=== PATIENT | male | born 1970 | race Caucasian/White ===

== ENCOUNTER 2018-03-24 20:42 | Emergency (ER) | payer OTHER ==
[2018-03-24 20:52] VITALS: O2SAT 97
--- NOTE | 2018-03-24 21:02 | ERPHSYRPT ---
- History of Present Illness Time Seen by Provider: 03/24/18 20:57 Source: patient Exam Limitations: no limitations Patient Subjective Stated Complaint: skilled nursing clearance, etoh intox Triage Nursing Assessment: pt alert and oriented, answers questions approp. pt ambulatory with steady gait noted. respirations nonlabored with lungs cta. skin pink , warm and dry. abrasion noted to lt knee- no bleeding at this time. Physician History: The patient is a 47-year-old male brought in by [facility]'s deputy where he was pulled over all driving under the influence of alcohol. The alcohol breath test registered a 0.294. When the alcohol level is above 0.25, the patient must be seen in the ER for clearance. The patient is walking and talking without problems. He appears somewhat intoxicated. He is a long time known alcoholic. He told the officer he had been drinking many tall cans of [place]. He has no pain. Timing/Duration: today Severity: moderate Modifying Factors: Improves With: nothing Associated Symptoms: denies symptoms Allergies/Adverse Reactions: No Known Drug Allergies Allergy (Verified 03/24/18 20:53) Hx Tetanus, Diphtheria Vaccination/Date Given: Yes Hx Influenza Vaccination/Date Given: No Hx Pneumococcal Vaccination/Date Given: No Immunizations Up to Date: Yes - Review of Systems Constitutional: No Fever, No Chills Eyes: No Symptoms Ears, Nose, & Throat: No Symptoms Respiratory: No Cough, No Dyspnea Cardiac: No Chest Pain, No Edema, No Syncope Abdominal/Gastrointestinal: No Abdominal Pain, No Nausea, No Vomiting, No Diarrhea Genitourinary Symptoms: No Dysuria Musculoskeletal: No Back Pain, No Neck Pain Skin: No Rash Neurological: No Dizziness, No Focal Weakness, No Sensory Changes Psychological: Alcohol Abuse, No Suicidal Ideations Endocrine: No Symptoms Hematologic/Lymphatic: No Symptoms Immunological/Allergic: No Symptoms All Other Systems: Reviewed and Negative - Past Medical History Pertinent Past Medical History: Yes Cardiac History: Hypertension Musculoskeletal History: Arthritis GI Medical History: GERD - Past Surgical History Past Surgical History: No - Social History Smoking Status: Current every day smoker How long have you smoked: years Exposure to second hand smoke: No Drug Use: none Patient Lives Alone: No - Nursing Vital Signs Nursing Vital Signs: Initial Vital Signs Temperature 98.8 F 03/24/18 20:44 Pulse Rate 86 03/24/18 20:44 Respiratory Rate 18 03/24/18 20:44 Blood Pressure 165/117 03/24/18 20:44 O2 Sat by Pulse Oximetry 97 03/24/18 20:44 Pain Scale Pain Intensity 0 - Physical Exam General Appearance: no apparent distress, alert Eye Exam: PERRL/EOMI, eyes nml inspection Ears, Nose, Throat Exam: normal ENT inspection, TMs normal, pharynx normal, moist mucous membranes Neck Exam: normal inspection, non-tender, supple, full range of motion Respiratory Exam: normal breath sounds, lungs clear, No respiratory distress Cardiovascular Exam: regular rate/rhythm, normal heart sounds, normal peripheral pulses Gastrointestinal/Abdomen Exam: soft, normal bowel sounds, No tenderness, No mass Rectal Exam: not done Back Exam: normal inspection, normal range of motion, No CVA tenderness, No vertebral tenderness Extremity Exam: normal inspection, normal range of motion, pelvis stable Neurologic Exam: alert, oriented x 3, cooperative, normal mood/affect, nml cerebellar function, nml station & gait, sensation nml, intoxicated appearance ( mild), No motor deficits Skin Exam: normal color, warm, dry, No rash Lymphatic Exam: No adenopathy SpO2 Interpretation: normal SpO2: 97 Oxygen Delivery: Room Air - Departure Time of Disposition: 21:02 Departure Disposition: Long Term/Usp Clinical Impression: Alcohol intoxication Condition: Stable Critical Care Time: No Referrals: DOCTOR,NO FAMILY [Primary Care Provider] - Additional Instructions: You have alcohol intoxication. You have been cleared for escort by the [facility] kn[facility] helper to skilled nursing. Do not drink and drive.
[2018-03-24 21:21] VITALS: BP 161/109; PULSE 85
== END 2018-03-24 21:21 | disposition home or self-care (01) ==
LOC: ED 20:42
DX: F10.129 Alcohol abuse with intoxication, unspecified (principal)
CPT/HCPCS: 99283

== ENCOUNTER 2021-04-15 17:56 | Emergency (ER) | payer SELFPAY ==
[2021-04-15] MEDS ORDERED: XYLOCAINE 1%/Epi 1:100000 MDV 20 ML ONE (18:03)
--- NOTE | 2021-04-15 18:39 | ERPHSYRPT ---
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 pt has footdrop on right foot and he tripped. denies any LOC. noted 6 cm lac that is bleeding and swollen on arrival. pt states he is able to place tongue through laceration. Physician History: Angel is a 50-year-old male who after drinking suffered a fall and his new dentures caused a less serration to the lip and chin that was through and through. He had no loss of consciousness no other injury. Timing/Duration: today Quality: painful Severity: moderate Location: face Possible Causes: no cause identified Allergies/Adverse Reactions: No Known Drug Allergies Allergy (Verified 04/15/21 18:13) Home Medications: Clopidogrel Bisulfate [Plavix] 75 mg PO DAILY 04/15/21 [History] Meloxicam 7.5 mg PO DAILY 04/15/21 [History] Omeprazole Magnesium [Prilosec Otc] 20 mg PO DAILY 04/15/21 [History] Hx Tetanus, Diphtheria Vaccination/Date Given: Yes Hx Influenza Vaccination/Date Given: No Hx Pneumococcal Vaccination/Date Given: No Immunizations Up to Date: No Travel Risk - International Travel Have you traveled outside of the country in past 3 weeks: No - Coronavirus Screening Are you exhibiting any of the following symptoms?: No Close contact with a COVID-19 positive Pt in past 14-21 Days: No - Vaccine Status Have you recieved a Covid-19 vaccination: No - Review of Systems Constitutional: No Fever, No Chills Eyes: No Symptoms Ears, Nose, & Throat: No Symptoms Respiratory: No Cough, No Dyspnea Cardiac: No Chest Pain, No Edema, No Syncope Abdominal/Gastrointestinal: No Abdominal Pain, No Nausea, No Vomiting, No Diarrhea Genitourinary Symptoms: No Dysuria Musculoskeletal: No Back Pain, No Neck Pain Skin: No Rash Neurological: No Dizziness, No Focal Weakness, No Sensory Changes Psychological: No Symptoms Endocrine: No Symptoms All Other Systems: Reviewed and Negative - Past Medical History Pertinent Past Medical History: Yes Cardiac History: Hypertension Musculoskeletal History: Arthritis GI Medical History: GERD - Past Surgical History Past Surgical History: No - Social History Smoking Status: Current every day smoker How long have you smoked: years Exposure to second hand smoke: No Drug Use: none Patient Lives Alone: No - Nursing Vital Signs Nursing Vital Signs: Initial Vital Signs Pulse Rate 80 04/15/21 18:05 Respiratory Rate 19 04/15/21 18:05 Blood Pressure 203/144 04/15/21 18:05 O2 Sat by Pulse Oximetry 98 04/15/21 18:05 Pain Scale Pain Intensity 7 - Physical Exam General Appearance: no apparent distress, alert Eye Exam: PERRL/EOMI, eyes nml inspection Ears, Nose, Throat Exam: normal ENT inspection, pharynx normal, moist mucous membranes Neck Exam: normal inspection, non-tender, supple, full range of motion Respiratory Exam: normal breath sounds, lungs clear, No respiratory distress Cardiovascular Exam: regular rate/rhythm, normal heart sounds Gastrointestinal/Abdomen Exam: soft, mass, No tenderness Back Exam: normal inspection, normal range of motion, No CVA tenderness, No vertebral tenderness Extremity Exam: normal inspection, normal range of motion Neurologic Exam: alert, oriented x 3, cooperative, normal mood/affect, sensation nml, No motor deficits Skin Exam: normal color, warm, dry, laceration (There is a laceration to the lower lip and chin through and through to the oral mucosa that measure 6 cm it is closed in 2 layers on the skin externally there is 5-0 nylon sutures the oral mucosa is closed with nine 3-0 Vicryl sutures.) SpO2 Interpretation: normal SpO2: 98 O2 Delivery: Room Air Procedures - Laceration/Wound Repair Lower Lip Time of Procedure: 18:40 Wound Location: face Wound Length (cm): 6 Wound's Depth, Shape: linear (A linear 6 cm through and through laceration of the lower lip and chin) Wound Explored: clean Irrigated: Yes Hibiclens Prep: Yes Anesthesia: 1% lidocaine w/ Epi Volume Anesthetic (ccs): 8 Wound Debrided: minimal Suture Size/Type: 5-0, 3-0, nylon (Nylon was used to close the skin), vicryl (Vicryl was used to close the oral mucosa.) Number of Sutures: 15 Layer Closure?: Yes Deep Layer Suture Size/Type: 3:0, chromic Number Deep Layer Sutures: 9 Sterile Dressing Applied?: No Splint Applied?: No Sling Applied?: No - Course Nursing assessment & vital signs reviewed: Yes Ordered Tests: Medication Summary Discontinued Medications Generic Name Dose Route Start Last Admin Trade Name Rojelio PRN Reason Stop Dose Admin Lidocaine/Epinephrine Confirm 04/15/21 18:03 Xylocaine 1%/Epi [id number] Mdv 20 Ml Administered 04/15/21 18:04 Dose 5 ml .ROUTE .[employer] ONE - Progress Progress: improved - Departure Departure Disposition: Home Clinical Impression: Laceration of lip, complicated, Alcohol intoxication Condition: Stable Critical Care Time: No Referrals: DOCTOR,NO FAMILY [Primary Care Provider] - Instructions: Surgical Wound (DC), Laceration Repair With Stitches (DC) Additional Instructions: Watch for infection sutures removal in 7 days Prescriptions: Amoxicillin/Potassium Clav [Augmentin 875-125 Tablet] 875 mg PO BID 10 Days #20 tablet
[2021-04-15 18:45] VITALS: BP 200/125; PULSE 79; O2SAT 97
== END 2021-04-15 18:45 | disposition home or self-care (01) ==
LOC: ED 17:56
DX: S01.511A Laceration without foreign body of lip, initial encounter (principal); F10.129 Alcohol abuse with intoxication, unspecified; W01.0XXA Fall on same level from slipping, tripping and stumbling without subsequent striking against object, initial encounter; I10 Essential (primary) hypertension; Z79.899 Other long term (current) drug therapy
CPT/HCPCS: 99283

== ENCOUNTER 2022-10-02 00:18 | Observation (INO) | payer OTHER, BC ==
--- NOTE | 2022-10-02 00:30 | ERPHSYRPT ---
- History of Present Illness Time Seen by Provider: 10/02/22 00:30 Historian: patient Exam Limitations: no limitations Physician History: This is a 52-year-old white male patient who does consume alcohol but too much less extent than he used to and has a history of recurrent pancreatitis. He presents with 2-day history of upper bilateral abdominal pain and bilateral f lank pain. Patient states the last time he consumed any alcohol was 12 hours ago. He does have a past history of alcohol abuse. Patient has a history of gastroesophageal reflux disease and hypertension. He did vomit twice but it was after taking pain medicine on an empty stomach in the last 12 hours Quality: aching Abdominal Pain Onset Location: RUQ, LUQ, flank Pain Radiation: flank (Bilateral) Severity of Pain-Max: moderate Severity of Pain-Current: moderate Modifying Factors: Improves With: vomiting (Twice after taking tramadol on an empty stomach) Associated Symptoms: nausea, vomiting, No chest pain, No fever/chills, No shortness of breath Previous symptoms: same symptoms as today, no recent treatment Allergies/Adverse Reactions: No Known Drug Allergies Allergy (Verified 10/02/22 01:52) Home Medications: Clopidogrel Bisulfate [Plavix] 75 mg PO DAILY 04/15/21 [History] Omeprazole Magnesium [Prilosec Otc] 20 mg PO DAILY 04/15/21 [History] Amlodipine Besylate 5 mg PO DAILY 10/02/22 [History] Losartan Potassium 50 mg [Cozaar 50 MG] 50 mg PO DAILY 10/02/22 [History] Metoprolol Succinate 25 mg Xl* [Toprol-Xl 25MG Tablets] 25 mg PO DAILY 10/02/22 [History] Hx Tetanus, Diphtheria Vaccination/Date Given: Yes Hx Influenza Vaccination/Date Given: No Hx Pneumococcal Vaccination/Date Given: No Travel Risk - International Travel Have you traveled outside of the country in past 3 weeks: No - Coronavirus Screening Are you exhibiting any of the following symptoms?: No Close contact with a COVID-19 positive Pt in past 14-21 Days: No - Vaccine Status Have you recieved a Covid-19 vaccination: No - Review of Systems Constitutional: No Symptoms Eyes: No Symptoms Ears, Nose, & Throat: No Symptoms Respiratory: No Symptoms Cardiac: No Symptoms Abdominal/Gastrointestinal: Abdominal Pain, Vomiting Genitourinary Symptoms: No Symptoms Musculoskeletal: No Symptoms Skin: No Symptoms Neurological: No Symptoms Psychological: No Symptoms Endocrine: No Symptoms Hematologic/Lymphatic: No Symptoms Immunological/Allergic: No Symptoms All Other Systems: Reviewed and Negative - Past Medical History Pertinent Past Medical History: Yes Cardiac History: Hypertension Musculoskeletal History: Arthritis GI Medical History: GERD - Past Surgical History Past Surgical History: No - Social History Smoking Status: Current every day smoker How long have you smoked: years Exposure to second hand smoke: No Drug Use: none Patient Lives Alone: No - Nursing Vital Signs Nursing Vital Signs: Initial Vital Signs Temperature 97.8 F 10/02/22 01:44 Pulse Rate 73 10/02/22 01:44 Respiratory Rate 18 10/02/22 01:44 Blood Pressure 175/102 10/02/22 01:44 O2 Sat by Pulse Oximetry 99 10/02/22 01:44 Pain Scale Pain Intensity 4 - Physical Exam General Appearance: no apparent distress, alert, anxiety Eye Exam: PERRL/EOMI, eyes nml inspection Ears, Nose, Throat Exam: normal ENT inspection, moist mucous membranes Neck Exam: normal inspection, non-tender, supple, full range of motion Respiratory Exam: normal breath sounds, lungs clear, airway intact, No chest tenderness, No respiratory distress Cardiovascular Exam: regular rate/rhythm, normal heart sounds, normal peripheral pulses Gastrointestinal/Abdomen Exam: soft, normal bowel sounds, tenderness (Bilateral upper quadrant region), guarding (Mild with palpation in the bilateral upper quadrants of the abdomen) Rectal Exam: not done Back Exam: normal inspection, normal range of motion, No CVA tenderness, No vertebral tenderness Extremity Exam: normal inspection, normal range of motion, pelvis stable Neurologic Exam: alert, oriented x 3, cooperative, nurse assistant II-XII nml as tested, normal mood/affect, nml cerebellar function, nml station & gait, sensation nml Skin Exam: normal color, warm, dry Lymphatic Exam: No adenopathy SpO2 Interpretation: normal O2 Delivery: Room Air - Course Nursing assessment & vital signs reviewed: Yes Ordered Tests: Active Orders 24 hr Category Date Time Status IV Insertion STAT Care 10/02/22 01:43 Active ABDOMEN AND PELVIS W/0 CONTRAS [CT] Stat Exams 10/02/22 01:43 Taken AMYLASE Stat Lab 10/02/22 02:03 Completed CBC W DIFF Stat Lab 10/02/22 02:03 Completed CMP Stat Lab 10/02/22 02:03 Completed ETHYL ALCOHOL Stat Lab 10/02/22 02:03 Completed LIPASE Stat Lab 10/02/22 02:03 Completed Lactic Acid Stat Lab 10/02/22 02:20 Completed UA W/RFX CULTURE Stat Lab 10/02/22 01:47 Completed Medication Summary Discontinued Medications Generic Name Dose Route Start Last Admin Trade Name Figueroaq PRN Reason Stop Dose Admin Hydromorphone HCl 1 mg 10/02/22 01:43 10/02/22 02:07 Hydromorphone 1 Mg/1ml Inj 1 Mg/Ml Syringe IV 10/02/22 01:44 1 mg STAT ONE Administration Hydromorphone HCl Confirm 10/02/22 02:00 Hydromorphone 1 Mg/1ml Inj 1 Mg/Ml Syringe Administered 10/02/22 02:01 Dose 1 mg .ROUTE .STK-MED ONE Sodium Chloride 1,000 mls @ 999 mls/hr 10/02/22 01:43 10/02/22 02:07 Sodium Chloride 0.9% 1000 Ml IV 10/02/22 02:43 999 mls/hr .Q1H1M STA Administration Sodium Chloride Confirm 10/02/22 02:00 Sodium Chloride 0.9% 1000 Ml Administered 10/02/22 02:01 Dose 1,000 mls @ ud .ROUTE .STK-MED ONE Sodium Chloride 1,000 mls @ 999 mls/hr 10/02/22 02:59 10/02/22 03:07 Sodium Chloride 0.9% 1000 Ml IV 10/02/22 03:59 999 mls/hr .Q1H1M STA Administration Sodium Chloride Confirm 10/02/22 03:06 Sodium Chloride 0.9% 1000 Ml Administered 10/02/22 03:07 Dose 1,000 mls @ ud .ROUTE .STK-MED ONE Ondansetron HCl 4 mg 10/02/22 01:43 10/02/22 02:07 Ondansetron Hcl 4 Mg/2 Ml Vial IV 10/02/22 01:44 4 mg STAT ONE Administration Ondansetron HCl Confirm 10/02/22 02:00 Ondansetron Hcl 4 Mg/2 Ml Vial Administered 10/02/22 02:01 Dose 4 mg .ROUTE .STK-MED ONE Pantoprazole Sodium 40 mg 10/02/22 01:43 10/02/22 02:06 Pantoprazole 40 Mg Vial IV 10/02/22 01:44 40 mg STAT ONE Administration Pantoprazole Sodium Confirm 10/02/22 02:00 Pantoprazole 40 Mg Vial Administered 10/02/22 02:01 Dose 40 mg IV .[facility] ONE Lab/Rad Data: Laboratory Result Diagrams 10/02/22 02:03 10/02/22 02:03 Laboratory Results 10/02/22 10/02/22 10/02/22 Range/Units 03:10 02:20 02:03 WBC (4.0-10.5) x10^3/uL RBC (4.1-5.6) x10^6/uL Hgb (12.5-18.0) g/dL Hct (42-50) % MCV (78-100) fL MCH (26-32) pg MCHC (32-36) g/dL RDW (11.5-14.0) % Plt Count (150-450) x10^3/uL MPV (7.5-11.0) fL Gran % (36.0-66.0) % Immature Gran % (Auto) (0.00-0.4) % Nucleat RBC Rel Count (0.00-0.1) % Eos # (Auto) (0-0.5) x10^3/uL Immature Gran # (Auto) (0.00-0.03) x10^3u/L Absolute Lymphs (auto) (1.0-4.6) x10^3/uL Absolute Monos (auto) (0.0-1.3) x10^3/uL Absolute Nucleated RBC (0.00-0.01) x10^3u/L Lymphocytes % (24.0-44.0) % Monocytes % (0.0-12.0) % Eosinophils % (0.00-5.0) % Basophils % (0.0-0.4) % Absolute Granulocytes (1.4-6.9) x10^3/uL Basophils # (0-0.4) x10^3/uL Sodium (137-145) mmol/L Potassium (3.5-5.1) mmol/L Chloride (98-107) mmol/L Carbon Dioxide (22-30) mmol/L Anion Gap (5-15) MEQ/L BUN (9-20) mg/dL Creatinine (0.66-1.25) mg/dL Estimated GFR ML/MIN Glucose (74-106) mg/dL Lactic Acid 1.0 (0.4-2.0) Calcium (8.4-10.2) mg/dL Total Bilirubin (0.2-1.3) mg/dL AST (17-59) U/L ALT (0-50) U/L Alkaline Phosphatase (38-126) U/L Serum Total Protein (6.3-8.2) g/dL Albumin (3.5-5.0) g/dL Amylase (30-110) U/L Lipase (23-300) U/L Urinalys Dipstick Clnc Urine Color (YELLOW) Urine Appearance (CLEAR) Urine pH (5-6) Ur Specific [place] (1.005-1.025) POC Urine Protein Conf (Negative) Urine Ketones (NEGATIVE) Urine Nitrite (NEGATIVE) Urine Bilirubin (NEGATIVE) Urine Urobilinogen (0-1) mg/dL Urine Leukocytes (NEGATIVE) Urine WBC (Auto) (0-5) /HPF Urine RBC (Auto) (0-2) /HPF U Epithel Cells (Auto) (FEW) /HPF Urine Bacteria (Auto) (NEGATIVE) /HPF Urine RBC (0-5) Ayad/ul Ur Culture Indicated? Urine Glucose (NEGATIVE) mg/dL Ethyl Alcohol < 10 (0-10) mg/dL Influenza Type A Ag NEGATIVE (NEGATIVE) Influenza Type B Ag NEGATIVE (NEGATIVE) RSV (PCR) NEGATIVE (Negative) SARS-CoV-2 (PCR) NEGATIVE (NEGATIVE) 10/02/22 10/02/22 10/02/22 Range/Units 02:03 02:03 01:47 WBC 11.3 H (4.0-10.5) x10^3/uL RBC 5.32 (4.1-5.6) x10^6/uL Hgb 16.3 (12.5-18.0) g/dL Hct 48.0 (42-50) % MCV 90.2 (78-100) fL MCH 30.6 (26-32) pg MCHC 34.0 (32-36) g/dL RDW 12.4 (11.5-14.0) % Plt Count 223 (150-450) x10^3/uL MPV 9.4 (7.5-11.0) fL Gran % 76.5 H (36.0-66.0) % Immature Gran % (Auto) 0.3 (0.00-0.4) % Nucleat RBC Rel Count 0.0 (0.00-0.1) % Eos # (Auto) 0.16 (0-0.5) x10^3/uL Immature Gran # (Auto) 0.03 (0.00-0.03) x10^3u/L Absolute Lymphs (auto) 1.24 (1.0-4.6) x10^3/uL Absolute Monos (auto) 1.20 (0.0-1.3) x10^3/uL Absolute Nucleated RBC 0.00 (0.00-0.01) x10^3u/L Lymphocytes % 11.0 L (24.0-44.0) % Monocytes % 10.6 (0.0-12.0) % Eosinophils % 1.4 (0.00-5.0) % Basophils % 0.2 (0.0-0.4) % Absolute Granulocytes 8.63 H (1.4-6.9) x10^3/uL Basophils # 0.02 (0-0.4) x10^3/uL Sodium 127 L (137-145) mmol/L Potassium 4.3 (3.5-5.1) mmol/L Chloride 95 L (98-107) mmol/L Carbon Dioxide 25 (22-30) mmol/L Anion Gap 12.0 (5-15) MEQ/L BUN 7 L (9-20) mg/dL Creatinine 0.52 L (0.66-1.25) mg/dL Estimated GFR > 60.0 ML/MIN Glucose 117 H (74-106) mg/dL Lactic Acid (0.4-2.0) Calcium 9.1 (8.4-10.2) mg/dL Total Bilirubin 0.70 (0.2-1.3) mg/dL AST 35 (17-59) U/L ALT 31 (0-50) U/L Alkaline Phosphatase 79 (38-126) U/L Serum Total Protein 8.1 (6.3-8.2) g/dL Albumin 4.4 (3.5-5.0) g/dL Amylase 1645 H (30-110) U/L Lipase 38780 H (23-300) U/L Urinalys Dipstick Clnc MAIN LAB Urine Color YELLOW (YELLOW) Urine Appearance CLEAR (CLEAR) Urine pH 6.5 (5-6) Ur Specific [place] 1.015 (1.005-1.025) POC Urine Protein Conf NEGATIVE (Negative) Urine Ketones SMALL-15 A (NEGATIVE) Urine Nitrite NEGATIVE (NEGATIVE) Urine Bilirubin NEGATIVE (NEGATIVE) Urine Urobilinogen 0.2 (0-1) mg/dL Urine Leukocytes NEGATIVE (NEGATIVE) Urine WBC (Auto) 0-2 (0-5) /HPF Urine RBC (Auto) NONE (0-2) /HPF U Epithel Cells (Auto) RARE (FEW) /HPF Urine Bacteria (Auto) NONE SEEN (NEGATIVE) /HPF Urine RBC NEGATIVE (0-5) Ayad/ul Ur Culture Indicated? NO Urine Glucose NEGATIVE (NEGATIVE) mg/dL Ethyl Alcohol (0-10) mg/dL Influenza Type A Ag (NEGATIVE) Influenza Type B Ag (NEGATIVE) RSV (PCR) (Negative) SARS-CoV-2 (PCR) (NEGATIVE) - Progress Progress: improved, pain not gone completely Progress Note: 10/02/22 04:56 CAT scan of the abdomen pelvis shows. Pancreatic stranding with pancreatic swelling. There is no pancreatic abscess or fluid collection. Medical decision making: This patient has acute pancreatitis. I spoke with Dr. Rhoades who is covering for unassigned patients. He accepts the patient for placement in the hospital for observation. Patient clinically states that he is improving. [facility]. Counseled pt/family regarding: lab results, diagnosis, rad results - Departure Departure Disposition: Observation Clinical Impression: Acute pancreatitis Condition: Stable Critical Care Time: No Referrals: HOSPITAL,'S [Primary Care Provider] - Follow up/PCP as directed
[2022-10-02] MEDS ORDERED: Sodium Chloride 0.9% 1000 ML 1,000 ML IV STA ×2 (01:43→02:59)
[2022-10-02] MEDS ORDERED: Hydromorphone 1 mg/ml Injection IV ONE (01:43)
[2022-10-02] MEDS ORDERED: PROTONIX 40 MG IV IV ONE ×3 (01:43→05:34)
[2022-10-02] MEDS ORDERED: Zofran 4 MG/2 ML VIAL IV ONE (01:43)
[2022-10-02] MEDS ORDERED: Zofran 4 MG/2 ML VIAL ONE (02:00)
[2022-10-02] MEDS ORDERED: Sodium Chloride 0.9% 1000 ML 1,000 ML ONE ×2 (02:00→03:06)
[2022-10-02] MEDS ORDERED: Hydromorphone 1 mg/ml Injection ONE (02:00)
[2022-10-02 02:06] LABS: Appearance CLEAR (CLEAR); Bilirubin NEGATIVE (NEGATIVE); Epithelial Cells RARE /HPF (FEW); Glucose NEGATIVE (NEGATIVE); Ketones SMALL-15 (NEGATIVE); Nitrite NEGATIVE (NEGATIVE); Ph 6.5 (5-6); Protein,Urine Dip NEGATIVE (Negative); RBC NEGATIVE Ery/ul (0-5); Specific Gravity 1.015 (1.005-1.025); Urobilinogen 0.2 mg/dL (0-1); WBC 0-2 /HPF (0-5)
[2022-10-02 02:06] LABS: Absolute Neutrophil Ct (ANC) 8.63 x10^3/uL (1.4-6.9); Basophil (Absolute #) 0.02 x10^3/uL (0-0.4); Eosinophil % 1.4 % (0.00-5.0); Eosinophil (Absolute #) 0.16 x10^3/uL (0-0.5); Hemoglobin 16.3 g/dL (12.5-18.0); Lymphocyte (Absolute #) 1.24 x10^3/uL (1.0-4.6); Mean Cell Volume 90.2 fL (78-100); Mean Corpuscular Hemoglobin 30.6 pg (26-32); Mean Platelet Volume 9.4 fL (7.5-11.0); Monocytes % 10.6 % (0.0-12.0); Neutrophil % 76.5 % (36.0-66.0); Platelet Count 223 x10^3/uL (150-450); Red Blood Count 5.32 x10^6/uL (4.1-5.6); Red Cell Distribution Width 12.4 % (11.5-14.0); White Blood Count 11.3 x10^3/uL (4.0-10.5)
[2022-10-02 02:07] LABS: Bacteria NONE SEEN /HPF (NEGATIVE); Dipstick done @ ? MAIN LAB; Urine Cultured Indicated? NO
[2022-10-02 02:22] LABS: ALBUMIN 4.4 g/dL (3.5-5.0); ALKALINE PHOSPHATASE 79 U/L (38-126); BLOOD UREA NITROGEN 7 mg/dL (9-20); CHLORIDE 95 mmol/L (98-107); Calcium 9.1 mg/dL (8.4-10.2); Carbon Dioxide 25 mmol/L (22-30); Creatinine 1 0.52 mg/dL (0.66-1.25); EST GLOMERULAR FILTRATION RATE > 60.0 ML/MIN; Glucose 117 mg/dL (74-106); Potassium 4.3 mmol/L (3.5-5.1); SGOT/AST 35 U/L (17-59); SGPT/ALT 31 U/L (0-50); SODIUM 127 mmol/L (137-145); Total Protein 8.1 g/dL (6.3-8.2)
[2022-10-02 02:28] LABS: AMYLASE 1645 U/L (30-110)
[2022-10-02 02:44] LABS: LIPASE 15112 U/L (23-300)
[2022-10-02 03:48] LABS: INFLUENZA A NEGATIVE (NEGATIVE); INFLUENZA B NEGATIVE (NEGATIVE); RESPIRATORY SYNCTIAL VIRUS NEGATIVE (Negative); SARS-CoV-2 Xpert Express NEGATIVE (NEGATIVE)
[2022-10-02] MEDS ORDERED: TYLENOL 325 MG PO PRN (05:34)
[2022-10-02] MEDS ORDERED: Zofran 4 MG/2 ML VIAL IV PRN (05:34)
[2022-10-02] MEDS ORDERED: Ativan 2 MG/1 ML VIAL IV PRN (05:34)
[2022-10-02] MEDS: Hydromorphone 1 mg/ml Injection IV PRN ×5 (05:45→23:20)
[2022-10-02] MEDS: Sodium Chloride 0.9% 1000 ML 1,000 ML IV SCH ×3 (05:45→21:19)
--- NOTE | 2022-10-02 09:05 | XRAY ---
Indication: Abdomen/pelvic pain and diarrhea. History of pancreatitis. Multiple contiguous axial images obtained through the abdomen and pelvis without contrast. Comparison: None Lung bases clear. Heart not enlarged. Noncontrasted stomach and bowel loops appear nonobstructed with normal appendix and minimal sigmoid diverticulosis. Pancreas mildly edematous with mild peripancreatic stranding favoring acute pancreatitis. No free fluid/air. Mild diffuse fatty liver. Remaining liver, gallbladder, spleen, adrenal glands, kidneys, ureters, and bladder are unremarkable for noncontrast exam. Mild scattered aortoiliac calcifications without AAA. Osseous structures intact with minimal degenerative changes throughout the spine. Impression: 1. CT findings favoring acute pancreatitis. No free fluid/air. 2. Colonic diverticulosis, fatty liver, arteriosclerotic disease, chronic bony findings. Comment: Preliminary interpretation by [facility]. No critical discrepancy.
[2022-10-02] MEDS: NORVASC 5 MG PO SCH (09:10)
[2022-10-02] MEDS: FOLATE 1 MG PO SCH (09:10)
[2022-10-02] MEDS: PLAVIX Tablet PO SCH (09:10)
[2022-10-02] MEDS: VITAMIN B-1 100 MG PO SCH (09:10)
[2022-10-02] MEDS: Toprol-Xl 25MG Tablets PO SCH (09:10)
[2022-10-02] MEDS: Protonix 40MG Tablet PO SCH (09:11)
[2022-10-02] MEDS: THERAGRAN MULTIVITAMIN PO SCH (09:11)
[2022-10-02] MEDS: Cozaar 50 MG PO SCH (09:11)
[2022-10-02] MEDS ORDERED: NON-FORMULARY ITEM (Omeprazole Magnesium [Prilosec Otc] 20 MG Tablet.Dr) PO SCH (10:00)
--- NOTE | 2022-10-02 13:02 | PCM.HP ---
History of Present Illness - Chief Complaint Chief Complaint: Pancreatitis History of Present Illness: Mr.LEWIS WALLACE is a 52 year old male.presents with 2-day history of upper bilateral abdominal pain and bilateral flank pain. Patient states the last time he consumed any alcohol was 12 hours ago. He does have a past history of alcohol abuse. Patient has a history of gastroesophageal reflux disease and hypertension. He did vomit twice but it was after taking pain medicine on an empty stomach in the last 12 hours Quality: aching Abdominal Pain Onset Location: RUQ, LUQ, flank Pain Radiation: flank (Bilateral) Severity of Pain-Max: moderate Severity of Pain-Current: moderate Modifying Factors: Improves With: vomiting (Twice after taking tramadol on an empty stomach) Associated Symptoms: nausea, vomiting, No chest pain, No fever/chills, No shortness of breath Previous symptoms: same symptoms as today, no recent treatment - Review of Systems Constitutional: No Fever, No Chills Eyes: No Symptoms Ears, Nose, & Throat: No Symptoms Respiratory: No Cough, No Short Of Breath Cardiac: No Chest Pain, No Edema, No Syncope Abdominal/Gastrointestinal: Abdominal Pain, Nausea, Vomiting, No Diarrhea Genitourinary Symptoms: No Dysuria Musculoskeletal: No Back Pain, No Neck Pain Skin: No Rash Neurological: No Dizziness, No Focal Weakness, No Sensory Changes Psychological: No Symptoms Endocrine: No Symptoms Hematologic/Lymphatic: No Symptoms Immunological/Allergic: No Symptoms Medications & Allergies Home Medications: Home Medication List Clopidogrel Bisulfate [Plavix] 75 mg PO DAILY 04/15/21 [History Confirmed 10/02/22] Omeprazole Magnesium [Prilosec Otc] 20 mg PO DAILY 04/15/21 [History Confirmed 10/02/22] Amlodipine Besylate 5 mg PO DAILY 10/02/22 [History Confirmed 10/02/22] Losartan Potassium 50 mg [Cozaar 50 MG] 50 mg PO DAILY 10/02/22 [History Confirmed 10/02/22] Metoprolol Succinate 25 mg Xl* [Toprol-Xl 25MG Tablets] 25 mg PO DAILY 10/02/22 [History Confirmed 10/02/22] Allergies/Adverse Reactions: Allergies Allergy/AdvReac Type Severity Reaction Status Date / Time No Known Drug Allergies Allergy Verified 10/02/22 05:39 - Past Medical History Past Medical History: Yes Neurological History: TIA ENT History: No Pertinent History Cardiac History: Coronary Artery Disease, High Cholesterol, Hypertension Respiratory History: Asthma, Pulmonary Embolism Endocrine Medical History: No Pertinent History Musculoskelatal History: Arthritis GI Medical History: GERD, Pancreatitis History: No Pertinent History Pyscho-Social History: No Pertinent History Male Reproductive Disorders: No Pertinent History Comment: PFO - Past Surgical History Past Surgical History: No Neuro Surgical History: No Pertinent History Cardiac History: No Pertinent History Respiratory Surgery: No Pertinent History GI Surgical History: No Pertinent History Genitourinary Surgical Hx: No Pertinent History Musculskeletal Surgical Hx: No Pertinent History Male Surgical History: Vasectomy - Social History Smoking Status: Current every day smoker How long have you smoked: 30 years Exposure to second hand smoke: No Alcohol: Daily Drug Use: none - Physical Exam Vital Signs: Vital Signs - 24 hr Temp Pulse Resp BP Pulse Ox 10/02/22 12:00 98.3 F 75 18 141/82 93 L 10/02/22 08:00 18 10/02/22 07:10 98.5 F 80 16 109/64 96 10/02/22 05:51 97.8 F 80 16 174/107 95 10/02/22 05:25 83 16 163/107 99 10/02/22 04:00 68 16 154/112 98 10/02/22 03:00 73 18 146/102 96 10/02/22 02:00 70 18 156/102 96 10/02/22 01:44 97.8 F 73 18 175/102 99 General Appearance: no apparent distress, alert Neurologic Exam: alert, oriented x 3, cooperative, normal mood/affect, nml cerebellar function, nml station & gait, sensation nml, No motor deficits Eye Exam: PERRL/EOMI, eyes nml inspection Ears, Nose, Throat Exam: normal ENT inspection, TMs normal, pharynx normal, moist mucous membranes Neck Exam: normal inspection, non-tender, supple, full range of motion Respiratory Exam: normal breath sounds, lungs clear, No respiratory distress Cardiovascular Exam: regular rate/rhythm, normal heart sounds, normal peripheral pulses Gastrointestinal/Abdomen Exam: soft, normal bowel sounds, No tenderness, No mass Back Exam: normal inspection, normal range of motion, No CVA tenderness, No vertebral tenderness Extremity Exam: normal inspection, normal range of motion, pelvis stable Skin Exam: normal color, warm, dry, No rash Lymphatic Exam: No adenopathy Results - Labs Lab/Micro Results: Lab Results-Last 24 Hours 10/02/22 10/02/22 10/02/22 Range/Units 01:47 02:03 02:03 WBC 11.3 H (4.0-10.5) x10^3/uL RBC 5.32 (4.1-5.6) x10^6/uL Hgb 16.3 (12.5-18.0) g/dL Hct 48.0 (42-50) % MCV 90.2 (78-100) fL MCH 30.6 (26-32) pg MCHC 34.0 (32-36) g/dL RDW 12.4 (11.5-14.0) % Plt Count 223 (150-450) x10^3/uL MPV 9.4 (7.5-11.0) fL Gran % 76.5 H (36.0-66.0) % Immature Gran % (Auto) 0.3 (0.00-0.4) % Nucleat RBC Rel Count 0.0 (0.00-0.1) % Eos # (Auto) 0.16 (0-0.5) x10^3/uL Immature Gran # (Auto) 0.03 (0.00-0.03) x10^3u/L Absolute Lymphs (auto) 1.24 (1.0-4.6) x10^3/uL Absolute Monos (auto) 1.20 (0.0-1.3) x10^3/uL Absolute Nucleated RBC 0.00 (0.00-0.01) x10^3u/L Lymphocytes % 11.0 L (24.0-44.0) % Monocytes % 10.6 (0.0-12.0) % Eosinophils % 1.4 (0.00-5.0) % Basophils % 0.2 (0.0-0.4) % Absolute Granulocytes 8.63 H (1.4-6.9) x10^3/uL Basophils # 0.02 (0-0.4) x10^3/uL Sodium 127 L (137-145) mmol/L Potassium 4.3 (3.5-5.1) mmol/L Chloride 95 L (98-107) mmol/L Carbon Dioxide 25 (22-30) mmol/L Anion Gap 12.0 (5-15) MEQ/L BUN 7 L (9-20) mg/dL Creatinine 0.52 L (0.66-1.25) mg/dL Estimated GFR > 60.0 ML/MIN Glucose 117 H (74-106) mg/dL Lactic Acid (0.4-2.0) Calcium 9.1 (8.4-10.2) mg/dL Total Bilirubin 0.70 (0.2-1.3) mg/dL AST 35 (17-59) U/L ALT 31 (0-50) U/L Alkaline Phosphatase 79 (38-126) U/L Serum Total Protein 8.1 (6.3-8.2) g/dL Albumin 4.4 (3.5-5.0) g/dL Amylase 1645 H (30-110) U/L Lipase 47937 H (23-300) U/L Urinalys Dipstick Clnc MAIN LAB Urine Color YELLOW (YELLOW) Urine Appearance CLEAR (CLEAR) Urine pH 6.5 (5-6) Ur Specific Osteen 1.015 (1.005-1.025) POC Urine Protein Conf NEGATIVE (Negative) Urine Ketones SMALL-15 A (NEGATIVE) Urine Nitrite NEGATIVE (NEGATIVE) Urine Bilirubin NEGATIVE (NEGATIVE) Urine Urobilinogen 0.2 (0-1) mg/dL Urine Leukocytes NEGATIVE (NEGATIVE) Urine WBC (Auto) 0-2 (0-5) /HPF Urine RBC (Auto) NONE (0-2) /HPF U Epithel Cells (Auto) RARE (FEW) /HPF Urine Bacteria (Auto) NONE SEEN (NEGATIVE) /HPF Urine RBC NEGATIVE (0-5) Ayad/ul Ur Culture Indicated? NO Urine Glucose NEGATIVE (NEGATIVE) mg/dL Ethyl Alcohol (0-10) mg/dL Influenza Type A Ag (NEGATIVE) Influenza Type B Ag (NEGATIVE) RSV (PCR) (Negative) SARS-CoV-2 (PCR) (NEGATIVE) 10/02/22 10/02/22 10/02/22 Range/Units 02:03 02:20 03:10 WBC (4.0-10.5) x10^3/uL RBC (4.1-5.6) x10^6/uL Hgb (12.5-18.0) g/dL Hct (42-50) % MCV (78-100) fL MCH (26-32) pg MCHC (32-36) g/dL RDW (11.5-14.0) % Plt Count (150-450) x10^3/uL MPV (7.5-11.0) fL Gran % (36.0-66.0) % Immature Gran % (Auto) (0.00-0.4) % Nucleat RBC Rel Count (0.00-0.1) % Eos # (Auto) (0-0.5) x10^3/uL Immature Gran # (Auto) (0.00-0.03) x10^3u/L Absolute Lymphs (auto) (1.0-4.6) x10^3/uL Absolute Monos (auto) (0.0-1.3) x10^3/uL Absolute Nucleated RBC (0.00-0.01) x10^3u/L Lymphocytes % (24.0-44.0) % Monocytes % (0.0-12.0) % Eosinophils % (0.00-5.0) % Basophils % (0.0-0.4) % Absolute Granulocytes (1.4-6.9) x10^3/uL Basophils # (0-0.4) x10^3/uL Sodium (137-145) mmol/L Potassium (3.5-5.1) mmol/L Chloride (98-107) mmol/L Carbon Dioxide (22-30) mmol/L Anion Gap (5-15) MEQ/L BUN (9-20) mg/dL Creatinine (0.66-1.25) mg/dL Estimated GFR ML/MIN Glucose (74-106) mg/dL Lactic Acid 1.0 (0.4-2.0) Calcium (8.4-10.2) mg/dL Total Bilirubin (0.2-1.3) mg/dL AST (17-59) U/L ALT (0-50) U/L Alkaline Phosphatase (38-126) U/L Serum Total Protein (6.3-8.2) g/dL Albumin (3.5-5.0) g/dL Amylase (30-110) U/L Lipase (23-300) U/L Urinalys Dipstick Clnc Urine Color (YELLOW) Urine Appearance (CLEAR) Urine pH (5-6) Ur Specific Osteen (1.005-1.025) POC Urine Protein Conf (Negative) Urine Ketones (NEGATIVE) Urine Nitrite (NEGATIVE) Urine Bilirubin (NEGATIVE) Urine Urobilinogen (0-1) mg/dL Urine Leukocytes (NEGATIVE) Urine WBC (Auto) (0-5) /HPF Urine RBC (Auto) (0-2) /HPF U Epithel Cells (Auto) (FEW) /HPF Urine Bacteria (Auto) (NEGATIVE) /HPF Urine RBC (0-5) Ayad/ul Ur Culture Indicated? Urine Glucose (NEGATIVE) mg/dL Ethyl Alcohol < 10 (0-10) mg/dL Influenza Type A Ag NEGATIVE (NEGATIVE) Influenza Type B Ag NEGATIVE (NEGATIVE) RSV (PCR) NEGATIVE (Negative) SARS-CoV-2 (PCR) NEGATIVE (NEGATIVE) - Radiology Impressions Radiology Exams & Impressions: Radiology Procedures Category Date Time Status ABDOMEN AND PELVIS W/0 CONTRAS [CT] Stat Exams 10/02/22 01:43 Completed Ultrasound Gallbladder [GALLBLADDER] [US] Urgent Exams 10/02/[address]/ABDOMEN AND PELVIS W/0 CONTRAS Indication: Abdomen/pelvic pain and diarrhea. History of pancreatitis. Multiple contiguous axial images obtained through the abdomen and pelvis without contrast. Comparison: None Lung bases clear. Heart not enlarged. Noncontrasted stomach and bowel loops appear nonobstructed with normal appendix and minimal sigmoid diverticulosis. Pancreas mildly edematous with mild peripancreatic stranding favoring acute pancreatitis. No free fluid/air. Mild diffuse fatty liver. Remaining liver, gallbladder, spleen, adrenal glands, kidneys, ureters, and bladder are unremarkable for noncontrast exam. Mild scattered aortoiliac calcifications without AAA. Osseous structures intact with minimal degenerative changes throughout the spine. Impression: 1. CT findings favoring acute pancreatitis. No free fluid/air. 2. Colonic diverticulosis, fatty liver, arteriosclerotic disease, chronic bony findings. Assessment/Plan (1) Acute pancreatitis Current Visit: Yes Status: Acute Qualifiers: Pancreatitis type: alcohol induced Assessment & Plan: Chief Complaint Diagnosis Pancreatitis Allergies Allergy/AdvReac Type Severity Reaction Status Date / Time No Known Drug Allergies Allergy Verified 10/02/22 05:39 Vital Signs (Last 24 hours) Temp Pulse Resp BP Pulse Ox 10/02/22 12:00 98.3 F 75 18 141/82 93 L 10/02/22 08:00 18 10/02/22 07:10 98.5 F 80 16 109/64 96 10/02/22 05:51 97.8 F 80 16 174/107 95 10/02/22 05:25 83 16 163/107 99 10/02/22 04:00 68 16 154/112 98 10/02/22 03:00 73 18 146/102 96 10/02/22 02:00 70 18 156/102 96 10/02/22 01:44 97.8 F 73 18 175/102 99 Home Medications Medication Instructions Recorded Confirmed Last Taken Type Amlodipine Besylate 5 mg PO DAILY 10/02/22 10/02/22 10/01/22 10:00 History Losartan Potassium 50 mg 50 mg PO DAILY 10/02/22 10/02/22 10/01/22 10:00 History [Cozaar 50 MG] Metoprolol Succinate 25 mg Xl* 25 mg PO DAILY 10/02/22 10/02/22 10/01/22 10:00 History [Toprol-Xl 25MG Tablets] Current Medications Generic Name Dose Route Start Last Admin Trade Name Freq PRN Reason Stop Dose Admin Acetaminophen 650 mg 10/02/22 05:34 Acetaminophen 325 Mg Tablet PO 11/01/22 05:33 Q4H PRN PRN PAIN, FEVER, HEADACHE Amlodipine Besylate 5 mg 10/02/22 10:00 10/02/22 09:10 Amlodipine Besylate 5 Mg Tablet PO 11/01/22 09:59 5 mg DAILY KAYLEE Administration Clopidogrel Bisulfate 75 mg 10/02/22 10:00 10/02/22 09:10 Clopidogrel Bisulfate 75 Mg Tablet PO 11/01/22 09:59 75 mg DAILY KAYLEE Administration Folic Acid 1 mg 10/02/22 10:00 10/02/22 09:10 Folic Acid 1 Mg Tablet PO 11/01/22 09:59 1 mg DAILY KAYLEE Administration Hydromorphone HCl 1 mg 10/02/22 05:34 10/02/22 10:03 Hydromorphone 1 Mg/1ml Inj 1 Mg/Ml Syringe IV 10/07/22 05:33 1 mg Q4H PRN PRN Administration PAIN Sodium Chloride 1,000 mls @ 125 mls/hr 10/02/22 05:34 10/02/22 11:48 Sodium Chloride 0.9% 1000 Ml IV 11/01/22 05:33 125 mls/hr .Q8H KAYLEE Administration Lorazepam 1 mg 10/02/22 05:34 Lorazepam 2 Mg/1 Ml 2 Mg Vial IV 11/01/22 05:33 Q2H PRN PRN ANXIETY/AGITATION Losartan Potassium 50 mg 10/02/22 10:00 10/02/22 09:11 Losartan Potassium 50 Mg Tablet PO 11/01/22 09:59 50 mg DAILY KAYLEE Administration Metoprolol Succinate 25 mg 10/02/22 10:00 10/02/22 09:10 Metoprolol Succinate 25 Mg Xl Tab PO 11/01/22 09:59 25 mg DAILY KAYLEE Administration Multivitamins Therapeutic 1 tab 10/02/22 10:00 10/02/22 09:11 Multivitamins,Therapeutic 1 Tab Tab PO 11/01/22 09:59 1 tab QAM KAYLEE Administration Ondansetron HCl 4 mg 10/02/22 05:34 Ondansetron Hcl 4 Mg/2 Ml Vial IV 11/01/22 05:33 Q6H PRN PRN NAUSEA/VOMITING Pantoprazole Sodium 40 mg 10/02/22 10:00 10/02/22 09:11 Protonix (Pantoprazole) 40 Mg Tablet PO 11/01/22 09:59 40 mg DAILY KAYLEE Administration Thiamine HCl 100 mg 10/02/22 10:00 10/02/22 09:10 Thiamine Hcl 100 Mg Tablet PO 11/01/22 09:59 100 mg DAILY KAYLEE Administration Discontinued Medications Generic Name Dose Route Start Last Admin Trade Name Freq PRN Reason Stop Dose Admin Hydromorphone HCl 1 mg 10/02/22 01:43 10/02/22 02:07 Hydromorphone 1 Mg/1ml Inj 1 Mg/Ml Syringe IV 10/02/22 01:44 1 mg STAT ONE Administration Hydromorphone HCl Confirm 10/02/22 02:00 Hydromorphone 1 Mg/1ml Inj 1 Mg/Ml Syringe Administered 10/02/22 02:01 Dose 1 mg .ROUTE .STK-MED ONE Sodium Chloride 1,000 mls @ 999 mls/hr 10/02/22 01:43 10/02/22 02:07 Sodium Chloride 0.9% 1000 Ml IV 10/02/22 02:43 999 mls/hr .Q1H1M STA Administration Sodium Chloride Confirm 10/02/22 02:00 Sodium Chloride 0.9% 1000 Ml Administered 10/02/22 02:01 Dose 1,000 mls @ ud .ROUTE .STK-MED ONE Sodium Chloride 1,000 mls @ 999 mls/hr 10/02/22 02:59 10/02/22 03:07 Sodium Chloride 0.9% 1000 Ml IV 10/02/22 03:59 999 mls/hr .Q1H1M STA Administration Sodium Chloride Confirm 10/02/22 03:06 Sodium Chloride 0.9% 1000 Ml Administered 10/02/22 03:07 Dose 1,000 mls @ ud .ROUTE .STK-MED ONE Ondansetron HCl 4 mg 10/02/22 01:43 10/02/22 02:07 Ondansetron Hcl 4 Mg/2 Ml Vial IV 10/02/22 01:44 4 mg STAT ONE Administration Ondansetron HCl Confirm 10/02/22 02:00 Ondansetron Hcl 4 Mg/2 Ml Vial Administered 10/02/22 02:01 Dose 4 mg .ROUTE .STK-MED ONE Pantoprazole Sodium 40 mg 10/02/22 01:43 10/02/22 02:06 Pantoprazole 40 Mg Vial IV 10/02/22 01:44 40 mg STAT ONE Administration Pantoprazole Sodium Confirm 10/02/22 02:00 Pantoprazole 40 Mg Vial Administered 10/02/22 02:01 Dose 40 mg IV .STK-MED ONE Pantoprazole Sodium 40 mg 10/02/22 05:34 10/02/22 05:41 Pantoprazole 40 Mg Vial IV 10/02/22 05:35 Not Given STAT ONE Intake & Output (Last 24 hours) 09/30/22 10/01/22 10/02/22 10/03/22 11:59 11:59 11:59 11:59 Weight 89.5 kg Laboratory Results (Last 24 hours) 10/02/22 10/02/22 10/02/22 03:10 02:20 02:03 WBC RBC Hgb Hct MCV MCH MCHC RDW Plt Count MPV Gran % Immature Gran % (Auto) Nucleat RBC Rel Count Eos # (Auto) Immature Gran # (Auto) Absolute Lymphs (auto) Absolute Monos (auto) Absolute Nucleated RBC Lymphocytes % Monocytes % Eosinophils % Basophils % Absolute Granulocytes Basophils # Sodium Potassium Chloride Carbon Dioxide Anion Gap BUN Creatinine Estimated GFR Glucose Lactic Acid 1.0 Calcium Total Bilirubin AST ALT Alkaline Phosphatase Serum Total Protein Albumin Amylase Lipase Urinalys Dipstick Clnc Urine Color Urine Appearance Urine pH Ur Specific Osteen POC Urine Protein Conf Urine Ketones Urine Nitrite Urine Bilirubin Urine Urobilinogen Urine Leukocytes Urine WBC (Auto) Urine RBC (Auto) U Epithel Cells (Auto) Urine Bacteria (Auto) Urine RBC Ur Culture Indicated? Urine Glucose Ethyl Alcohol < 10 Influenza Type A Ag NEGATIVE Influenza Type B Ag NEGATIVE RSV (PCR) NEGATIVE SARS-CoV-2 (PCR) NEGATIVE 10/02/22 10/02/22 10/02/22 02:03 02:03 01:47 WBC 11.3 H RBC 5.32 Hgb 16.3 Hct 48.0 MCV 90.2 MCH 30.6 MCHC 34.0 RDW 12.4 Plt Count 223 MPV 9.4 Gran % 76.5 H Immature Gran % (Auto) 0.3 Nucleat RBC Rel Count 0.0 Eos # (Auto) 0.16 Immature Gran # (Auto) 0.03 Absolute Lymphs (auto) 1.24 Absolute Monos (auto) 1.20 Absolute Nucleated RBC 0.00 Lymphocytes % 11.0 L Monocytes % 10.6 Eosinophils % 1.4 Basophils % 0.2 Absolute Granulocytes 8.63 H Basophils # 0.02 Sodium 127 L Potassium 4.3 Chloride 95 L Carbon Dioxide 25 Anion Gap 12.0 BUN 7 L Creatinine 0.52 L Estimated GFR > 60.0 Glucose 117 H Lactic Acid Calcium 9.1 Total Bilirubin 0.70 AST 35 ALT 31 Alkaline Phosphatase 79 Serum Total Protein 8.1 Albumin 4.4 Amylase 1645 H Lipase 01156 H Urinalys Dipstick Clnc MAIN LAB Urine Color YELLOW Urine Appearance CLEAR Urine pH 6.5 Ur Specific Osteen 1.015 POC Urine Protein Conf NEGATIVE Urine Ketones SMALL-15 A Urine Nitrite NEGATIVE Urine Bilirubin NEGATIVE Urine Urobilinogen 0.2 Urine Leukocytes NEGATIVE Urine WBC (Auto) 0-2 Urine RBC (Auto) NONE U Epithel Cells (Auto) RARE Urine Bacteria (Auto) NONE SEEN Urine RBC NEGATIVE Ur Culture Indicated? NO Urine Glucose NEGATIVE Ethyl Alcohol Influenza Type A Ag Influenza Type B Ag RSV (PCR) SARS-CoV-2 (PCR) Orders (Last 24 hours) Category Date Time Status Bedrest with BRP/BSC TOLERATED Activity 10/02/22 05:34 Active Code Status Order ROUTINE Care 10/02/22 05:34 Active Elevate HOB TOLERATED Care 10/02/22 05:34 Active IV Insertion STAT Care 10/02/22 01:[address] in Observation ROUTINE Care 10/02/22 05:34 Active Weight,Daily 0600 Care 10/02/22 05:34 Active Zoology Teacher/Discharge Plan ROUTINE Cons 10/02/22 09:00 Active NPO except Meds Diet 10/02/22 05:34 Active ABDOMEN AND PELVIS W/0 CONTRAS [CT] Stat Exams 10/02/22 01:43 Completed Ultrasound Gallbladder [GALLBLADDER] [US] Urgent Exams 10/02/22 Ordered AMYLASE Stat Lab 10/02/22 02:03 Completed CBC W DIFF AM.LAB Lab 10/03/22 04:00 Ordered CBC W DIFF Stat Lab 10/02/22 02:03 Completed CMP AM.LAB Lab 10/03/22 04:00 Ordered CMP Stat Lab 10/02/22 02:03 Completed COVID/FLU/RSV Panel Stat Lab 10/02/22 03:10 Completed ETHYL ALCOHOL Stat Lab 10/02/22 02:03 Completed LIPASE Stat Lab 10/02/22 02:03 Completed Lactic Acid Stat Lab 10/02/22 02:20 Completed UA W/RFX CULTURE Stat Lab 10/02/22 01:47 Completed Acetaminophen 325 mg [Tylenol 325 mg] Med 10/02/22 05:34 Active 650 mg PO Q4H PRN PRN Amlodipine Besylate 5 mg [Norvasc 5 mg] Med 10/02/22 10:00 Active 5 mg PO DAILY Clopidogrel Bisulfate [PLAVIX Tablet] Med 10/02/22 10:00 Active 75 mg PO DAILY Folic Acid 1 mg [Folate 1 mg] Med 10/02/22 10:00 Active 1 mg PO DAILY Hydromorphone 1 mg/1Ml Inj [Hydromorphone 1 mg/ml Med 10/02/22 02:00 Discontinued Injection] 1 mg .ROUTE .STK-MED ONE Hydromorphone 1 mg/1Ml Inj [Hydromorphone 1 mg/ml Med 10/02/22 05:34 Active Injection] 1 mg IV Q4H PRN PRN Hydromorphone 1 mg/1Ml Inj [Hydromorphone 1 mg/ml Med 10/02/22 01:43 Discontinued Injection] 1 mg IV STAT ONE Lorazepam 2 mg/1 ml [Ativan 2 MG/1 ML VIAL] Med 10/02/22 05:34 Active 1 mg IV Q2H PRN PRN Losartan Potassium 50 mg [Cozaar 50 MG] Med 10/02/22 10:00 Active 50 mg PO DAILY Metoprolol Succinate 25 mg Xl* [Toprol-Xl 25MG Tablets* Med 10/02/22 10:00 Active ] 25 mg PO DAILY Multivitamins,Therapeutic Tab* [Theragran Multivitamin* Med 10/02/22 10:00 Active ] 1 tab PO QAM NaCl 0.9% 1000 ml [Sodium Chloride 0.9% 1000 ML] 1,000 Med 10/02/22 02:00 Discontinued ml .ROUTE UD NaCl 0.9% 1000 ml [Sodium Chloride 0.9% 1000 ML] 1,000 Med 10/02/22 03:06 Discontinued ml .ROUTE UD NaCl 0.9% 1000 ml [Sodium Chloride 0.9% 1000 ML] 1,000 Med 10/02/22 05:34 Active ml IV 125 mls/hr NaCl 0.9% 1000 ml [Sodium Chloride 0.9% 1000 ML] 1,000 Med 10/02/22 01:43 Discontinued ml IV 999 mls/hr NaCl 0.9% 1000 ml [Sodium Chloride 0.9% 1000 ML] 1,000 Med 10/02/22 02:59 Di scontinued ml IV 999 mls/hr Ondansetron HCl 4 mg/2 ml [Zofran 4 MG/2 ML VIAL] Med 10/02/22 02:00 Discontinued 4 mg .ROUTE .STK-MED ONE Ondansetron HCl 4 mg/2 ml [Zofran 4 MG/2 ML VIAL] Med 10/02/22 05:34 Active 4 mg IV Q6H PRN PRN Ondansetron HCl 4 mg/2 ml [Zofran 4 MG/2 ML VIAL] Med 10/02/22 01:43 Discontinued 4 mg IV STAT ONE PANTOPRAZOLE 40 mg Tablet [Protonix 40MG Tablet] Med 10/02/22 10:00 Active 40 mg PO DAILY Pantoprazole 40 mg [Protonix 40 mg IV] Med 10/02/22 02:00 Discontinued 40 mg IV .STK-MED ONE Pantoprazole 40 mg [Protonix 40 mg IV] Med 10/02/22 01:43 Discontinued 40 mg IV STAT ONE Pantoprazole 40 mg [Protonix 40 mg IV] Med 10/02/22 05:34 Discontinued 40 mg IV STAT ONE Thiamine HCl 100 mg [Vitamin B-1 100 mg] Med 10/02/22 10:00 Active 100 mg PO DAILY Smoking Cessation Education ONCE RT 10/02/22 06:01 Completed Transfer Order Routine Transfer 10/02/22 Completed Code(s): K85.90 - ACUTE PANCREATITIS WITHOUT NECROSIS OR INFECTION, UNSP
--- NOTE | 2022-10-02 15:07 | XRAY ---
Indication: Abdomen pain. Two-dimensional gallbladder sonogram performed. Comparison: None Pancreas obscured due to overlying bowel gas. Gallbladder normally distended with minimal sludge. No gallstones, wall thickening, or pericholecystic fluid. Common bile duct measures 3.6 mm. Diffuse fatty echogenic liver without focal solid/cystic mass or ascites. Right kidney measures 11.4 cm in length and sonographically unremarkable. Impression: Nonvisualization pancreas. Fatty liver. Minimal gallbladder sludge. Remaining gallbladder sonogram is negative.
[2022-10-03] MEDS: Hydromorphone 1 mg/ml Injection IV PRN ×2 (03:22→07:58)
[2022-10-03] MEDS: Sodium Chloride 0.9% 1000 ML 1,000 ML IV SCH (03:23)
[2022-10-03 05:44] LABS: Absolute Neutrophil Ct (ANC) 6.19 x10^3/uL (1.4-6.9); Basophil (Absolute #) 0.04 x10^3/uL (0-0.4); Eosinophil % 2.3 % (0.00-5.0); Eosinophil (Absolute #) 0.21 x10^3/uL (0-0.5); Hematocrit 43.8 % (42-50); Hemoglobin 14.1 g/dL (12.5-18.0); Lymphocytes % 18.8 % (24.0-44.0); Mean Corpuscular Hemoglobin 30.6 pg (26-32); Mean Corpuscular Hgb Concent. 32.2 g/dL (32-36); Monocyte (Absolute #) 0.85 x10^3/uL (0.0-1.3); Monocytes % 9.4 % (0.0-12.0); Neutrophil % 68.7 % (36.0-66.0); Platelet Count 210 x10^3/uL (150-450); Red Blood Count 4.61 x10^6/uL (4.1-5.6); Red Cell Distribution Width 13.1 % (11.5-14.0)
[2022-10-03 06:07] LABS: ALBUMIN 3.7 g/dL (3.5-5.0); ALKALINE PHOSPHATASE 58 U/L (38-126); AMYLASE 360 U/L (30-110); ANION GAP 6.7 MEQ/L (5-15); BLOOD UREA NITROGEN 4 mg/dL (9-20); CHLORIDE 98 mmol/L (98-107); Calcium 8.4 mg/dL (8.4-10.2); Carbon Dioxide 30 mmol/L (22-30); Creatinine 1 0.61 mg/dL (0.66-1.25); EST GLOMERULAR FILTRATION RATE > 60.0 ML/MIN; Glucose 157 mg/dL (74-106); Potassium 3.8 mmol/L (3.5-5.1); SGOT/AST 27 U/L (17-59); SGPT/ALT 21 U/L (0-50); SODIUM 132 mmol/L (137-145); Total Protein 6.9 g/dL (6.3-8.2)
[2022-10-03 06:16] LABS: LIPASE 2766 U/L (23-300)
[2022-10-03 07:26] VITALS: BP 176/102; PULSE 82; O2SAT 95
[2022-10-03] MEDS: Toprol-Xl 25MG Tablets PO SCH (07:58)
[2022-10-03] MEDS: VITAMIN B-1 100 MG PO SCH (07:58)
[2022-10-03] MEDS: PLAVIX Tablet PO SCH (07:58)
[2022-10-03] MEDS: FOLATE 1 MG PO SCH (07:58)
[2022-10-03] MEDS: Cozaar 50 MG PO SCH (07:58)
[2022-10-03] MEDS: THERAGRAN MULTIVITAMIN PO SCH (07:58)
[2022-10-03] MEDS: NORVASC 5 MG PO SCH (07:58)
[2022-10-03] MEDS: Protonix 40MG Tablet PO SCH (07:58)
--- NOTE | 2022-10-03 12:05 | PCM.DS ---
Discharge Summary Date of Admission: 10/02/22 05:29 Admitting Physician: BRISEIDA PIZANO Primary Care Provider: [facility] Allergies Allergies No Known Drug Allergies Allergy (Verified 10/02/22 05:39) Hospital Summary - Hospital Course Hospital Course: Chief Complaint Diagnosis Pancreatitis Allergies Allergy/AdvReac Type Severity Reaction Status Date / Time No Known Drug Allergies Allergy Verified 10/02/22 05:39 Vital Signs (Last 24 hours) Temp Pulse Resp BP Pulse Ox 10/03/22 08:00 19 10/03/22 07:25 98.1 F 82 16 176/102 95 10/03/22 04:00 98.9 F 72 16 170/92 92 L 10/03/22 00:00 15 10/02/22 23:40 98.7 F 74 15 164/89 94 L 10/02/22 20:00 15 10/02/22 19:16 98.9 F 76 16 141/88 94 L 10/02/22 16:00 99.5 F 75 16 130/70 94 L Home Medications Medication Instructions Recorded Confirmed Last Taken Type Amlodipine Besylate 5 mg PO DAILY 10/02/22 10/02/22 10/01/22 10:00 History Losartan Potassium 50 mg 50 mg PO DAILY 10/02/22 10/02/22 10/01/22 10:00 H istory [Cozaar 50 MG] Metoprolol Succinate 25 mg Xl* 25 mg PO DAILY 10/02/22 10/02/22 10/01/22 10:00 History [Toprol-Xl 25MG Tablets] Acetaminophen 325 mg [Tylenol 650 mg PO Q4H PRN PRN tablet 10/03/22 Unknown Rx 325 mg] Current Medications Discontinued Medications Generic Name Dose Route Start Last Admin Trade Name Freq PRN Reason Stop Dose Admin Acetaminophen 650 mg 10/02/22 05:34 Acetaminophen 325 Mg Tablet PO 11/01/22 05:33 Q4H PRN PRN PAIN, FEVER, HEADACHE Amlodipine Besylate 5 mg 10/02/22 10:00 10/03/22 07:58 Amlodipine Besylate 5 Mg Tablet PO 11/01/22 09:59 5 mg DAILY KAYLEE Administration Clopidogrel Bisulfate 75 mg 10/02/22 10:00 10/03/22 07:58 Clopidogrel Bisulfate 75 Mg Tablet PO 11/01/22 09:59 75 mg DAILY KAYLEE Administration Folic Acid 1 mg 10/02/22 10:00 10/03/22 07:58 Folic Acid 1 Mg Tablet PO 11/01/22 09:59 1 mg DAILY KAYLEE Administration Hydromorphone HCl 1 mg 10/02/22 01:43 10/02/22 02:07 Hydromorphone 1 Mg/1ml Inj 1 Mg/Ml Syringe IV 10/02/22 01:44 1 mg STAT ONE Administration Hydromorphone HCl Confirm 10/02/22 02:00 Hydromorphone 1 Mg/1ml Inj 1 Mg/Ml Syringe Administered 10/02/22 02:01 Dose 1 mg .ROUTE .STK-MED ONE Hydromorphone HCl 1 mg 10/02/22 05:34 10/03/22 07:58 Hydromorphone 1 Mg/1ml Inj 1 Mg/Ml Syringe IV 10/07/22 05:33 1 mg Q4H PRN PRN Administration PAIN Sodium Chloride 1,000 mls @ 999 mls/hr 10/02/22 01:43 10/02/22 02:07 Sodium Chloride 0.9% 1000 Ml IV 10/02/22 02:43 999 mls/hr .Q1H1M STA Administration Sodium Chloride Confirm 10/02/22 02:00 Sodium Chloride 0.9% 1000 Ml Administered 10/02/22 02:01 Dose 1,000 mls @ ud .ROUTE .STK-MED ONE Sodium Chloride 1,000 mls @ 999 mls/hr 10/02/22 02:59 10/02/22 03:07 Sodium Chloride 0.9% 1000 Ml IV 10/02/22 03:59 999 mls/hr .Q1H1M STA Administration Sodium Chloride Confirm 10/02/22 03:06 Sodium Chloride 0.9% 1000 Ml Administered 10/02/22 03:07 Dose 1,000 mls @ ud .ROUTE .STK-MED ONE Sodium Chloride 1,000 mls @ 125 mls/hr 10/02/22 05:34 10/03/22 03:23 Sodium Chloride 0.9% 1000 Ml IV 11/01/22 05:33 125 mls/hr .Q8H KAYLEE Administration Lorazepam 1 mg 10/02/22 05:34 Lorazepam 2 Mg/1 Ml 2 Mg Vial IV 11/01/22 05:33 Q2H PRN PRN ANXIETY/AGITATION Losartan Potassium 50 mg 10/02/22 10:00 10/03/22 07:58 Losartan Potassium 50 Mg Tablet PO 11/01/22 09:59 50 mg DAILY KAYLEE Administration Metoprolol Succinate 25 mg 10/02/22 10:00 10/03/22 07:58 Metoprolol Succinate 25 Mg Xl Tab PO 11/01/22 09:59 25 mg DAILY KAYLEE Administration Multivitamins Therapeutic 1 tab 10/02/22 10:00 10/03/22 07:58 Multivitamins,Therapeutic 1 Tab Tab PO 11/01/22 09:59 1 tab QAM KAYLEE Administration Ondansetron HCl 4 mg 10/02/22 01:43 10/02/22 02:07 Ondansetron Hcl 4 Mg/2 Ml Vial IV 10/02/22 01:44 4 mg STAT ONE Administration Ondansetron HCl Confirm 10/02/22 02:00 Ondansetron Hcl 4 Mg/2 Ml Vial Administered 10/02/22 02:01 Dose 4 mg .ROUTE .STK-MED ONE Ondansetron HCl 4 mg 10/02/22 05:34 Ondansetron Hcl 4 Mg/2 Ml Vial IV 11/01/22 05:33 Q6H PRN PRN NAUSEA/VOMITING Pantoprazole Sodium 40 mg 10/02/22 01:43 10/02/22 02:06 Pantoprazole 40 Mg Vial IV 10/02/22 01:44 40 mg STAT ONE Administration Pantoprazole Sodium Confirm 10/02/22 02:00 Pantoprazole 40 Mg Vial Administered 10/02/22 02:01 Dose 40 mg IV .STK-MED ONE Pantoprazole Sodium 40 mg 10/02/22 05:34 10/02/22 05:41 Pantoprazole 40 Mg Vial IV 10/02/22 05:35 Not Given STAT ONE Pantoprazole Sodium 40 mg 10/02/22 10:00 10/03/22 07:58 Protonix (Pantoprazole) 40 Mg Tablet PO 11/01/22 09:59 40 mg DAILY KAYLEE Administration Thiamine HCl 100 mg 10/02/22 10:00 10/03/22 07:58 Thiamine Hcl 100 Mg Tablet PO 11/01/22 09:59 100 mg DAILY KAYLEE Administration Intake & Output (Last 24 hours) 10/01/22 10/02/22 10/03/22 10/04/22 11:59 11:59 11:59 11:59 Intake Total 1840 Balance 1840 Weight 89.5 kg 89.3 kg Laboratory Results (Last 24 hours) 10/03/22 10/03/22 05:00 04:00 WBC 9.0 RBC 4.61 Hgb 14.1 Hct 43.8 MCV 95.0 MCH 30.6 MCHC 32.2 RDW 13.1 Plt Count 210 MPV 10.0 Gran % 68.7 H Immature Gran % (Auto) 0.4 Nucleat RBC Rel Count 0.0 Eos # (Auto) 0.21 Immature Gran # (Auto) 0.04 H Absolute Lymphs (auto) 1.70 Absolute Monos (auto) 0.85 Absolute Nucleated RBC 0.00 Lymphocytes % 18.8 L Monocytes % 9.4 Eosinophils % 2.3 Basophils % 0.4 Absolute Granulocytes 6.19 Basophils # 0.04 Sodium 132 L Potassium 3.8 Chloride 98 Carbon Dioxide 30 Anion Gap 6.7 BUN 4 L Creatinine 0.61 L Estimated GFR > 60.0 Glucose 157 H Calcium 8.4 Total Bilirubin 0.50 AST 27 ALT 21 Alkaline Phosphatase 58 Serum Total Protein 6.9 Albumin 3.7 Amylase 360 H Lipase 2766 H Orders (Last 24 hours) Category Date Time Status Miscellaneous Nursing Order ROUTINE Care 10/02/22 16:35 Completed Low Fat Diet 10/03/22 Breakfast Completed Discharge Routine Discharge 10/03/22 Ordered AMYLASE Routine Lab 10/03/22 05:00 Completed CBC W DIFF AM.LAB Lab 10/03/22 04:00 Completed CMP AM.LAB Lab 10/03/22 05:00 Completed LIPASE Routine Lab 10/03/22 05:00 Completed Patient Care Notes (Last 24 hours) 10/03/22 09:42 Case Management Note by Tash Chandler S/W PATIENT PRIOR TO DC- HE CONTINUED TO DENY ANY NEW NEEDS AT TIME OF DC. HE PLANS TO RETURN HOME TO HIS PLF AT TIME OF DC Initialized on 10/03/22 09:42 - END OF NOTE 10/03/22 08:58 Nursing Note by Aydee Sutton REPORTED AM LABS TO DR. PIZANO. REC. THE FOLLOWING ORDER: DISCHARGE HOME TODAY AND CONTINUE ALL HOME MEDICATIONS. Initialized on 10/03/22 08:58 - END OF NOTE - Vitals & Intake/Output Vital Signs: Vital Signs Temperature 98.1 F 10/03/22 07:25 Pulse Rate 82 10/03/22 07:25 Respiratory Rate 19 10/03/22 08:00 Blood Pressure 176/102 10/03/22 07:25 O2 Sat by Pulse Oximetry 95 10/03/22 07:25 Intake & Output: Intake & Output 10/01/22 10/02/22 10/03/22 10/04/22 11:59 11:59 11:59 11:59 Intake Total 1840 Balance 1840 Weight 89.5 kg 89.3 kg - Lab Result Diagrams: 10/03/22 04:00 10/03/22 05:00 Lab Results-Last 24 Hrs: Lab Results-Last 24 Hours 10/03/22 10/03/22 Range/Units 04:00 05:00 WBC 9.0 (4.0-10.5) x10^3/uL RBC 4.61 (4.1-5.6) x10^6/uL Hgb 14.1 (12.5-18.0) g/dL Hct 43.8 (42-50) % MCV 95.0 (78-100) fL MCH 30.6 (26-32) pg MCHC 32.2 (32-36) g/dL RDW 13.1 (11.5-14.0) % Plt Count 210 (150-450) x10^3/uL MPV 10.0 (7.5-11.0) fL Gran % 68.7 H (36.0-66.0) % Immature Gran % (Auto) 0.4 (0.00-0.4) % Nucleat RBC Rel Count 0.0 (0.00-0.1) % Eos # (Auto) 0.21 (0-0.5) x10^3/uL Immature Gran # (Auto) 0.04 H (0.00-0.03) x10^3u/L Absolute Lymphs (auto) 1.70 (1.0-4.6) x10^3/uL Absolute Monos (auto) 0.85 (0.0-1.3) x10^3/uL Absolute Nucleated RBC 0.00 (0.00-0.01) x10^3u/L Lymphocytes % 18.8 L (24.0-44.0) % Monocytes % 9.4 (0.0-12.0) % Eosinophils % 2.3 (0.00-5.0) % Basophils % 0.4 (0.0-0.4) % Absolute Granulocytes 6.19 (1.4-6.9) x10^3/uL Basophils # 0.04 (0-0.4) x10^3/uL Sodium 132 L (137-145) mmol/L Potassium 3.8 (3.5-5.1) mmol/L Chloride 98 (98-107) mmol/L Carbon Dioxide 30 (22-30) mmol/L Anion Gap 6.7 (5-15) MEQ/L BUN 4 L (9-20) mg/dL Creatinine 0.61 L (0.66-1.25) mg/dL Estimated GFR > 60.0 ML/MIN Glucose 157 H (74-106) mg/dL Calcium 8.4 (8.4-10.2) mg/dL Total Bilirubin 0.50 (0.2-1.3) mg/dL AST 27 (17-59) U/L ALT 21 (0-50) U/L Alkaline Phosphatase 58 (38-126) U/L Serum Total Protein 6.9 (6.3-8.2) g/dL Albumin 3.7 (3.5-5.0) g/dL Amylase 360 H (30-110) U/L Lipase 2766 H (23-300) U/L - Radiology Exams Ordered Rad Exams-Entire Visit: Radiology Procedures Category Date Time Status ABDOMEN AND PELVIS W/0 CONTRAS [CT] Stat Exams 10/02/22 01:43 Completed Ultrasound Gallbladder [GALLBLADDER] [US] Urgent Exams 10/02/22 Completed - Procedures and Test Procedures and Tests throughout Hospitalization: Therapy Orders & Screens 10/02/22 06:01 Smoking Cessation Education ONCE Comment: Diagnosis: Pancreatitis Smoking Status: Current every day smoker How long have you smoked: 30 years Have you smoked in the past 12 months: Yes Approximately how many cigarettes per day: 1 PPD Do you dip or chew tobacco: No Discharge Exam General Appearance: no apparent distress, alert Neurologic Exam: alert, oriented x 3, cooperative, normal mood/affect, nml cerebellar function, sensation nml, No motor deficits Eye Exam: PERRL, EOMI, eyes nml inspection Ears, Nose, Throat Exam: normal ENT inspection, pharynx normal, moist mucous me mbranes Neck Exam: normal inspection, non-tender, supple, full range of motion Respiratory Exam: normal breath sounds, lungs clear, No respiratory distress Cardiovascular Exam: regular rate/rhythm, normal heart sounds Gastrointestinal/Abdomen Exam: soft, No tenderness, No mass Male Genitalia Exam: deferred Rectal Exam: deferred Back Exam: normal inspection, normal range of motion, No CVA tenderness, No vertebral tenderness Extremity Exam: normal inspection, normal range of motion Skin Exam: normal color, warm, dry Final Diagnosis/Problem List - Final Discharge Diagnosis/Problem (1) Acute pancreatitis Status: Resolved Priority: High Code(s): K85.90 - ACUTE PANCREATITIS WITHOUT NECROSIS OR INFECTION, UNSP - Discharge Discharge Date: 10/03/22 Disposition: Home, Self-Care Condition: Stable Prescriptions: New Acetaminophen 325 mg [Tylenol 325 mg] 650 mg PO Q4H PRN PRN tablet PRN Reason: Pain, Fever, Headache Continue Omeprazole Magnesium [Prilosec Otc] 20 mg PO DAILY Clopidogrel Bisulfate [Plavix] 75 mg PO DAILY Amlodipine Besylate 5 mg PO DAILY Metoprolol Succinate 25 mg Xl* [Toprol-Xl 25MG Tablets] 25 mg PO DAILY Losartan Potassium 50 mg [Cozaar 50 MG] 50 mg PO DAILY Instructions: Pancreatitis (DC) Additional Instructions: Resume all home meds as prescribed. Advance diet as tolerated. [facility] Follow up with: [facility] [Primary Care Provider] - Forms: Discharge Instructions, Patient Portal Information
== END 2022-10-03 09:12 | disposition home or self-care (01) ==
LOC: ED 00:18 → MED SURG 05:29
PROVIDERS: ADMIT General Practice; ATTEND General Practice
DX: K85.90 Acute pancreatitis without necrosis or infection, unspecified (principal); I10 Essential (primary) hypertension; K21.9 Gastro-esophageal reflux disease without esophagitis; I25.10 Atherosclerotic heart disease of native coronary artery without angina pectoris; Z79.899 Other long term (current) drug therapy; Z72.0 Tobacco use; Z20.828 Contact with and (suspected) exposure to other viral communicable diseases
CPT/HCPCS: 0241U; 36000; 36415; 74176; 76705; 80053; 81015; 82150; 83605; 83690; 85025; 93268; 96374; 96375; 99285; G0378; G0480; 80307; J1170; J2405; A9270-GY

== ENCOUNTER 2023-02-18 12:46 | Emergency (ER) | payer OTHER, BC ==
[2023-02-18 12:59] VITALS: BP 170/104; O2SAT 96
--- NOTE | 2023-02-18 13:19 | ERPHSYRPT ---
- History of Present Illness Time Seen by Provider: 02/18/23 13:19 Historian: patient, family Exam Limitations: no limitations Patient Subjective Stated Complaint: here for abd pain started this morning, worse to right side with some nausea, Triage Nursing Assessment: pt alert, walked in, resp easy, skin w/d/p. abd soft Physician History: Hx occasional pancreatitis. Having a flare-up since last night. Says no cause k nown. Alcohol use is minor, no gallstone hx, does not think TG are high. Pain is moderate, nausea is mininal. Timing/Duration: yesterday Activities at Onset: none Quality: cramping Abdominal Pain Onset Location: epigastric Pain Radiation: no radiation Severity of Pain-Max: moderate Severity of Pain-Current: mild Modifying Factors: Improves With: nothing Associated Symptoms: nausea, No chest pain, No shortness of breath Previous symptoms: same symptoms as today, no recent treatment Allergies/Adverse Reactions: No Known Drug Allergies Allergy (Verified 02/18/23 12:49) Home Medications: Clopidogrel Bisulfate [Plavix] 75 mg PO DAILY 04/15/21 [History] Omeprazole Magnesium [Prilosec Otc] 20 mg PO DAILY 04/15/21 [History] Amlodipine Besylate 5 mg PO DAILY 10/02/22 [History] Losartan Potassium 50 mg [Cozaar 50 MG] 50 mg PO DAILY 10/02/22 [History] Metoprolol Succinate 25 mg Xl* [Toprol-Xl 25MG Tablets] 25 mg PO DAILY 10/02/22 [History] Hx Tetanus, Diphtheria Vaccination/Date Given: No Hx Influenza Vaccination/Date Given: No Hx Pneumococcal Vaccination/Date Given: No Immunizations Up to Date: Yes Travel Risk - International Travel Have you traveled outside of the country in past 3 weeks: No - Coronavirus Screening Are you exhibiting any of the following symptoms?: No Close contact with a COVID-19 positive Pt in past 14-21 Days: No - Vaccine Status Have you recieved a Covid-19 vaccination: No - Review of Systems Constitutional: No Symptoms Eyes: No Symptoms Ears, Nose, & Throat: No Symptoms, Throat Swelling Cardiac: No Symptoms Abdominal/Gastrointestinal: No Symptoms Genitourinary Symptoms: No Symptoms Musculoskeletal: No Symptoms Skin: No Symptoms Neurological: No Symptoms Psychological: No Symptoms Endocrine: No Symptoms Hematologic/Lymphatic: No Symptoms Immunological/Allergic: No Symptoms All Other Systems: Reviewed and Negative - Past Medical History Pertinent Past Medical History: Yes Neurological History: TIA ENT History: No Pertinent History Cardiac History: Coronary Artery Disease, High Cholesterol, Hypertension Respiratory History: Asthma, Pulmonary Embolism Endocrine Medical History: No Pertinent History Musculoskeletal History: Arthritis GI Medical History: GERD, Pancreatitis History: No Pertinent History Psycho-Social History: No Pertinent History Male Reproductive Disorders: No Pertinent History Other Medical History: PFO - Past Surgical History Past Surgical History: No Neuro Surgical History: No Pertinent History Cardiac: No Pertinent History Respiratory: No Pertinent History Gastrointestinal: No Pertinent History Genitourinary: No Pertinent History Musculoskeletal: No Pertinent History Male Surgical History: Vasectomy - Social History Smoking Status: Current every day smoker How long have you smoked: 30 years Exposure to second hand smoke: Yes Drug Use: none Patient Lives Alone: Yes Significant Family History: no pertinent family hx - Nursing Vital Signs Nursing Vital Signs: Initial Vital Signs Pulse Rate 80 02/18/23 12:59 Respiratory Rate 18 02/18/23 12:59 Blood Pressure 170/104 02/18/23 12:59 O2 Sat by Pulse Oximetry 96 02/18/23 12:59 Pain Scale Pain Intensity 5 - Physical Exam General Appearance: no apparent distress Eye Exam: PERRL/EOMI Ears, Nose, Throat Exam: normal ENT inspection Neck Exam: normal inspection Respiratory Exam: normal breath sounds, lungs clear Cardiovascular Exam: regular rate/rhythm, normal heart sounds Gastrointestinal/Abdomen Exam: soft, normal bowel sounds, tenderness (epigastrium, mild), No distention, No mass, No guarding Rectal Exam: deferred Back Exam: normal inspection Extremity Exam: normal inspection, normal range of motion Neurologic Exam: alert, oriented x 3, cooperative Skin Exam: normal color SpO2 Interpretation: normal SpO2: 96 O2 Delivery: Room Air - Course Nursing assessment & vital signs reviewed: Yes - CT Exams Abdomen/Pelvis CT Interpretation: Tele-radiologist Report, Other (pancreatitis, no abscess or necrosis) Ordered Tests: Active Orders 24 hr Category Date Time Status ABDOMEN AND PELVIS W/0 CONTRAS [CT] Stat Exams 02/18/23 13:30 Completed AMYLASE Stat Lab 02/18/23 13:50 Completed CBC W DIFF Stat Lab 02/18/23 13:50 Completed CMP Stat Lab 02/18/23 13:50 Completed LIPASE Stat Lab 02/18/23 13:50 Completed UA W/RFX UR CULTURE Stat Lab 02/18/23 13:34 Completed Lab/Rad Data: Laboratory Result Diagrams 02/18/23 13:50 02/18/23 13:50 Laboratory Results 02/18/23 02/18/23 02/18/23 Range/Units 13:50 13:50 13:34 WBC 12.2 H (4.0-10.5) x10^3/uL RBC 5.28 (4.1-5.6) x10^6/uL Hgb 15.4 (12.5-18.0) g/dL Hct 46.5 (42-50) % MCV 88.1 (78-100) fL MCH 29.2 (26-32) pg MCHC 33.1 (32-36) g/dL RDW 13.3 (11.5-14.0) % Plt Count 282 (150-450) x10^3/uL MPV 9.8 (7.5-11.0) fL Gran % 77.3 H (36.0-66.0) % Immature Gran % (Auto) 0.5 H (0.00-0.4) % Nucleat RBC Rel Count 0.0 (0.00-0.1) % Eos # (Auto) 0.23 (0-0.5) x10^3/uL Immature Gran # (Auto) 0.06 H (0.00-0.03) x10^3u/L Absolute Lymphs (auto) 1.43 (1.0-4.6) x10^3/uL Absolute Monos (auto) 0.97 (0.0-1.3) x10^3/uL Absolute Nucleated RBC 0.00 (0.00-0.01) x10^3u/L Lymphocytes % 11.8 L (24.0-44.0) % Monocytes % 8.0 (0.0-12.0) % Eosinophils % 1.9 (0.00-5.0) % Basophils % 0.5 (0.0-0.4) % Absolute Granulocytes 9.40 H (1.4-6.9) x10^3/uL Basophils # 0.06 (0-0.4) x10^3/uL Sodium 134 L (137-145) mmol/L Potassium 4.6 (3.5-5.1) mmol/L Chloride 96 L (98-107) mmol/L Carbon Dioxide 28 (22-30) mmol/L Anion Gap 14.1 (5-15) MEQ/L BUN 6 L (9-20) mg/dL Creatinine 0.51 L (0.66-1.25) mg/dL Estimated GFR > 60.0 ML/MIN Glucose 103 (74-106) mg/dL Calcium 9.2 (8.4-10.2) mg/dL Total Bilirubin 0.60 (0.2-1.3) mg/dL AST 50 (17-59) U/L ALT 35 (0-50) U/L Alkaline Phosphatase 89 (38-126) U/L Serum Total Protein 7.9 (6.3-8.2) g/dL Albumin 4.3 (3.5-5.0) g/dL Amylase 911 H (30-110) U/L Lipase 46960 H (23-300) U/L Urine Color Yellow (Yellow) Urine Appearance Clear (Clear) Urine pH 7.5 (4.6-8.0) Ur Specific [place] 1.015 (1.005-1.030) Urine Protein Negative (Negative) Urine Glucose (UA) Negative (Negative) mg/dL Urine Ketones Trace A (Negative) Urine Blood Negative (Negative) Urine Nitrite Negative (Negative) Urine Bilirubin Negative (Negative) Urine Urobilinogen 0.2 (0.2) mg/dL Ur Leukocyte Esterase Negative (Negative) U Hyaline Cast (Auto) NONE SEEN (0-2) /LPF Urine Microscopic RBC 0-2 (0-5) /HPF Urine Microscopic WBC 0-2 (0-5) /HPF Ur Epithelial Cells None Seen (None Seen) /HPF Urine Bacteria None Seen (None Seen) /HPF Urine Culture Reflexed NO (NO) - Progress Progress: improved Progress Note: 02/18/23 16:07 Does NOT want admitted, just Rx for some pain and nausea med, advised clear liquids only, see PCP tomorrow. Counseled pt/family regarding: lab results, diagnosis, need for follow-up, rad results Medical Desision Making - Independent Historian Additional History obtained from: Spouse - Diagnostic Testing Diagnostic test were ordered, analyzed, and reviewed by me: Yes Radiological Interpretation: Teleradiologist Report - Risk of complications Low Risk: Low risk of morbidity from additional dx testing or treatment The pt has a mod risk of morbidity or mortality based on: Need for prescription drug management - Departure Departure Disposition: Home Clinical Impression: Pancreatitis, chronic Qualifiers: Pancreatitis type: idiopathic Qualified Code(s): K86.1 - Other chronic pancreatitis Clinical Impression: (Ruled Out): Pancreatitis due to biliary obstruction Condition: Stable Critical Care Time: No Referrals: [facility] [Primary Care Provider] - Follow up/PCP as directed Instructions: Chronic Pancreatitis (DC) Additional Instructions: Clear liquids only until better. Recheck with PCP tomorrow. Prescriptions: Hydrocodone/Acetaminophen [Hydrocodone-Acetamin 7.5-325] 1 each PO Q6H PRN PRN 3 Days #12 tablet MDD 4 PRN Reason: Pain Promethazine HCl 25 mg [Phenergan 25 mg] 25 mg PO Q6H PRN PRN #20 tablet PRN Reason: Nausea/Vomiting
[2023-02-18 13:51] VITALS: PULSE 90
[2023-02-18 13:51] LABS: BASOPHIL % 0.5 % (0.0-0.4); Basophil (Absolute #) 0.06 x10^3/uL (0-0.4); Eosinophil % 1.9 % (0.00-5.0); Eosinophil (Absolute #) 0.23 x10^3/uL (0-0.5); Hematocrit 46.5 % (42-50); Hemoglobin 15.4 g/dL (12.5-18.0); IMMATURE GRAN # 0.06 x10^3u/L (0.00-0.03); IMMATURE GRAN % 0.5 % (0.00-0.4); Lymphocyte (Absolute #) 1.43 x10^3/uL (1.0-4.6); Lymphocytes % 11.8 % (24.0-44.0); Mean Cell Volume 88.1 fL (78-100); Mean Corpuscular Hemoglobin 29.2 pg (26-32); Mean Corpuscular Hgb Concent. 33.1 g/dL (32-36); Mean Platelet Volume 9.8 fL (7.5-11.0); Monocyte (Absolute #) 0.97 x10^3/uL (0.0-1.3); Neutrophil % 77.3 % (36.0-66.0); Platelet Count 282 x10^3/uL (150-450); Red Blood Count 5.28 x10^6/uL (4.1-5.6); Red Cell Distribution Width 13.3 % (11.5-14.0); White Blood Count 12.2 x10^3/uL (4.0-10.5)
[2023-02-18 14:06] LABS: Appearance Clear (Clear); Bacteria None Seen /HPF (None Seen); Bilirubin Negative (Negative); Blood Negative (Negative); Epithelial Cells None Seen /HPF (None Seen); Glucose, Urine Negative (Negative); Hyaline Casts NONE SEEN /LPF (0-2); Ketones Trace (Negative); Leukocyte Esterase Negative (Negative); Nitrite Negative (Negative); Ph 7.5 (4.6-8.0); Protein,Urine Dip Negative (Negative); RBC 0-2 /HPF (0-5); Specific Gravity 1.015 (1.005-1.030); Urobilinogen 0.2 mg/dL (0.2); WBC 0-2 /HPF (0-5)
[2023-02-18 14:07] LABS: ALBUMIN 4.3 g/dL (3.5-5.0); ALKALINE PHOSPHATASE 89 U/L (38-126); AMYLASE 911 U/L (30-110); ANION GAP 14.1 MEQ/L (5-15); BLOOD UREA NITROGEN 6 mg/dL (9-20); CHLORIDE 96 mmol/L (98-107); Calcium 9.2 mg/dL (8.4-10.2); Carbon Dioxide 28 mmol/L (22-30); Creatinine 1 0.51 mg/dL (0.66-1.25); EST GLOMERULAR FILTRATION RATE > 60.0 ML/MIN; Glucose 103 mg/dL (74-106); Potassium 4.6 mmol/L (3.5-5.1); SGOT/AST 50 U/L (17-59); SGPT/ALT 35 U/L (0-50); SODIUM 134 mmol/L (137-145); Total Protein 7.9 g/dL (6.3-8.2)
[2023-02-18 14:10] LABS: ADD URINE CULTURE? NO (NO)
[2023-02-18 14:24] LABS: LIPASE 11966 U/L (23-300)
--- NOTE | 2023-02-18 15:39 | XRAY ---
CLINICAL HISTORY:Pain, nausea, GERD and history of pancreatitis. COMPARISON:None; TECHNIQUES:Multiplanar, non-contrast CT abdomen and pelvis performed. CTDI 7.89, DLP 407.69 mGy. FINDINGS: Bilateral perinephric fat stranding noted. The urinary bladder is not optimally distended however the wall is mildly thickened. Would recommend a workup to exclude UTI. Both kidneys are otherwise normal in size and shape. No stone, cyst or hydronephrosis seen in both kidneys. Both ureters are normal in calibre with no stones seen. No stone was seen in the urinary bladder. Incidentally seen are few areas of mural calcification in aorta, renal and viscera vessels, however within the limitations of the unenhanced study, these do not appear significant. The appendix is separately visualized appears unremarkable. Few colonic diverticuli noted, no diverticulitis. In region of head of pancreas ill defined soft tissue density and fat stranding is noted. This is a non-contrast study and further evaluation not possible, amylase, lipase correlation and if indicated post-contrast study advised. No pancreatic ductal dilatation noted. Fatty infiltration of liver. Otherwise, within the limitations of unenhanced study gall bladder, both adrenal glands, spleen and bowel loops are unremarkable. No enlarged lymph nodes, abdominal wall hernias, intra-abdominal collections or pneumoperitoneum seen. Degenerative changes seen in spine. Lower chest. lung bases clear, no pleural effusion, no pericardial effusion. IMPRESSION: Based on renal changes and indeterminate urinary bladder changes - work up advised to exclude UTI. Fatty liver disease. Colonic uncomplicated diverticulosis. On an unenhanced study, ill-defined soft tissue density noted in region of head of the pancreas and fat appears negar/stranding. Further evaluation not possible, amylase, lipase correlation, and if indicated post-contrast study advised. Electronically Signed by: Keshia Conklin MD. ( 02/18/2023 14:19:03 SNOUT PULLER)
== END 2023-02-18 16:35 | disposition home or self-care (01) ==
LOC: ED 12:46
DX: K86.1 Other chronic pancreatitis (principal); E78.5 Hyperlipidemia, unspecified; I10 Essential (primary) hypertension; Z79.02 Long term (current) use of antithrombotics/antiplatelets; Z79.891 Long term (current) use of opiate analgesic; Z79.899 Other long term (current) drug therapy; Z28.310 Unvaccinated for COVID-19; Z72.0 Tobacco use
CPT/HCPCS: 36000; 36415; 74176; 80053; 81001; 82150; 83690; 85025; 99283

== ENCOUNTER 2023-05-24 08:56 | Inpatient (IN) | payer OTHER, BC ==
[2023-05-24] MEDS ORDERED: Zofran 4 MG/2 ML VIAL IV ONE (09:12)
[2023-05-24] MEDS ORDERED: Hydromorphone 1 mg/ml Injection IV ONE ×2 (09:12→10:50)
[2023-05-24] MEDS ORDERED: Sodium Chloride 0.9% 1000 ML 1,000 ML IV STA ×2 (09:12→10:16)
[2023-05-24] MEDS ORDERED: PROTONIX 40 MG IV IV ONE ×2 (09:12→09:21)
[2023-05-24] MEDS ORDERED: Hydromorphone 1 mg/ml Injection ONE ×2 (09:21→11:12)
[2023-05-24] MEDS ORDERED: Zofran 4 MG/2 ML VIAL ONE (09:21)
[2023-05-24] MEDS ORDERED: Sodium Chloride 0.9% 1000 ML 1,000 ML ONE ×2 (09:22→10:24)
--- NOTE | 2023-05-24 09:28 | ERPHSYRPT ---
- History of Present Illness Time Seen by Provider: 05/24/23 09:05 Historian: patient Exam Limitations: no limitations (2) Patient Subjective Stated Complaint: Pt states "I have pancreatitis but this is different. I have horrible pain all accross my belly." Triage Nursing Assessment: Pt presented alert and oriented X3, skin pwd. Pt ambulates with an upright steady gait, able to speak in clear full sentences. Pt resting comfortably on the bed. Physician History: This is a 53-year-old white male patient who is a former daily alcohol consumer and has a history of recurrent pancreatitis. Patient continues to smoke c igarettes daily. He presents with initially, 2 days ago, having back pain which signals to him he probably has pancreatitis flareup. However, in the last couple days he has had a different pain pattern with significant bandlike anterior abdominal pain. He typically has nausea with pancreatitis. However this time, in the last 2 days' he has had episodes of vomiting. This is unusual for him. Patient denies chest pain. He denies shortness of breath. He has a history of gastroesophageal reflux disease, hypertension, pulmonary embolism on Plavix, coronary disease, hyperlipidemia and asthma. Timing/Duration: day(s) (2), worse Quality: aching, stabbing Abdominal Pain Onset Location: RUQ, LUQ, periumbilical Pain Radiation: back Severity of Pain-Max: moderate Severity of Pain-Current: moderate Modifying Factors: Improves With: vomiting Associated Symptoms: back, loss of appetite, nausea, vomiting, No chest pain, No shortness of breath Previous symptoms: same symptoms as today, no recent treatment Allergies/Adverse Reactions: No Known Drug Allergies Allergy (Verified 02/18/23 12:49) Home Medications: Clopidogrel Bisulfate [Plavix] 75 mg PO DAILY 04/15/21 [History] Omeprazole Magnesium [Prilosec Otc] 20 mg PO DAILY 04/15/21 [History] Amlodipine Besylate 5 mg PO DAILY 10/02/22 [History] Losartan Potassium 50 mg [Cozaar 50 MG] 50 mg PO DAILY 10/02/22 [History] Metoprolol Succinate 25 mg Xl* [Toprol-Xl 25MG Tablets] 25 mg PO DAILY 10/02/22 [History] Hx Tetanus, Diphtheria Vaccination/Date Given: No Hx Influenza Vaccination/Date Given: No Hx Pneumococcal Vaccination/Date Given: No Immunizations Up to Date: No Travel Risk - International Travel Have you traveled outside of the country in past 3 weeks: No - Coronavirus Screening Are you exhibiting any of the following symptoms?: No Close contact with a COVID-19 positive Pt in past 14-21 Days: No - Vaccine Status Have you recieved a Covid-19 vaccination: No - Review of Systems Constitutional: No Symptoms Eyes: No Symptoms Ears, Nose, & Throat: No Symptoms Respiratory: No Symptoms Cardiac: No Symptoms Abdominal/Gastrointestinal: Abdominal Pain, Nausea, Vomiting, Appetite Changes, No Diarrhea, No Constipation Genitourinary Symptoms: No Symptoms Musculoskeletal: No Symptoms Skin: No Symptoms Neurological: No Symptoms Psychological: No Symptoms Endocrine: No Symptoms Hematologic/Lymphatic: No Symptoms Immunological/Allergic: No Symptoms All Other Systems: Reviewed and Negative - Past Medical History Pertinent Past Medical History: Yes Neurological History: TIA ENT History: No Pertinent History Cardiac History: Coronary Artery Disease, High Cholesterol, Hypertension Respiratory History: Asthma, Pulmonary Embolism Endocrine Medical History: No Pertinent History Musculoskeletal History: Arthritis GI Medical History: GERD, Pancreatitis History: No Pertinent History Psycho-Social History: No Pertinent History Male Reproductive Disorders: No Pertinent History Other Medical History: PFO - Past Surgical History Past Surgical History: Yes Neuro Surgical History: No Pertinent History Cardiac: No Pertinent History Respiratory: No Pertinent History Gastrointestinal: No Pertinent History Genitourinary: No Pertinent History Musculoskeletal: No Pertinent History Male Surgical History: Vasectomy - Social History Smoking Status: Current every day smoker How long have you smoked: 30 years Exposure to second hand smoke: Yes Drug Use: none Patient Lives Alone: Yes Significant Family History: no pertinent family hx - Nursing Vital Signs Nursing Vital Signs: Initial Vital Signs Temperature 96.6 F 05/24/23 08:59 Pulse Rate 79 05/24/23 08:59 Respiratory Rate 20 05/24/23 08:59 Blood Pressure 168/110 05/24/23 08:59 O2 Sat by Pulse Oximetry 96 05/24/23 08:59 Pain Scale Pain Intensity 4 - Physical Exam General Appearance: no apparent distress, alert, anxiety Eye Exam: PERRL/EOMI, eyes nml inspection Ears, Nose, Throat Exam: normal ENT inspection, moist mucous membranes Neck Exam: normal inspection, non-tender, supple, full range of motion Respiratory Exam: normal breath sounds, lungs clear, airway intact, No chest tenderness, No respiratory distress Cardiovascular Exam: regular rate/rhythm, normal heart sounds, normal peripheral pulses Gastrointestinal/Abdomen Exam: soft, normal bowel sounds, tenderness (Anterior abdomen mid), guarding, No rebound Rectal Exam: not done Back Exam: normal inspection, normal range of motion, No CVA tenderness, No vertebral tenderness Extremity Exam: normal inspection, normal range of motion, pelvis stable Neurologic Exam: alert, oriented x 3, cooperative, 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 II-XII nml as tested, normal mood/affect, nml cerebellar function, nml station & gait, sensation nml Skin Exam: normal color, warm, dry Lymphatic Exam: No adenopathy SpO2 Interpretation: normal SpO2: 96 O2 Delivery: Room Air - Course Nursing assessment & vital signs reviewed: Yes Ordered Tests: Active Orders 24 hr Category Date Time Status IV Insertion STAT Care 05/24/23 09:12 Active ABDOMEN AND PELVIS W/0 CONTRAS [CT] Stat Exams 05/24/23 09:12 Completed AMYLASE Stat Lab 05/24/23 09:50 Completed CBC W DIFF Stat Lab 05/24/23 09:50 Completed CMP Stat Lab 05/24/23 09:50 Completed LIPASE Stat Lab 05/24/23 09:50 Completed Lactic Acid Stat Lab 05/24/23 09:54 Completed UA W/RFX UR CULTURE Stat Lab 05/24/23 09:50 Completed Transfer Order Routine Transfer 05/24/23 Ordered Medication Summary Generic Name Dose Route Start Last Admin Trade Name Freq PRN Reason Stop Dose Admin Sodium Chloride 1,000 mls @ 999 mls/hr 05/24/23 10:16 05/24/23 10:26 Sodium Chloride 0.9% 1000 Ml IV 05/24/23 11:16 999 mls/hr .Q1H1M STA Administration Discontinued Medications Generic Name Dose Route Start Last Admin Trade Name Freq PRN Reason Stop Dose Admin Hydromorphone HCl 1 mg 05/24/23 09:12 05/24/23 09:25 Hydromorphone 1 Mg/1ml Inj IV 05/24/23 09:13 1 mg STAT ONE Administration Hydromorphone HCl Confirm 05/24/23 09:21 Hydromorphone 1 Mg/1ml Inj Administered 05/24/23 09:22 Dose 1 mg .ROUTE .STK-MED ONE Hydromorphone HCl 1 mg 05/24/23 10:50 Hydromorphone 1 Mg/1ml Inj IV 05/24/23 10:51 STAT ONE Sodium Chloride 1,000 mls @ 999 mls/hr 05/24/23 09:12 05/24/23 10:38 Sodium Chloride 0.9% 1000 Ml IV 05/24/23 10:12 Infused .Q1H1M STA Infusion Sodium Chloride Confirm 05/24/23 09:22 Sodium Chloride 0.9% 1000 Ml Administered 05/24/23 09:23 Dose 1,000 mls @ ud .ROUTE .STK-MED ONE Sodium Chloride Confirm 05/24/23 10:24 Sodium Chloride 0.9% 1000 Ml Administered 05/24/23 10:25 Dose 1,000 mls @ ud .ROUTE .STK-MED ONE Ondansetron HCl 4 mg 05/24/23 09:12 05/24/23 09:27 Ondansetron Hcl 4 Mg/2 Ml Vial IV 05/24/23 09:13 4 mg STAT ONE Administration Ondansetron HCl Confirm 05/24/23 09:21 Ondansetron Hcl 4 Mg/2 Ml Vial Administered 05/24/23 09:22 Dose 4 mg .ROUTE .STK-MED ONE Pantoprazole Sodium 40 mg 05/24/23 09:12 05/24/23 09:27 Pantoprazole 40 Mg Vial IV 05/24/23 09:13 40 mg STAT ONE Administration Pantoprazole Sodium Confirm 05/24/23 09:21 Pantoprazole 40 Mg Vial Administered 05/24/23 09:22 Dose 40 mg IV .STK-MED ONE Lab/Rad Data: Laboratory Result Diagrams 05/24/23 09:50 05/24/23 09:50 Laboratory Results 05/24/23 05/24/23 05/24/23 Range/Units 09:54 09:50 09:50 WBC 12.0 H (4.0-10.5) x10^3/uL RBC 5.38 (4.1-5.6) x10^6/uL Hgb 15.4 (12.5-18.0) g/dL Hct 47.3 (42-50) % MCV 87.9 (78-100) fL MCH 28.6 (26-32) pg MCHC 32.6 (32-36) g/dL RDW 13.8 (11.5-14.0) % Plt Count 272 (150-450) x10^3/uL MPV 9.4 (7.5-11.0) fL Gran % 79.2 H (36.0-66.0) % Immature Gran % (Auto) 0.3 (0.00-0.4) % Nucleat RBC Rel Count 0.0 (0.00-0.1) % Eos # (Auto) 0.19 (0-0.5) x10^3/uL Immature Gran # (Auto) 0.04 H (0.00-0.03) x10^3u/L Absolute Lymphs (auto) 1.32 (1.0-4.6) x10^3/uL Absolute Monos (auto) 0.92 (0.0-1.3) x10^3/uL Absolute Nucleated RBC 0.00 (0.00-0.01) x10^3u/L Lymphocytes % 11.0 L (24.0-44.0) % Monocytes % 7.6 (0.0-12.0) % Eosinophils % 1.6 (0.00-5.0) % Basophils % 0.3 (0.0-0.4) % Absolute Granulocytes 9.53 H (1.4-6.9) x10^3/uL Basophils # 0.04 (0-0.4) x10^3/uL Sodium 130 L (137-145) mmol/L Potassium 3.8 (3.5-5.1) mmol/L Chloride 93 L (98-107) mmol/L Carbon Dioxide 27 (22-30) mmol/L Anion Gap 13.9 (5-15) MEQ/L BUN 6 L (9-20) mg/dL Creatinine 0.57 L (0.66-1.25) mg/dL Estimated GFR > 60.0 ML/MIN Glucose 125 H (74-106) mg/dL Lactic Acid 1.4 (0.4-2.0) Calcium 9.1 (8.4-10.2) mg/dL Total Bilirubin 0.70 (0.2-1.3) mg/dL AST 29 (17-59) U/L ALT 24 (0-50) U/L Alkaline Phosphatase 79 (38-126) U/L Serum Total Protein 7.8 (6.3-8.2) g/dL Albumin 4.4 (3.5-5.0) g/dL Amylase 1634 H (30-110) U/L Lipase > 2000 H (23-300) U/L Urine Color (Yellow) Urine Appearance (Clear) Urine pH (4.6-8.0) Ur Specific [place] (1.005-1.030) Urine Protein (Negative) Urine Glucose (UA) (Negative) mg/dL Urine Ketones (Negative) Urine Blood (Negative) Urine Nitrite (Negative) Urine Bilirubin (Negative) Urine Urobilinogen (0.2) mg/dL Ur Leukocyte Esterase (Negative) U Hyaline Cast (Auto) (0-2) /LPF Urine Microscopic RBC (0-5) /HPF Urine Microscopic WBC (0-5) /HPF Ur Epithelial Cells (None Seen) /HPF Urine Bacteria (None Seen) /HPF Urine Culture Reflexed (NO) 05/24/23 Range/Units 09:50 WBC (4.0-10.5) x10^3/uL RBC (4.1-5.6) x10^6/uL Hgb (12.5-18.0) g/dL Hct (42-50) % MCV (78-100) fL MCH (26-32) pg MCHC (32-36) g/dL RDW (11.5-14.0) % Plt Count (150-450) x10^3/uL MPV (7.5-11.0) fL Gran % (36.0-66.0) % Immature Gran % (Auto) (0.00-0.4) % Nucleat RBC Rel Count (0.00-0.1) % Eos # (Auto) (0-0.5) x10^3/uL Immature Gran # (Auto) (0.00-0.03) x10^3u/L Absolute Lymphs (auto) (1.0-4.6) x10^3/uL Absolute Monos (auto) (0.0-1.3) x10^3/uL Absolute Nucleated RBC (0.00-0.01) x10^3u/L Lymphocytes % (24.0-44.0) % Monocytes % (0.0-12.0) % Eosinophils % (0.00-5.0) % Basophils % (0.0-0.4) % Absolute Granulocytes (1.4-6.9) x10^3/uL Basophils # (0-0.4) x10^3/uL Sodium (137-145) mmol/L Potassium (3.5-5.1) mmol/L Chloride (98-107) mmol/L Carbon Dioxide (22-30) mmol/L Anion Gap (5-15) MEQ/L BUN (9-20) mg/dL Creatinine (0.66-1.25) mg/dL Estimated GFR ML/MIN Glucose (74-106) mg/dL Lactic Acid (0.4-2.0) Calcium (8.4-10.2) mg/dL Total Bilirubin (0.2-1.3) mg/dL AST (17-59) U/L ALT (0-50) U/L Alkaline Phosphatase (38-126) U/L Serum Total Protein (6.3-8.2) g/dL Albumin (3.5-5.0) g/dL Amylase (30-110) U/L Lipase (23-300) U/L Urine Color Yellow (Yellow) Urine Appearance Clear (Clear) Urine pH 7.0 (4.6-8.0) Ur Specific [place] 1.015 (1.005-1.030) Urine Protein 30 (Negative) Urine Glucose (UA) Negative (Negative) mg/dL Urine Ketones 15 A (Negative) Urine Blood Negative (Negative) Urine Nitrite Negative (Negative) Urine Bilirubin Negative (Negative) Urine Urobilinogen 1.0 A (0.2) mg/dL Ur Leukocyte Esterase Negative (Negative) U Hyaline Cast (Auto) 3-5 A (0-2) /LPF Urine Microscopic RBC 0-2 (0-5) /HPF Urine Microscopic WBC 0-2 (0-5) /HPF Ur Epithelial Cells None Seen (None Seen) /HPF Urine Bacteria None Seen (None Seen) /HPF Urine Culture Reflexed NO (NO) - Progress Progress: improved, pain not gone completely, re-examined Progress Note: 05/24/23 10:55 CAT scan of the abdomen pelvis without contrast shows diffusely swollen pancreas with peripancreatic and retroperitoneal fat stranding. In addition there is mild peripancreatic edema/fluid. There is no evidence of abscess, phlegmon or air bubbles in this region. There appears to be small bowel reactive changes from the pancreatitis that is present. The CAT scan of the pelvis without contrast was interpreted by the radiologist and I reviewed the impression. This patient's medical issue is 1 of high complexity. The level complexity and the work-up performed is based on review of the patient's past medical history, review of the patient's medication list, review of the patient's drug allergy list, history of present illness and physical findings on examination. This patient's work-up includes placement of an intravenous line, infusion of normal saline solution, intravenous Zofran, intravenous Dilaudid, CBC, CMP, urinalysis and amylase and lipase levels. I reviewed the report of the CAT scan of the abdomen pelvis as well as the results of the laboratory studies obtained. The patient has acute pancreatitis. I spoke with Dr. Garcia, the telehospitalist on- call at this time. I reviewed the patient history, physical findings on examination and the results of the work-up performed. He also had the laboratory results in front of him. Patient will be admitted in the hospital and we will provide him with aggressive IV hydration, repeat labs in the morning, antiemetics and narcotic pain control. I discussed the work-up results, radiographic findings and plan for admission with the patient and he agrees to be admitted into the hospital. Counseled pt/family regarding: lab results, diagnosis, rad results Medical Desision Making - Discussion of managment Care discussed with:: hospitalist Reviewed:: Test results, Need for additional workup Agreed on:: Treatment plan, decision to admit Will see patient: in hospital - Diagnostic Testing Diagnostic test were ordered, analyzed, and reviewed by me: Yes Radiological Interpretation: Reviewed by me, Teleradiologist Report - Risk of complications The pt has a high risk of morbidity or mortality based on: Decision regarding hospitilization or escalation of hosp level of care - Departure Departure Disposition: In-patient Admission Clinical Impression: Acute pancreatitis, Vomiting Condition: Stable Critical Care Time: No Referrals: HOSPITAL,'S [Primary Care Provider] - Follow up/PCP as directed
[2023-05-24 09:56] LABS: Absolute Neutrophil Ct (ANC) 9.53 x10^3/uL (1.4-6.9); BASOPHIL % 0.3 % (0.0-0.4); Basophil (Absolute #) 0.04 x10^3/uL (0-0.4); Eosinophil % 1.6 % (0.00-5.0); Eosinophil (Absolute #) 0.19 x10^3/uL (0-0.5); Hematocrit 47.3 % (42-50); Hemoglobin 15.4 g/dL (12.5-18.0); IMMATURE GRAN # 0.04 x10^3u/L (0.00-0.03); IMMATURE GRAN % 0.3 % (0.00-0.4); Lymphocyte (Absolute #) 1.32 x10^3/uL (1.0-4.6); Mean Cell Volume 87.9 fL (78-100); Mean Corpuscular Hemoglobin 28.6 pg (26-32); Mean Corpuscular Hgb Concent. 32.6 g/dL (32-36); Mean Platelet Volume 9.4 fL (7.5-11.0); Monocyte (Absolute #) 0.92 x10^3/uL (0.0-1.3); Monocytes % 7.6 % (0.0-12.0); Neutrophil % 79.2 % (36.0-66.0); Platelet Count 272 x10^3/uL (150-450); Red Blood Count 5.38 x10^6/uL (4.1-5.6); Red Cell Distribution Width 13.8 % (11.5-14.0)
[2023-05-24 10:02] LABS: Appearance Clear (Clear); Bacteria None Seen /HPF (None Seen); Bilirubin Negative (Negative); Blood Negative (Negative); Epithelial Cells None Seen /HPF (None Seen); Glucose, Urine Negative (Negative); Ketones 15 (Negative); Leukocyte Esterase Negative (Negative); Nitrite Negative (Negative); Protein,Urine Dip 30 (Negative); RBC 0-2 /HPF (0-5); Specific Gravity 1.015 (1.005-1.030); WBC 0-2 /HPF (0-5)
[2023-05-24 10:04] LABS: ADD URINE CULTURE? NO (NO)
[2023-05-24 10:12] LABS: ALBUMIN 4.4 g/dL (3.5-5.0); ALKALINE PHOSPHATASE 79 U/L (38-126); ANION GAP 13.9 MEQ/L (5-15); BLOOD UREA NITROGEN 6 mg/dL (9-20); CHLORIDE 93 mmol/L (98-107); Calcium 9.1 mg/dL (8.4-10.2); Carbon Dioxide 27 mmol/L (22-30); Creatinine 1 0.57 mg/dL (0.66-1.25); EST GLOMERULAR FILTRATION RATE > 60.0 ML/MIN; Glucose 125 mg/dL (74-106); Potassium 3.8 mmol/L (3.5-5.1); SGOT/AST 29 U/L (17-59); SGPT/ALT 24 U/L (0-50); SODIUM 130 mmol/L (137-145); Total Protein 7.8 g/dL (6.3-8.2)
[2023-05-24 10:21] LABS: AMYLASE 1634 U/L (30-110)
[2023-05-24 10:40] LABS: LIPASE > 2000 U/L (23-300)
--- NOTE | 2023-05-24 10:46 | XRAY ---
CLINICAL HISTORY:ABD and back pain COMPARISON:None TECHNIQUE:CT scan of the abdomen and pelvis was performed without IV contrast. FINDINGS: Pancreas appears diffusely swollen with peripancreatic and retroperitoneal fat stranding. Mild peripancreatic edema / fluid seen. Adjacent bowel loops appear mildly edematous likely reactionary. Few prominent peripancreatic lymph nodes are seen. These findings are likely due to acute pancreatitis. As this is non contrast study, so CT severity index can not be provided. Liver is normal size and shape and with regular margins. No focal or diffuse parenchymal abnormality. No hepatic mass is identified. The portal vein, intrahepatic biliary radicals and the bile ducts are normal. Gall bladder appear normal with wall thickness. No radio opaque calculus or pericholecystic fluid identified. Common bile appears normal. Spleen normal in size, no mass seen. Both adrenal glands are unremarkable. Mild bilateral perinephric fat stranding seen. Both kidneys are normal in size, shape and orientation. No calculi, cyst mass or hydronephrosis seen on either side. Both ureters and urinary bladder appear normal. Mild degenerative changes seen in the visualized spine. Few phleboliths seen in the pelvis. Visualized lung bases appeaar unremarkable. No evidence of pleural effusion seen. Vascular calcification seen. IMPRESSION: Pancreas appears diffusely swollen with peripancreatic and retroperitoneal fat stranding. Mild peripancreatic edema / fluid seen. Adjacent bowel loops appear mildly edematous likely reactionary. Few prominent peripancreatic lymph nodes are seen. These findings are likely suggestive of acute interstitial pancreatitis. Would recommend clinical correlation and lab reports including amylase and lipase. [facility] ED department was called at [phone] at 09:40 PM PIPE SETTER, date 05/24/2023 and informed about the findings to Dr. Hanna Electronically Signed by: Keshia Conklin MD. (05/24/2023 09:44:33 PIPE SETTER)
[2023-05-24] MEDS ORDERED: Zofran 4 MG/2 ML VIAL IV PRN (11:36)
[2023-05-24] MEDS ORDERED: Hydromorphone 1 mg/ml Injection IV PRN (11:36)
[2023-05-24] MEDS ORDERED: TYLENOL 325 MG PO PRN ×2 (11:36→13:44)
[2023-05-24] MEDS: Sodium Chloride 0.9% 1000 ML 1,000 ML IV SCH ×2 (11:52→18:10)
[2023-05-24] MEDS ORDERED: Toprol-Xl 25MG Tablets PO SCH (14:00)
--- NOTE | 2023-05-24 14:17 | PCM.HP ---
<FRANCISCA ANNA - Last Filed: 05/24/23 14:40> History of Present Illness - Chief Complaint Chief Complaint: Acute pancreatitis Date: 05/24/23 History of Present Illness: Mr.LEWIS WALLACE is a 53 year old male white male patient who is a former daily alcohol consumer and has a history of recurrent pancreatitis. Patient continues to smoke cigarettes 1ppd. He started having back pain which signaled to him he probably had a pancreatitis flareup. However, in the last couple days he has had a different pain pattern with significant bandlike anterior abdominal pain. He typically has nausea and vomiting with pancreatitis and has home PRN nausea meds that have been helpful with his sxs. He explained he drank 3 beers Sunday and was working out in the sun. He does not like to drink water and may have become a bit dehydrated due to the heat and then nausea and vomiting. Patient denies chest pain. He denies shortness of breath. He has a history of gastroesophageal reflux disease, hypertension, TIA's on Plavix, coronary disease, hyperlipidemia and asthma. - Review of Systems Constitutional: No Fever, No Chills Eyes: No Symptoms Ears, Nose, & Throat: No Symptoms Respiratory: No Cough, No Short Of Breath Cardiac: No Chest Pain, No Edema, No Syncope Abdominal/Gastrointestinal: Abdominal Pain, Nausea, Vomiting, Other (LUQ, RUQ pain ), No Diarrhea Genitourinary Symptoms: No Dysuria Musculoskeletal: No Back Pain, No Neck Pain Skin: Dryness, No Rash Neurological: No Dizziness, No Focal Weakness, No Sensory Changes Psychological: No Symptoms Endocrine: No Symptoms Hematologic/Lymphatic: No Symptoms Immunological/Allergic: No Symptoms Medications & Allergies Home Medications: Home Medication List Clopidogrel Bisulfate [Plavix] 75 mg PO DAILY 04/15/21 [History Confirmed 05/24/23] Omeprazole Magnesium [Prilosec Otc] 20 mg PO DAILY 04/15/21 [History Confirmed 05/24/23] Amlodipine Besylate 5 mg PO DAILY 10/02/22 [History Confirmed 05/24/23] Losartan Potassium 50 mg [Cozaar 50 MG] 50 mg PO DAILY 10/02/22 [History Confirmed 05/24/23] Metoprolol Succinate 25 mg Xl* [Toprol-Xl 25MG Tablets] 25 mg PO DAILY 10/02/22 [History Confirmed 05/24/23] Acetaminophen 325 mg [Tylenol 325 mg] 650 mg PO Q4H PRN PRN tablet 10/03/22 [Rx Confirmed 05/24/23] Hydrocodone/Acetaminophen [Hydrocodone-Acetamin 7.5-325] 1 each PO Q6H PRN PRN 3 Days #12 tablet MDD 4 02/18/23 [Rx Confirmed 05/24/23] Promethazine HCl 25 mg [Phenergan 25 mg] 25 mg PO Q6H PRN PRN #20 tablet 02/18/23 [Rx Confirmed 05/24/23] Allergies/Adverse Reactions: Allergies Allergy/AdvReac Type Severity Reaction Status Date / Time No Known Drug Allergies Allergy Verified 02/18/23 12:49 - Past Medical History Past Medical History: Yes Neurological History: TIA ENT History: No Pertinent History Cardiac History: Coronary Artery Disease, High Cholesterol, Hypertension Respiratory History: Asthma Endocrine Medical History: No Pertinent History Musculoskelatal History: Arthritis GI Medical History: GERD, Pancreatitis History: No Pertinent History Pyscho-Social History: No Pertinent History Male Reproductive Disorders: No Pertinent History Comment: Patient reported - Past Surgical History Past Surgical History: Yes Neuro Surgical History: No Pertinent History Cardiac History: No Pertinent History Respiratory Surgery: No Pertinent History GI Surgical History: No Pertinent History Genitourinary Surgical Hx: No Pertinent History Musculskeletal Surgical Hx: No Pertinent History Male Surgical History: Vasectomy - Social History Smoking Status: Current every day smoker How long have you smoked: 30 Exposure to second hand smoke: Yes Alcohol: Occasionally Drug Use: none Significant Family History: no pertinent family hx - Physical Exam Vital Signs: Vital Signs - 24 hr Temp Pulse Resp BP BP Pulse Ox 05/24/23 12:14 171/108 05/24/23 11:47 97.3 F 97 H 18 180/112 92 L 05/24/23 11:09 96 05/24/23 11:00 74 159/90 94 L 05/24/23 10:51 166/89 97 05/24/23 10:30 169/101 99 05/24/23 10:00 69 164/104 99 05/24/23 09:30 87 173/101 96 05/24/23 09:01 168/110 96 05/24/23 08:59 96.6 F 79 20 168/110 96 General Appearance: moderate distress, alert, obese Neurologic Exam: alert, oriented x 3, cooperative, normal mood/affect, nml cerebellar function, nml station & gait, sensation nml, No motor deficits Eye Exam: PERRL/EOMI, eyes nml inspection Ears, Nose, Throat Exam: normal ENT inspection, TMs normal, pharynx normal, moist mucous membranes Neck Exam: normal inspection, non-tender, supple, full range of motion Respiratory Exam: normal breath sounds, lungs clear, No respiratory distress Cardiovascular Exam: regular rate/rhythm, normal heart sounds, normal peripheral pulses Gastrointestinal/Abdomen Exam: soft, normal bowel sounds, tenderness (LUQ and RUQ with palpation), distention, guarding, No mass Back Exam: normal inspection, normal range of motion, No CVA tenderness, No vertebral tenderness Extremity Exam: normal inspection, normal range of motion, pelvis stable Skin Exam: normal color, warm, dry, No rash Lymphatic Exam: No adenopathy Results - Labs Lab/Micro Results: Lab Results-Last 24 Hours 05/24/23 05/24/23 05/24/23 Range/Units 09:50 09:50 09:50 WBC 12.0 H (4.0-10.5) x10^3/uL RBC 5.38 (4.1-5.6) x10^6/uL Hgb 15.4 (12.5-18.0) g/dL Hct 47.3 (42-50) % MCV 87.9 (78-100) fL MCH 28.6 (26-32) pg MCHC 32.6 (32-36) g/dL RDW 13.8 (11.5-14.0) % Plt Count 272 (150-450) x10^3/uL MPV 9.4 (7.5-11.0) fL Gran % 79.2 H (36.0-66.0) % Immature Gran % (Auto) 0.3 (0.00-0.4) % Nucleat RBC Rel Count 0.0 (0.00-0.1) % Eos # (Auto) 0.19 (0-0.5) x10^3/uL Immature Gran # (Auto) 0.04 H (0.00-0.03) x10^3u/L Absolute Lymphs (auto) 1.32 (1.0-4.6) x10^3/uL Absolute Monos (auto) 0.92 (0.0-1.3) x10^3/uL Absolute Nucleated RBC 0.00 (0.00-0.01) x10^3u/L Lymphocytes % 11.0 L (24.0-44.0) % Monocytes % 7.6 (0.0-12.0) % Eosinophils % 1.6 (0.00-5.0) % Basophils % 0.3 (0.0-0.4) % Absolute Granulocytes 9.53 H (1.4-6.9) x10^3/uL Basophils # 0.04 (0-0.4) x10^3/uL Sodium 130 L (137-145) mmol/L Potassium 3.8 (3.5-5.1) mmol/L Chloride 93 L (98-107) mmol/L Carbon Dioxide 27 (22-30) mmol/L Anion Gap 13.9 (5-15) MEQ/L BUN 6 L (9-20) mg/dL Creatinine 0.57 L (0.66-1.25) mg/dL Estimated GFR > 60.0 ML/MIN Glucose 125 H (74-106) mg/dL Lactic Acid (0.4-2.0) Calcium 9.1 (8.4-10.2) mg/dL Total Bilirubin 0.70 (0.2-1.3) mg/dL AST 29 (17-59) U/L ALT 24 (0-50) U/L Alkaline Phosphatase 79 (38-126) U/L Serum Total Protein 7.8 (6.3-8.2) g/dL Albumin 4.4 (3.5-5.0) g/dL Amylase 1634 H (30-110) U/L Lipase > 2000 H (23-300) U/L Urine Color Yellow (Yellow) Urine Appearance Clear (Clear) Urine pH 7.0 (4.6-8.0) Ur Specific [place] 1.015 (1.005-1.030) Urine Protein 30 (Negative) Urine Glucose (UA) Negative (Negative) mg/dL Urine Ketones 15 A (Negative) Urine Blood Negative (Negative) Urine Nitrite Negative (Negative) Urine Bilirubin Negative (Negative) Urine Urobilinogen 1.0 A (0.2) mg/dL Ur Leukocyte Esterase Negative (Negative) U Hyaline Cast (Auto) 3-5 A (0-2) /LPF Urine Microscopic RBC 0-2 (0-5) /HPF Urine Microscopic WBC 0-2 (0-5) /HPF Ur Epithelial Cells None Seen (None Seen) /HPF Urine Bacteria None Seen (None Seen) /HPF Urine Culture Reflexed NO (NO) 05/24/23 Range/Units 09:54 WBC (4.0-10.5) x10^3/uL RBC (4.1-5.6) x10^6/uL Hgb (12.5-18.0) g/dL Hct (42-50) % MCV (78-100) fL MCH (26-32) pg MCHC (32-36) g/dL RDW (11.5-14.0) % Plt Count (150-450) x10^3/uL MPV (7.5-11.0) fL Gran % (36.0-66.0) % Immature Gran % (Auto) (0.00-0.4) % Nucleat RBC Rel Count (0.00-0.1) % Eos # (Auto) (0-0.5) x10^3/uL Immature Gran # (Auto) (0.00-0.03) x10^3u/L Absolute Lymphs (auto) (1.0-4.6) x10^3/uL Absolute Monos (auto) (0.0-1.3) x10^3/uL Absolute Nucleated RBC (0.00-0.01) x10^3u/L Lymphocytes % (24.0-44.0) % Monocytes % (0.0-12.0) % Eosinophils % (0.00-5.0) % Basophils % (0.0-0.4) % Absolute Granulocytes (1.4-6.9) x10^3/uL Basophils # (0-0.4) x10^3/uL Sodium (137-145) mmol/L Potassium (3.5-5.1) mmol/L Chloride (98-107) mmol/L Carbon Dioxide (22-30) mmol/L Anion Gap (5-15) MEQ/L BUN (9-20) mg/dL Creatinine (0.66-1.25) mg/dL Estimated GFR ML/MIN Glucose (74-106) mg/dL Lactic Acid 1.4 (0.4-2.0) Calcium (8.4-10.2) mg/dL Total Bilirubin (0.2-1.3) mg/dL AST (17-59) U/L ALT (0-50) U/L Alkaline Phosphatase (38-126) U/L Serum Total Protein (6.3-8.2) g/dL Albumin (3.5-5.0) g/dL Amylase (30-110) U/L Lipase (23-300) U/L Urine Color (Yellow) Urine Appearance (Clear) Urine pH (4.6-8.0) Ur Specific [place] (1.005-1.030) Urine Protein (Negative) Urine Glucose (UA) (Negative) mg/dL Urine Ketones (Negative) Urine Blood (Negative) Urine Nitrite (Negative) Urine Bilirubin (Negative) Urine Urobilinogen (0.2) mg/dL Ur Leukocyte Esterase (Negative) U Hyaline Cast (Auto) (0-2) /LPF Urine Microscopic RBC (0-5) /HPF Urine Microscopic WBC (0-5) /HPF Ur Epithelial Cells (None Seen) /HPF Urine Bacteria (None Seen) /HPF Urine Culture Reflexed (NO) - Radiology Impressions Radiology Exams & Impressions: Radiology Procedures Category Date Time Status ABDOMEN AND PELVIS W/0 CONTRAS [CT] Stat Exams 05/24/23 09:12 Completed Assessment/Plan (1) HTN (hypertension) Current Visit: Yes Status: Chronic Qualifiers: Hypertension type: primary hypertension Qualified Code(s): I10 - Essential (primary) hypertension Code(s): I10 - ESSENTIAL (PRIMARY) HYPERTENSION (2) GERD (gastroesophageal reflux disease) Current Visit: Yes Status: Chronic Code(s): K21.9 - GASTRO-ESOPHAGEAL REFLUX DISEASE WITHOUT ESOPHAGITIS (3) History of TIA (transient ischemic attack) Current Visit: Yes Status: Chronic Code(s): Z86.73 - PRSNL HX OF TIA (TIA), AND CEREB INFRC W/O RESID DEFICITS (4) CAD (coronary artery disease) Current Visit: Yes Status: Chronic Code(s): I25.10 - ATHSCL HEART DISEASE OF [place] CORONARY ARTERY W/O ANG PCTRS (5) Hyperlipidemia Current Visit: Yes Status: Chronic Code(s): E78.5 - HYPERLIPIDEMIA, UNSPECIFIED (6) Asthma Current Visit: Yes Status: Chronic Code(s): J45.909 - UNSPECIFIED ASTHMA, UNCOMPLICATED (7) Acute pancreatitis Current Visit: Yes Status: Acute Code(s): K85.90 - ACUTE PANCREATITIS WITHOUT NECROSIS OR INFECTION, UNSP (8) Vomiting Current Visit: Yes Status: Acute Qualifiers: Nausea presence: with nausea Code(s): R11.10 - VOMITING, UNSPECIFIED (9) Tobacco dependence Current Visit: Yes Status: Chronic Code(s): F17.200 - NICOTINE DEPENDENCE, UNSPECIFIED, UNCOMPLICATED (10) Alcohol use Current Visit: Yes Status: Chronic Code(s): Z78.9 - OTHER SPECIFIED HEALTH STATUS Telemedicine Encounter - Telemedicine Encounter Telemedicine Encounter: * Pancreatitis- acute - due to alcohol use, dehydration from working in the heat - Clear liquid diet- advanced to low fat diet as tolerated - Lipase > 2,000 - PRN medication for N/V - BR with BRP - Dilaudid 0.5mg Q2 hr PRN for pain control - CBC, CMP daily- trend - NS @ 150ml/hr - Lipid panel - Alcohol level - I&O QID - CT abd reviewed and confirmed dx - agree with radiology report- no necrosis *GERD- chronic - changed prilosec to protinix IV * HTN- has not taken home meds this morning, increased d/t pain - restart home meds - Continue to monitor * TIA hx - continue Plavix * CAD- chronic - continue home meds *Hyperlipidemia- Chronic - lipid panel in AM * Asthma-chronic - RT to eval for any concerns * Tobacco use- chronic- 1ppd - advised cessation - Pt refused nicotine patch * Chronic alcohol use - advised cessation Diet: Clear liquid Discharge plan 1-2 days when sxs resolved- home VTE: Plavix GI prophylactic: Protonix Code status: Full <SUNNAHID DALTONLE - Last Filed: 05/24/23 15:25> History of Present Illness - Chief Complaint History of Present Illness: Mr.LEWIS WALLACE is a 53 year old male. - Physical Exam Vital Signs: Vital Signs - 24 hr Temp Pulse Resp BP BP Pulse Ox 05/24/23 12:14 171/108 05/24/23 11:47 97.3 F 97 H 18 180/112 92 L 05/24/23 11:09 96 05/24/23 11:00 74 159/90 94 L 05/24/23 10:51 166/89 97 05/24/23 10:30 169/101 99 05/24/23 10:00 69 164/104 99 05/24/23 09:30 87 173/101 96 05/24/23 09:01 168/110 96 05/24/23 08:59 96.6 F 79 20 168/110 96 Results - Labs Lab/Micro Results: Lab Results-Last 24 Hours 05/24/23 05/24/23 05/24/23 Range/Units 09:12 09:50 09:50 WBC 12.0 H (4.0-10.5) x10^3/uL RBC 5.38 (4.1-5.6) x10^6/uL Hgb 15.4 (12.5-18.0) g/dL Hct 47.3 (42-50) % MCV 87.9 (78-100) fL MCH 28.6 (26-32) pg MCHC 32.6 (32-36) g/dL RDW 13.8 (11.5-14.0) % Plt Count 272 (150-450) x10^3/uL MPV 9.4 (7.5-11.0) fL Gran % 79.2 H (36.0-66.0) % Immature Gran % (Auto) 0.3 (0.00-0.4) % Nucleat RBC Rel Count 0.0 (0.00-0.1) % Eos # (Auto) 0.19 (0-0.5) x10^3/uL Immature Gran # (Auto) 0.04 H (0.00-0.03) x10^3u/L Absolute Lymphs (auto) 1.32 (1.0-4.6) x10^3/uL Absolute Monos (auto) 0.92 (0.0-1.3) x10^3/uL Absolute Nucleated RBC 0.00 (0.00-0.01) x10^3u/L Lymphocytes % 11.0 L (24.0-44.0) % Monocytes % 7.6 (0.0-12.0) % Eosinophils % 1.6 (0.00-5.0) % Basophils % 0.3 (0.0-0.4) % Absolute Granulocytes 9.53 H (1.4-6.9) x10^3/uL Basophils # 0.04 (0-0.4) x10^3/uL Sodium (137-145) mmol/L Potassium (3.5-5.1) mmol/L Chloride (98-107) mmol/L Carbon Dioxide (22-30) mmol/L Anion Gap (5-15) MEQ/L BUN (9-20) mg/dL Creatinine (0.66-1.25) mg/dL Estimated GFR ML/MIN Glucose (74-106) mg/dL Lactic Acid (0.4-2.0) Calcium (8.4-10.2) mg/dL Total Bilirubin (0.2-1.3) mg/dL AST (17-59) U/L ALT (0-50) U/L Alkaline Phosphatase (38-126) U/L Serum Total Protein (6.3-8.2) g/dL Albumin (3.5-5.0) g/dL Amylase (30-110) U/L Lipase (23-300) U/L Urine Color Yellow (Yellow) Urine Appearance Clear (Clear) Urine pH 7.0 (4.6-8.0) Ur Specific [place] 1.015 (1.005-1.030) Urine Protein 30 (Negative) Urine Glucose (UA) Negative (Negative) mg/dL Urine Ketones 15 A (Negative) Urine Blood Negative (Negative) Urine Nitrite Negative (Negative) Urine Bilirubin Negative (Negative) Urine Urobilinogen 1.0 A (0.2) mg/dL Ur Leukocyte Esterase Negative (Negative) U Hyaline Cast (Auto) 3-5 A (0-2) /LPF Urine Microscopic RBC 0-2 (0-5) /HPF Urine Microscopic WBC 0-2 (0-5) /HPF Ur Epithelial Cells None Seen (None Seen) /HPF Urine Bacteria None Seen (None Seen) /HPF Urine Culture Reflexed NO (NO) Ethyl Alcohol < 10 (0-10) mg/dL 05/24/23 05/24/23 Range/Units 09:50 09:54 WBC (4.0-10.5) x10^3/uL RBC (4.1-5.6) x10^6/uL Hgb (12.5-18.0) g/dL Hct (42-50) % MCV (78-100) fL MCH (26-32) pg MCHC (32-36) g/dL RDW (11.5-14.0) % Plt Count (150-450) x10^3/uL MPV (7.5-11.0) fL Gran % (36.0-66.0) % Immature Gran % (Auto) (0.00-0.4) % Nucleat RBC Rel Count (0.00-0.1) % Eos # (Auto) (0-0.5) x10^3/uL Immature Gran # (Auto) (0.00-0.03) x10^3u/L Absolute Lymphs (auto) (1.0-4.6) x10^3/uL Absolute Monos (auto) (0.0-1.3) x10^3/uL Absolute Nucleated RBC (0.00-0.01) x10^3u/L Lymphocytes % (24.0-44.0) % Monocytes % (0.0-12.0) % Eosinophils % (0.00-5.0) % Basophils % (0.0-0.4) % Absolute Granulocytes (1.4-6.9) x10^3/uL Basophils # (0-0.4) x10^3/uL Sodium 130 L (137-145) mmol/L Potassium 3.8 (3.5-5.1) mmol/L Chloride 93 L (98-107) mmol/L Carbon Dioxide 27 (22-30) mmol/L Anion Gap 13.9 (5-15) MEQ/L BUN 6 L (9-20) mg/dL Creatinine 0.57 L (0.66-1.25) mg/dL Estimated GFR > 60.0 ML/MIN Glucose 125 H (74-106) mg/dL Lactic Acid 1.4 (0.4-2.0) Calcium 9.1 (8.4-10.2) mg/dL Total Bilirubin 0.70 (0.2-1.3) mg/dL AST 29 (17-59) U/L ALT 24 (0-50) U/L Alkaline Phosphatase 79 (38-126) U/L Serum Total Protein 7.8 (6.3-8.2) g/dL Albumin 4.4 (3.5-5.0) g/dL Amylase 1634 H (30-110) U/L Lipase > 2000 H (23-300) U/L Urine Color (Yellow) Urine Appearance (Clear) Urine pH (4.6-8.0) Ur Specific [place] (1.005-1.030) Urine Protein (Negative) Urine Glucose (UA) (Negative) mg/dL Urine Ketones (Negative) Urine Blood (Negative) Urine Nitrite (Negative) Urine Bilirubin (Negative) Urine Urobilinogen (0.2) mg/dL Ur Leukocyte Esterase (Negative) U Hyaline Cast (Auto) (0-2) /LPF Urine Microscopic RBC (0-5) /HPF Urine Microscopic WBC (0-5) /HPF Ur Epithelial Cells (None Seen) /HPF Urine Bacteria (None Seen) /HPF Urine Culture Reflexed (NO) Ethyl Alcohol Cancelled (0-10) mg/dL - Radiology Impressions Radiology Exams & Impressions: Radiology Procedures Category Date Time Status ABDOMEN AND PELVIS W/0 CONTRAS [CT] Stat Exams 05/24/23 09:12 Completed - Other Procedures and Tests Respiratory Therapy 05/24/23 15:15 Respiratory Therapy Consult ROUTINE Telemedicine Encounter - Telemedicine Encounter Telemedicine Encounter: 6 I have personally seen and examined patient and discussed care with Francisca Anna NP and reviewed pertinent clinical data including history, physical, and diagnostic findings. I agree with the assessment, and treatment plan as described in her original note. Please see below for my summary of findings and any additional assessment and plan, as well as any meaningful corre ctions or explanations of their note. My portion of visit was conducted entirely via telemedicine, to which patient consented. Recurrent acute pancreatitis. Manage on IV fluids, pain and nausea control, slowly advance diet as tolerated. Dona Garcia MD, PhD Internal Medicine Hospitalist [facility]
[2023-05-24] MEDS: PLAVIX Tablet PO SCH (14:18)
[2023-05-24] MEDS: Cozaar 50 MG PO SCH (14:19)
[2023-05-24] MEDS: NORVASC 5 MG PO SCH (14:19)
[2023-05-24] MEDS ORDERED: PROTONIX 40 MG IV IV SCH (14:45)
[2023-05-24] MEDS: Hydromorphone 1 mg/ml Injection IV PRN ×4 (15:24→21:57)
[2023-05-24] MEDS ORDERED: NORVASC 5 MG PO ONE (16:16)
[2023-05-24] MEDS: APRESOLINE 20 MG/ML INJ IV PRN (18:05)
[2023-05-25] MEDS: APRESOLINE 20 MG/ML INJ IV PRN (00:01)
[2023-05-25] MEDS: Sodium Chloride 0.9% 1000 ML 1,000 ML IV SCH (00:50)
[2023-05-25 04:23] LABS: Absolute Neutrophil Ct (ANC) 11.88 x10^3/uL (1.4-6.9); BASOPHIL % 0.1 % (0.0-0.4); Basophil (Absolute #) 0.02 x10^3/uL (0-0.4); Eosinophil % 0.1 % (0.00-5.0); Eosinophil (Absolute #) 0.02 x10^3/uL (0-0.5); Hematocrit 43.8 % (42-50); Hemoglobin 14.5 g/dL (12.5-18.0); IMMATURE GRAN # 0.04 x10^3u/L (0.00-0.03); IMMATURE GRAN % 0.3 % (0.00-0.4); Lymphocyte (Absolute #) 1.15 x10^3/uL (1.0-4.6); Lymphocytes % 7.9 % (24.0-44.0); Mean Cell Volume 86.7 fL (78-100); Mean Corpuscular Hemoglobin 28.7 pg (26-32); Mean Corpuscular Hgb Concent. 33.1 g/dL (32-36); Mean Platelet Volume 9.3 fL (7.5-11.0); Monocyte (Absolute #) 1.44 x10^3/uL (0.0-1.3); Monocytes % 9.9 % (0.0-12.0); Neutrophil % 81.7 % (36.0-66.0); Platelet Count 227 x10^3/uL (150-450); Red Blood Count 5.05 x10^6/uL (4.1-5.6); Red Cell Distribution Width 14.1 % (11.5-14.0); White Blood Count 14.6 x10^3/uL (4.0-10.5)
[2023-05-25 04:43] LABS: ALBUMIN 3.9 g/dL (3.5-5.0); ALKALINE PHOSPHATASE 68 U/L (38-126); AMYLASE 1078 U/L (30-110); ANION GAP 14.2 MEQ/L (5-15); BLOOD UREA NITROGEN 4 mg/dL (9-20); CHLORIDE 97 mmol/L (98-107); Calcium 8.5 mg/dL (8.4-10.2); Carbon Dioxide 22 mmol/L (22-30); Cholesterol 190 mg/dL (50-200); Creatinine 1 0.45 mg/dL (0.66-1.25); EST GLOMERULAR FILTRATION RATE > 60.0 ML/MIN; Glucose 98 mg/dL (74-106); HDL CHOLESTEROL 37 mg/dL (40-60); LDL, DIRECT 127 mg/dL (30-100); NT PRO BNPII 583 pg/mL (<300); Potassium 3.6 mmol/L (3.5-5.1); Risk Ratio 5.2; SGOT/AST 26 U/L (17-59); SGPT/ALT 19 U/L (0-50); SODIUM 130 mmol/L (137-145); TRIGLYCERIDE 80 mg/dL (30-150); Total Protein 7.3 g/dL (6.3-8.2)
[2023-05-25 05:35] LABS: LIPASE 5046 U/L (23-300)
[2023-05-25] MEDS ORDERED: Toprol-Xl 25MG Tablets PO SCH (07:32)
[2023-05-25 07:49] VITALS: RESP 19
[2023-05-25] MEDS ORDERED: Lactated Ringers 1,000 ML IV SCH (08:00)
[2023-05-25] MEDS: NORVASC 5 MG PO SCH (09:06)
[2023-05-25] MEDS: PLAVIX Tablet PO SCH (09:07)
[2023-05-25] MEDS: Cozaar 50 MG PO SCH (09:07)
[2023-05-25] MEDS ORDERED: PROTONIX 40 MG IV IV SCH (10:00)
[2023-05-25 11:32] VITALS: BP 134/86; PULSE 83; TEMP 98.2; O2SAT 96
--- NOTE | 2023-05-25 13:22 | PCM.DS ---
Discharge Summary Date of Admission: 05/24/23 11:28 Date of Discharge: 05/25/23 Admitting Physician: DONA GARCIA MD Primary Care Provider: [facility] <FRANCISCA ANNA - Last Filed: 05/25/23 13:22> Date of Admission: 05/24/23 11:28 Admitting Physician: DONA GARCIA MD Primary Care Provider: [facility] <DONA GARCIA - Last Filed: 05/25/23 13:54> Allergies <FRANCISCA ANNA - Last Filed: 05/25/23 13:22> <DONA GARCIA - Last Filed: 05/25/23 13:54> Allergies No Known Drug Allergies Allergy (Verified 02/18/23 12:49) Hospital Summary - Vitals & Intake/Output Vital Signs: Vital Signs Temperature 98.2 F 05/25/23 11:29 Pulse Rate 83 05/25/23 11:29 Respiratory Rate 19 05/25/23 11:29 Blood Pressure 134/86 05/25/23 11:29 O2 Sat by Pulse Oximetry 96 05/25/23 11:29 Intake & Output: Intake & Output 05/23/23 05/24/23 05/25/23 05/26/23 11:59 11:59 11:59 11:59 Intake Total 340 120 Output Total 900 Balance -560 120 Weight 91.4 kg 91.2 kg - Lab Result Diagrams: 05/25/23 04:08 05/25/23 04:08 Lab Results-Last 24 Hrs: Lab Results-Last 24 Hours 05/24/23 05/24/23 05/25/23 Range/Units 09:12 09:50 04:08 WBC 14.6 H (4.0-10.5) x10^3/uL RBC 5.05 (4.1-5.6) x10^6/uL Hgb 14.5 (12.5-18.0) g/dL Hct 43.8 (42-50) % MCV 86.7 (78-100) fL MCH 28.7 (26-32) pg MCHC 33.1 (32-36) g/dL RDW 14.1 H (11.5-14.0) % Plt Count 227 (150-450) x10^3/uL MPV 9.3 (7.5-11.0) fL Gran % 81.7 H (36.0-66.0) % Immature Gran % (Auto) 0.3 (0.00-0.4) % Nucleat RBC Rel Count 0.0 (0.00-0.1) % Eos # (Auto) 0.02 (0-0.5) x10^3/uL Immature Gran # (Auto) 0.04 H (0.00-0.03) x10^3u/L Absolute Lymphs (auto) 1.15 (1.0-4.6) x10^3/uL Absolute Monos (auto) 1.44 H (0.0-1.3) x10^3/uL Absolute Nucleated RBC 0.00 (0.00-0.01) x10^3u/L Lymphocytes % 7.9 L (24.0-44.0) % Monocytes % 9.9 (0.0-12.0) % Eosinophils % 0.1 (0.00-5.0) % Basophils % 0.1 (0.0-0.4) % Absolute Granulocytes 11.88 H (1.4-6.9) x10^3/uL Basophils # 0.02 (0-0.4) x10^3/uL Sodium 130 L (137-145) mmol/L Potassium 3.8 (3.5-5.1) mmol/L Chloride 93 L (98-107) mmol/L Carbon Dioxide 27 (22-30) mmol/L Anion Gap 13.9 (5-15) MEQ/L BUN 6 L (9-20) mg/dL Creatinine 0.57 L (0.66-1.25) mg/dL Estimated GFR > 60.0 ML/MIN Glucose 125 H (74-106) mg/dL Calcium 9.1 (8.4-10.2) mg/dL Total Bilirubin 0.70 (0.2-1.3) mg/dL AST 29 (17-59) U/L ALT 24 (0-50) U/L Alkaline Phosphatase 79 (38-126) U/L NT-Pro-B Natriuret Pep (<300) pg/mL Serum Total Protein 7.8 (6.3-8.2) g/dL Albumin 4.4 (3.5-5.0) g/dL Triglycerides (30-150) mg/dL Cholesterol (50-200) mg/dL LDL Cholesterol (30-100) mg/dL HDL Cholesterol (40-60) mg/dL Heart Disease Risk Ratio Amylase 1634 H (30-110) U/L Lipase > 2000 H (23-300) U/L Ethyl Alcohol < 10 Cancelled (0-10) mg/dL 05/25/23 Range/Units 04:08 WBC (4.0-10.5) x10^3/uL RBC (4.1-5.6) x10^6/uL Hgb (12.5-18.0) g/dL Hct (42-50) % MCV (78-100) fL MCH (26-32) pg MCHC (32-36) g/dL RDW (11.5-14.0) % Plt Count (150-450) x10^3/uL MPV (7.5-11.0) fL Gran % (36.0-66.0) % Immature Gran % (Auto) (0.00-0.4) % Nucleat RBC Rel Count (0.00-0.1) % Eos # (Auto) (0-0.5) x10^3/uL Immature Gran # (Auto) (0.00-0.03) x10^3u/L Absolute Lymphs (auto) (1.0-4.6) x10^3/uL Absolute Monos (auto) (0.0-1.3) x10^3/uL Absolute Nucleated RBC (0.00-0.01) x10^3u/L Lymphocytes % (24.0-44.0) % Monocytes % (0.0-12.0) % Eosinophils % (0.00-5.0) % Basophils % (0.0-0.4) % Absolute Granulocytes (1.4-6.9) x10^3/uL Basophils # (0-0.4) x10^3/uL Sodium 130 L (137-145) mmol/L Potassium 3.6 (3.5-5.1) mmol/L Chloride 97 L (98-107) mmol/L Carbon Dioxide 22 (22-30) mmol/L Anion Gap 14.2 (5-15) MEQ/L BUN 4 L (9-20) mg/dL Creatinine 0.45 L (0.66-1.25) mg/dL Estimated GFR > 60.0 ML/MIN Glucose 98 (74-106) mg/dL Calcium 8.5 (8.4-10.2) mg/dL Total Bilirubin 0.60 (0.2-1.3) mg/dL AST 26 (17-59) U/L ALT 19 (0-50) U/L Alkaline Phosphatase 68 (38-126) U/L NT-Pro-B Natriuret Pep 583 (<300) pg/mL Serum Total Protein 7.3 (6.3-8.2) g/dL Albumin 3.9 (3.5-5.0) g/dL Triglycerides 80 (30-150) mg/dL Cholesterol 190 (50-200) mg/dL LDL Cholesterol 127 H (30-100) mg/dL HDL Cholesterol 37 L (40-60) mg/dL Heart Disease Risk Ratio 5.2 Amylase 1078 H (30-110) U/L Lipase 5046 H (23-300) U/L Ethyl Alcohol (0-10) mg/dL - Radiology Exams Ordered Rad Exams-Entire Visit: Radiology Procedures Category Date Time Status ABDOMEN AND PELVIS W/0 CONTRAS [CT] Stat Exams 05/24/23 09:12 Completed - Procedures and Test Procedures and Tests throughout Hospitalization: Therapy Orders & Screens 05/24/23 12:02 Smoking Cessation Education ONCE Comment: Diagnosis: Acute pancreatitis Smoking Status: Current every day smoker How long have you smoked: 30 Have you smoked in the past 12 months: Yes Approximately how many cigarettes per day: 20 Do you dip or chew tobacco: No 05/24/23 15:15 Respiratory Therapy Consult ROUTINE Comment: Reason For Exam: Diagnosis: Acute pancreatitis 05/24/23 15:42 Oxygen Nasal Cannula 2 lpm Comment: Diagnosis: Acute pancreatitis <FRANCISCA ANNA - Last Filed: 05/25/23 13:22> - Vitals & Intake/Output Vital Signs: Vital Signs Temperature 98.2 F 05/25/23 11:29 Pulse Rate 83 05/25/23 11:29 Respiratory Rate 19 05/25/23 11:29 Blood Pressure 134/86 05/25/23 11:29 O2 Sat by Pulse Oximetry 96 05/25/23 11:29 Intake & Output: Intake & Output 05/23/23 05/24/23 05/25/23 05/26/23 11:59 11:59 11:59 11:59 Intake Total 340 120 Output Total 900 Balance -560 120 Weight 91.4 kg 91.2 kg - Lab Result Diagrams: 05/25/23 04:08 05/25/23 04:08 Lab Results-Last 24 Hrs: Lab Results-Last 24 Hours 05/24/23 05/24/23 05/25/23 Range/Units 09:12 09:50 04:08 WBC 14.6 H (4.0-10.5) x10^3/uL RBC 5.05 (4.1-5.6) x10^6/uL Hgb 14.5 (12.5-18.0) g/dL Hct 43.8 (42-50) % MCV 86.7 (78-100) fL MCH 28.7 (26-32) pg MCHC 33.1 (32-36) g/dL RDW 14.1 H (11.5-14.0) % Plt Count 227 (150-450) x10^3/uL MPV 9.3 (7.5-11.0) fL Gran % 81.7 H (36.0-66.0) % Immature Gran % (Auto) 0.3 (0.00-0.4) % Nucleat RBC Rel Count 0.0 (0.00-0.1) % Eos # (Auto) 0.02 (0-0.5) x10^3/uL Immature Gran # (Auto) 0.04 H (0.00-0.03) x10^3u/L Absolute Lymphs (auto) 1.15 (1.0-4.6) x10^3/uL Absolute Monos (auto) 1.44 H (0.0-1.3) x10^3/uL Absolute Nucleated RBC 0.00 (0.00-0.01) x10^3u/L Lymphocytes % 7.9 L (24.0-44.0) % Monocytes % 9.9 (0.0-12.0) % Eosinophils % 0.1 (0.00-5.0) % Basophils % 0.1 (0.0-0.4) % Absolute Granulocytes 11.88 H (1.4-6.9) x10^3/uL Basophils # 0.02 (0-0.4) x10^3/uL Sodium 130 L (137-145) mmol/L Potassium 3.8 (3.5-5.1) mmol/L Chloride 93 L (98-107) mmol/L Carbon Dioxide 27 (22-30) mmol/L Anion Gap 13.9 (5-15) MEQ/L BUN 6 L (9-20) mg/dL Creatinine 0.57 L (0.66-1.25) mg/dL Estimated GFR > 60.0 ML/MIN Glucose 125 H (74-106) mg/dL Calcium 9.1 (8.4-10.2) mg/dL Total Bilirubin 0.70 (0.2-1.3) mg/dL AST 29 (17-59) U/L ALT 24 (0-50) U/L Alkaline Phosphatase 79 (38-126) U/L NT-Pro-B Natriuret Pep (<300) pg/mL Serum Total Protein 7.8 (6.3-8.2) g/dL Albumin 4.4 (3.5-5.0) g/dL Triglycerides (30-150) mg/dL Cholesterol (50-200) mg/dL LDL Cholesterol (30-100) mg/dL HDL Cholesterol (40-60) mg/dL Heart Disease Risk Ratio Amylase 1634 H (30-110) U/L Lipase > 2000 H (23-300) U/L Ethyl Alcohol < 10 Cancelled (0-10) mg/dL 05/25/23 Range/Units 04:08 WBC (4.0-10.5) x10^3/uL RBC (4.1-5.6) x10^6/uL Hgb (12.5-18.0) g/dL Hct (42-50) % MCV (78-100) fL MCH (26-32) pg MCHC (32-36) g/dL RDW (11.5-14.0) % Plt Count (150-450) x10^3/uL MPV (7.5-11.0) fL Gran % (36.0-66.0) % Immature Gran % (Auto) (0.00-0.4) % Nucleat RBC Rel Count (0.00-0.1) % Eos # (Auto) (0-0.5) x10^3/uL Immature Gran # (Auto) (0.00-0.03) x10^3u/L Absolute Lymphs (auto) (1.0-4.6) x10^3/uL Absolute Monos (auto) (0.0-1.3) x10^3/uL Absolute Nucleated RBC (0.00-0.01) x10^3u/L Lymphocytes % (24.0-44.0) % Monocytes % (0.0-12.0) % Eosinophils % (0.00-5.0) % Basophils % (0.0-0.4) % Absolute Granulocytes (1.4-6.9) x10^3/uL Basophils # (0-0.4) x10^3/uL Sodium 130 L (137-145) mmol/L Potassium 3.6 (3.5-5.1) mmol/L Chloride 97 L (98-107) mmol/L Carbon Dioxide 22 (22-30) mmol/L Anion Gap 14.2 (5-15) MEQ/L BUN 4 L (9-20) mg/dL Creatinine 0.45 L (0.66-1.25) mg/dL Estimated GFR > 60.0 ML/MIN Glucose 98 (74-106) mg/dL Calcium 8.5 (8.4-10.2) mg/dL Total Bilirubin 0.60 (0.2-1.3) mg/dL AST 26 (17-59) U/L ALT 19 (0-50) U/L Alkaline Phosphatase 68 (38-126) U/L NT-Pro-B Natriuret Pep 583 (<300) pg/mL Serum Total Protein 7.3 (6.3-8.2) g/dL Albumin 3.9 (3.5-5.0) g/dL Triglycerides 80 (30-150) mg/dL Cholesterol 190 (50-200) mg/dL LDL Cholesterol 127 H (30-100) mg/dL HDL Cholesterol 37 L (40-60) mg/dL Heart Disease Risk Ratio 5.2 Amylase 1078 H (30-110) U/L Lipase 5046 H (23-300) U/L Ethyl Alcohol (0-10) mg/dL - Radiology Exams Ordered Rad Exams-Entire Visit: Radiology Procedures Category Date Time Status ABDOMEN AND PELVIS W/0 CONTRAS [CT] Stat Exams 05/24/23 09:12 Completed - Procedures and Test Procedures and Tests throughout Hospitalization: Therapy Orders & Screens 05/24/23 12:02 Smoking Cessation Education ONCE Comment: Diagnosis: Acute pancreatitis Smoking Status: Current every day smoker How long have you smoked: 30 Have you smoked in the past 12 months: Yes Approximately how many cigarettes per day: 20 Do you dip or chew tobacco: No 05/24/23 15:15 Respiratory Therapy Consult ROUTINE Comment: Reason For Exam: Diagnosis: Acute pancreatitis 05/24/23 15:42 Oxygen Nasal Cannula 2 lpm Comment: Diagnosis: Acute pancreatitis <DONA GARCIA - Last Filed: 05/25/23 13:54> Discharge Exam General Appearance: no apparent distress, alert Neurologic Exam: alert, oriented x 3, cooperative, normal mood/affect, nml cere bellar function, sensation nml, No motor deficits Eye Exam: PERRL, EOMI, eyes nml inspection Ears, Nose, Throat Exam: normal ENT inspection, pharynx normal, moist mucous membranes Neck Exam: normal inspection, non-tender, supple, full range of motion Respiratory Exam: normal breath sounds, lungs clear, No respiratory distress Cardiovascular Exam: regular rate/rhythm, normal heart sounds Gastrointestinal/Abdomen Exam: soft, tenderness (LUQ and RUQ slight tenderness with palaption), No mass Male Genitalia Exam: deferred Rectal Exam: deferred Back Exam: normal inspection, normal range of motion, No CVA tenderness, No vertebral tenderness Extremity Exam: normal inspection, normal range of motion Skin Exam: normal color, warm, dry <FRANCISCA ANNA - Last Filed: 05/25/23 13:22> Final Diagnosis/Problem List - Final Discharge Diagnosis/Problem (1) HTN (hypertension) Current Visit: Yes Status: Chronic Code(s): I10 - ESSENTIAL (PRIMARY) HYPERTENSION (2) GERD (gastroesophageal reflux disease) Current Visit: Yes Status: Chronic Code(s): K21.9 - GASTRO-ESOPHAGEAL REFLUX DISEASE WITHOUT ESOPHAGITIS (3) History of TIA (transient ischemic attack) Current Visit: Yes Status: Chronic Code(s): Z86.73 - PRSNL HX OF TIA (TIA), AND CEREB INFRC W/O RESID DEFICITS (4) CAD (coronary artery disease) Current Visit: Yes Status: Chronic Code(s): I25.10 - ATHSCL HEART DISEASE OF [place] CORONARY ARTERY W/O ANG PCTRS (5) Hyperlipidemia Current Visit: Yes Status: Chronic Code(s): E78.5 - HYPERLIPIDEMIA, UNSPECIFIED (6) Asthma Current Visit: Yes Status: Chronic Code(s): J45.909 - UNSPECIFIED ASTHMA, UNCOMPLICATED (7) Acute pancreatitis Current Visit: Yes Status: Acute Code(s): K85.90 - ACUTE PANCREATITIS WITHOUT NECROSIS OR INFECTION, UNSP (8) Vomiting Current Visit: Yes Status: Acute Code(s): R11.10 - VOMITING, UNSPECIFIED (9) Tobacco dependence Current Visit: Yes Status: Chronic Code(s): F17.200 - NICOTINE DEPENDENCE, UNSPECIFIED, UNCOMPLICATED (10) Alcohol use Current Visit: Yes Status: Chronic Code(s): Z78.9 - OTHER SPECIFIED HEALTH STATUS (11) Oxygen desaturation during sleep Current Visit: Yes Status: Acute Code(s): G47.34 - IDIO SLEEP RELATED NONOBSTRUCTIVE ALVEOLAR HYPOVENTILATION (12) Loud snoring Current Visit: Yes Status: Acute Code(s): R06.83 - SNORING <FRANCISCA ANNA - Last Filed: 05/25/23 13:22> Telemedicine Encounter - Telemedicine Encounter Telemedicine Encounter: Mr.LEWIS WALLACE is a 53 year old male white male patient who is a former daily alcohol consumer and has a history of recurrent pancreatitis. Patient continues to smoke cigarettes 1ppd. Pain has resolved and he has not needed any narcotic pain medication since last night. He is no longer having any nausea or vomiting. BP well controlled at this time. He was able to eat a soft diet at lunch without any concerns. He is eating and drinking well. Advised pt to advance diet as tolerated at home. Advised alcohol and smoking cessation. Follow up with PCP for [facility] * Pancreatitis- acute - due to alcohol use, dehydration from working in the heat - tolerated soft diet when advanced no N/V - CT abd reviewed and confirmed dx - agree with radiology report- no necrosis *GERD- chronic - continue prilosec * HTN - continue home meds -stable * TIA hx - continue Plavix * CAD- chronic - continue home meds *Hyperlipidemia- Chronic - lipid panel reviewed - advised low fat -low cholesterol diet * Asthma-chronic - no current concerns * Tobacco use- chronic- 1ppd - advised cessation * Chronic alcohol use - advised cessation * Need for oxygen at night - oxygen decreased when snoring at night and RT placed 2LNC * Loud snoring - [facility] and wants [facility]. [facility]- [facility]CP and GI Advance diet as tolerated Follow up in ER for any concerning symptoms or uncontrolled pain. <FRANCISCA ANNA - Last Filed: 05/25/23 13:22> - Telemedicine Encounter Telemedicine Encounter: I have personally seen and examined patient and discussed care with Francisca Anna NP and reviewed pertinent clinical data including history, physical, and diagnostic findings. I agree with the assessment, and treatment plan as described in her original note. Please see below for my summary of findings and any additional assessment and plan, as well as any meaningful corrections or explanations of their note. My portion of visit was conducted entirely via telemedicine, to which patient consented. 53-year-old man admitted with recurrent pancreatitis. Patient had a brief hospital stay, was put on limited diet, given IV fluids and pain medicines. Pain was quickly controlled, and he was tolerating regular diet prior to discharge. Of note, he had some hypoxia overnight, reports daytime sleepiness, as well as loud snoring. He is currently pending referral for a sleep study at the [facility]. Dona Garcia MD, PhD Internal Medicine Hospitalist [facility] <DONA GARCIA - Last Filed: 05/25/23 13:54> <FRANCISCA ANNA - Last Filed: 05/25/23 13:22> <DONA GARCIA - Last Filed: 05/25/23 13:54> - Discharge Disposition: Home, Self-Care Condition: Stable Prescriptions: Continue Omeprazole Magnesium [Prilosec Otc] 20 mg PO DAILY Clopidogrel Bisulfate [Plavix] 75 mg PO DAILY Amlodipine Besylate 5 mg PO DAILY Metoprolol Succinate 25 mg Xl* [Toprol-Xl 25MG Tablets] 25 mg PO DAILY Losartan Potassium 50 mg [Cozaar 50 MG] 50 mg PO DAILY Acetaminophen 325 mg [Tylenol 325 mg] 650 mg PO Q4H PRN PRN tablet PRN Reason: Pain, Fever, Headache Hydrocodone/Acetaminophen [Hydrocodone-Acetamin 7.5-325] 1 each PO Q6H PRN PRN 3 Days #12 tablet MDD 4 PRN Reason: Pain Promethazine HCl 25 mg [Phenergan 25 mg] 25 mg PO Q6H PRN PRN #20 tablet PRN Reason: Nausea/Vomiting Instructions: Chronic Pancreatitis Follow up with: TI FERMIN DO [ACTIVE STAFF] - 06/08/23 9:30 am
== END 2023-05-25 13:55 | disposition home or self-care (01) | DRG 304 ==
LOC: ED 08:56 → MED SURG 11:28
PROVIDERS: ADMIT Internal Medicine; ATTEND Internal Medicine
DX: I10 Essential (primary) hypertension (principal); K85.90 Acute pancreatitis without necrosis or infection, unspecified; K21.9 Gastro-esophageal reflux disease without esophagitis; Z86.73 Personal history of transient ischemic attack (TIA), and cerebral infarction without residual deficits; I25.10 Atherosclerotic heart disease of native coronary artery without angina pectoris; E78.5 Hyperlipidemia, unspecified; J45.909 Unspecified asthma, uncomplicated; R11.10 Vomiting, unspecified; F17.200 Nicotine dependence, unspecified, uncomplicated; F10.90 Alcohol use, unspecified, uncomplicated; G47.34 Idiopathic sleep related nonobstructive alveolar hypoventilation; R06.83 Snoring; Z79.01 Long term (current) use of anticoagulants; Z79.899 Other long term (current) drug therapy
CPT/HCPCS: 36000; 36415; 74176; 80053; 80061; 81001; 82077; 82150; 83605; 83690; 83721; 83880; 85025; 94762; 96360; 96374; 96375; 96376; 99285; J0360; J1170; J2405; Q3014; A9270-GY

== ENCOUNTER 2023-08-19 03:38 | Observation (INO) | payer OTHER ==
[2023-08-19] MEDS ORDERED: Hydromorphone 1 mg/ml Injection IV ONE ×3 (03:53→07:25)
[2023-08-19] MEDS ORDERED: Zofran 4 MG/2 ML VIAL IV ONE (03:53)
[2023-08-19] MEDS ORDERED: Sodium Chloride 0.9% 1000 ML 1,000 ML IV STA (03:53)
--- NOTE | 2023-08-19 04:04 | ERPHSYRPT ---
- History of Present Illness Historian: patient Exam Limitations: no limitations Patient Subjective Stated Complaint: pt states that when he went to bed at midnight last night he felt fine and didn't have any pain. states he woke up at 0230 with excruciating pain throughout his abdomen that per his report "feels like my chronic pancreatitis". pt states he is nauseated but hasn't vomited and that he took a hydrocodone for the pain at 0300 Triage Nursing Assessment: pt brought into room 6 via EMS stretcher and was able to stand, pivot, and walk to ED bed inpendently with slow steady gait. pt is alert and oriented times three, able to move all extremities, able to speak in complete sentences, and with resp even and unlabored. abd soft, round, and slightly distended with positive bowel sounds in all 4 quadrants. pt states his last BM was approx 0230 this am. reports that he is nauseated. denies cp, indigestion, rodriguez, lightheadedness, dizziness, change in appetite, difficulty with urination or bowel elimination, sob, difficulty breathing. skin warm, dry, pink, and intact. Timing/Duration: today Activities at Onset: none Quality: sharpness Abdominal Pain Onset Location: RUQ, epigastric Pain Radiation: no radiation Severity of Pain-Max: moderate Severity of Pain-Current: moderate Modifying Factors: Improves With: nothing Associated Symptoms: denies symptoms Previous symptoms: same symptoms as today Body Map: 1 - TTP RUQ and epigastrum Hx Tetanus, Diphtheria Vaccination/Date Given: No Hx Influenza Vaccination/Date Given: No Hx Pneumococcal Vaccination/Date Given: No Immunizations Up to Date: No <Gianni Argueta - Last Filed: 08/19/23 06:24> <WESLEY PRIETO - Last Filed: 08/19/23 08:35> - History of Present Illness Time Seen by Provider: 08/19/23 03:50 Physician History: 53yo m w/ pmhx chronic pancreatitis presents w/ complaints of abdominal pain. Pt reports his pain is worse in the RUQ and epigastric region. Pt states the pain started 2hrs ago and has been worsening since, despite taking a norco. Pt also endorses nausea but denies any vomiting, cp, soa, diarrhea. Pt reports last BM was 3hrs ago. Pt states he drank 4-5 beers today, denies eating greasy/fatty foods. Pt reports this feels like his like flare of pancreatitis. (Gianni Argueta) Allergies/Adverse Reactions: No Known Drug Allergies Allergy (Verified 08/19/23 03:40) Home Medications: Clopidogrel Bisulfate [Plavix] 75 mg PO DAILY 04/15/21 [History] Omeprazole Magnesium [Prilosec Otc] 20 mg PO DAILY 04/15/21 [History] Amlodipine Besylate 5 mg PO DAILY 10/02/22 [History] Losartan Potassium 50 mg [Cozaar 50 MG] 50 mg PO DAILY 10/02/22 [History] Metoprolol Succinate 25 mg Xl* [Toprol-Xl 25MG Tablets] 25 mg PO DAILY 10/02/22 [History] Travel Risk - International Travel Have you traveled outside of the country in past 3 weeks: No - Coronavirus Screening Are you exhibiting any of the following symptoms?: No Close contact with a COVID-19 positive Pt in past 14-21 Days: No - Vaccine Status Have you recieved a Covid-19 vaccination: No <Gianni Argueta - Last Filed: 08/19/23 06:24> - Review of Systems Constitutional: No Fever, No Chills Respiratory: No Cough, No Dyspnea Cardiac: No Chest Pain, No Edema, No Syncope Abdominal/Gastrointestinal: Abdominal Pain, Nausea Genitourinary Symptoms: No Dysuria Neurological: No Dizziness, No Focal Weakness, No Sensory Changes <Gianni Argueta - Last Filed: 08/19/23 06:24> - Past Medical History Pertinent Past Medical History: Yes Neurological History: TIA ENT History: No Pertinent History Cardiac History: Coronary Artery Disease, High Cholesterol, Hypertension Respiratory History: Asthma Endocrine Medical History: No Pertinent History Musculoskeletal History: Arthritis GI Medical History: GERD, Pancreatitis History: No Pertinent History Psycho-Social History: No Pertinent History Male Reproductive Disorders: No Pertinent History Other Medical History: Patient reported - Past Surgical History Past Surgical History: Yes Neuro Surgical History: No Pertinent History Cardiac: No Pertinent History Respiratory: No Pertinent History Gastrointestinal: No Pertinent History Genitourinary: No Pertinent History Musculoskeletal: No Pertinent History Male Surgical History: Vasectomy - Social History Smoking Status: Current every day smoker How long have you smoked: 30 Exposure to second hand smoke: No Drug Use: none Patient Lives Alone: No Significant Family History: no pertinent family hx <Gianni Argueta - Last Filed: 08/19/23 06:24> - Physical Exam General Appearance: no apparent distress, alert Respiratory Exam: normal breath sounds, lungs clear, No respiratory distress Cardiovascular Exam: regular rate/rhythm, normal heart sounds Gastrointestinal/Abdomen Exam: other (TTP in RUQ and epigastrum, guarding appreciated diffusely, no rebound tenderness, no distention) Neurologic Exam: alert, oriented x 3, cooperative, normal mood/affect, No motor deficits SpO2 Interpretation: normal SpO2: 94 O2 Delivery: Room Air <Gianni Argueta - Last Filed: 08/19/23 06:24> - Nursing Vital Signs Nursing Vital Signs: Initial Vital Signs Temperature 97.1 F 08/19/23 03:40 Pulse Rate 57 L 08/19/23 03:40 Respiratory Rate 15 08/19/23 03:40 Blood Pressure 110/68 08/19/23 03:40 O2 Sat by Pulse Oximetry 95 08/19/23 03:40 Pain Scale Pain Intensity 9 Procedures <Gianni Argueta - Last Filed: 08/19/23 06:24> - Ultrasound Progress: POC US used by me to place 18gauge catheter in superior brachial vein 2/2 inability to obtain peripheral IV access w/o US (Gianni Argueta) - Course Nursing assessment & vital signs reviewed: Yes EKG Interpreted by Me: RATE ([id number]), NORMAL AXIS, NORMAL INTERVALS, NORMAL ST-T <Gianni Argueta - Last Filed: 08/19/23 06:24> - CT Exams Abdomen/Pelvis CT Interpretation: Tele-radiologist Report (signs of acute pancreatitis, thickened adrenal gland) <WESLEY PRIETO - Last Filed: 08/19/23 08:35> Ordered Tests: Active Orders 24 hr Category Date Time Status Call Admit Doctor for Orders ON ADMISSION Care 08/19/23 08:30 Ordered Code Status Order ROUTINE Care 08/19/23 08:30 Ordered EKG-ER Only STAT Care 08/19/23 03:53 Completed IV Insertion STAT Care 08/19/23 03:[address] in Observation ROUTINE Care 08/19/23 08:30 Ordered NPO Diet 08/19/23 08:30 Ordered ABDOMEN AND PELVIS W CONTRAST [CT] Stat Exams 08/19/23 03:54 Completed CBC W DIFF Stat Lab 08/19/23 05:39 Completed CMP Stat Lab 08/19/23 05:28 Completed LIPASE Stat Lab 08/19/23 05:28 Completed TROPONIN Q4H Lab 08/19/23 05:28 Completed TROPONIN Q4H Lab 08/19/23 08:20 Received TROPONIN Q4H Lab 08/19/23 12:30 Ordered Transfer Order Routine Transfer 08/19/23 Completed Medication Summary Discontinued Medications Generic Name Dose Route Start Last Admin Trade Name Freq PRN Reason Stop Dose Admin Hydromorphone HCl 0.5 mg 08/19/23 03:53 08/19/23 05:17 Hydromorphone 1 Mg/1ml Inj IV 08/19/23 03:54 Not Given STAT ONE Hydromorphone HCl 1 mg 08/19/23 05:13 08/19/23 05:30 Hydromorphone 1 Mg/1ml Inj IV 08/19/23 05:14 Not Given STAT ONE Hydromorphone HCl Confirm 08/19/23 05:18 Hydromorphone 1 Mg/1ml Inj Administered 08/19/23 05:19 Dose 1 mg .ROUTE .STK-MED ONE Hydromorphone HCl 2 mg 08/19/23 05:26 08/19/23 05:33 Hydromorphone 1 Mg/1ml Inj IM 08/19/23 05:27 2 mg STAT ONE Administration Hydromorphone HCl Confirm 08/19/23 05:31 Hydromorphone 1 Mg/1ml Inj Administered 08/19/23 05:32 Dose 1 mg .ROUTE .STK-MED ONE Hydromorphone HCl 2 mg 08/19/23 07:25 08/19/23 07:33 Hydromorphone 1 Mg/1ml Inj IV 08/19/23 07:26 2 mg STAT ONE Administration Hydromorphone HCl Confirm 08/19/23 07:28 Hydromorphone 1 Mg/1ml Inj Administered 08/19/23 07:29 Dose 2 mg .ROUTE .STK-MED ONE Sodium Chloride 1,000 mls @ 999 mls/hr 08/19/23 03:53 08/19/23 04:00 Sodium Chloride 0.9% 1000 Ml IV 08/19/23 04:53 Not Given .Q1H1M STA Lactated Ringer's 1,000 mls @ 999 mls/hr 08/19/23 07:17 08/19/23 07:24 Lactated Ringers IV 08/19/23 08:17 999 mls/hr .Q1H1M ONE Administration Lactated Ringer's Confirm 08/19/23 07:24 Lactated Ringers Administered 08/19/23 07:25 Dose 1,000 mls @ ud IV .STK-MED ONE Lidocaine HCl Confirm 08/19/23 07:03 Lidocaine - Mpf 2% 5 Ml Vial Administered 08/19/23 07:04 Dose 5 ml .ROUTE .STK-MED ONE Ondansetron HCl 4 mg 08/19/23 03:53 08/19/23 05:29 Ondansetron Hcl 4 Mg/2 Ml Vial IV 08/19/23 03:54 Not Given STAT ONE Ondansetron HCl Confirm 08/19/23 05:18 Ondansetron Hcl 4 Mg/2 Ml Vial Administered 08/19/23 05:19 Dose 4 mg .ROUTE .STK-MED ONE Ondansetron HCl 4 mg 08/19/23 05:26 08/19/23 05:32 Zofran 4 Mg/Udtablet Orally Disintegrating PO 08/19/23 05:27 4 mg STAT ONE Administration Ondansetron HCl Confirm 08/19/23 05:31 Zofran 4 Mg/Udtablet Orally Disintegrating Administered 08/19/23 05:32 Dose 4 mg .ROUTE .STK-MED ONE Lab/Rad Data: Laboratory Result Diagrams 08/19/23 05:39 08/19/23 05:28 Laboratory Results 08/19/23 08/19/23 08/19/23 Range/Units 05:39 05:28 05:28 WBC 10.9 H (4.0-10.5) x10^3/uL RBC 4.83 (4.1-5.6) x10^6/uL Hgb 13.5 (12.5-18.0) g/dL Hct 41.4 L (42-50) % MCV 85.7 (78-100) fL MCH 28.0 (26-32) pg MCHC 32.6 (32-36) g/dL RDW 14.3 H (11.5-14.0) % Plt Count 230 (150-450) x10^3/uL MPV 8.9 (7.5-11.0) fL Gran % 73.9 H (36.0-66.0) % Immature Gran % (Auto) 0.5 H (0.00-0.4) % Nucleat RBC Rel Count 0.0 (0.00-0.1) % Eos # (Auto) 0.20 (0-0.5) x10^3/uL Immature Gran # (Auto) 0.05 H (0.00-0.03) x10^3u/L Absolute Lymphs (auto) 1.68 (1.0-4.6) x10^3/uL Absolute Monos (auto) 0.87 (0.0-1.3) x10^3/uL Absolute Nucleated RBC 0.00 (0.00-0.01) x10^3u/L Lymphocytes % 15.4 L (24.0-44.0) % Monocytes % 8.0 (0.0-12.0) % Eosinophils % 1.8 (0.00-5.0) % Basophils % 0.4 (0.0-0.4) % Absolute Granulocytes 8.10 H (1.4-6.9) x10^3/uL Basophils # 0.04 (0-0.4) x10^3/uL Sodium 128 L (137-145) mmol/L Potassium 3.9 (3.5-5.1) mmol/L Chloride 100 (98-107) mmol/L Carbon Dioxide 17 L (22-30) mmol/L Anion Gap 15.1 H (5-15) MEQ/L BUN 6 L (9-20) mg/dL Creatinine 0.56 L (0.66-1.25) mg/dL Estimated GFR > 60.0 ML/MIN Glucose 116 H (74-106) mg/dL Calcium 8.2 L (8.4-10.2) mg/dL Total Bilirubin 0.40 (0.2-1.3) mg/dL AST 41 (17-59) U/L ALT 22 (0-50) U/L Alkaline Phosphatase 65 (38-126) U/L Troponin I < 0.012 (0.000-0.034) ng/mL Serum Total Protein 7.0 (6.3-8.2) g/dL Albumin 3.9 (3.5-5.0) g/dL Lipase 4633 H (23-300) U/L <Gianni Argueta - Last Filed: 08/19/23 06:24> - Progress Discussed with DrAlfred: Inga Will see patient in: hospital (observation) Counseled pt/family regarding: lab results, diagnosis, rad results <WESLEY PRIETO - Last Filed: 08/19/23 08:35> - Progress Progress Note: 08/19/23 05:17 nursing staff unable to obtain IV access I was able to place 18gauge catheter in brachial vein using US guidance 08/19/23 06:24 IV access lost, anesthesia called for midline placement labs were able to be drawn, zofran given sublingual, dilaudid 2mg given IM still awaiting IV access for CT w/contrast (Gianni Argueta) Assumed care from Dr. Argueta at 0700. Anesthesia was called in to place a midline which was successfully placed just after my arrival. Patient will go for CT abd/pelvis w/ contrast. IVF and pain medications will be given. Once CT results decision will be made on in house admission vs transfer. CT scan shows signs of acute pancreatitis. Dr. Haddad accepts for admission at 0824. (WESLEY PRIETO) Medical Desision Making - Discussion of managment Care discussed with:: hospitalist Reviewed:: Test results Agreed on:: Treatment plan, place in obs Will see patient: in hospital - Diagnostic Testing Diagnostic test were ordered, analyzed, and reviewed by me: Yes Radiological Interpretation: Interpreted by me, Reviewed by me, Teleradiologist Report - Risk of complications The pt has a mod risk of morbidity or mortality based on: Need for prescription drug management The pt has a high risk of morbidity or mortality based on: Decision regarding hospitilization or escalation of hosp level of care <WESLEY PRIETO - Last Filed: 08/19/23 08:35> <Gianni Argueta - Last Filed: 08/19/23 06:24> - Departure Departure Disposition: Observation Critical Care Time: No <WESLEY PRIETO - Last Filed: 08/19/23 08:35> - Departure Clinical Impression: Pancreatitis, Alcohol use, Oxygen desaturation during sleep, Loud snoring, Nausea and vomiting, Intractable abdominal pain Condition: Good Referrals: HOSPITAL,'S [Primary Care Provider] - Follow up/PCP as directed Instructions: Acute pancreatitis
[2023-08-19] MEDS ORDERED: Zofran 4 MG/2 ML VIAL ONE (05:18)
[2023-08-19] MEDS ORDERED: Hydromorphone 1 mg/ml Injection ONE ×3 (05:18→07:28)
[2023-08-19] MEDS ORDERED: ZOFRAN ODT 4 MG PO ONE (05:26)
[2023-08-19] MEDS ORDERED: Hydromorphone 1 mg/ml Injection IM ONE (05:26)
[2023-08-19] MEDS ORDERED: ZOFRAN ODT 4 MG ONE (05:31)
[2023-08-19 05:36] LABS: ALBUMIN 3.9 g/dL (3.5-5.0); ALKALINE PHOSPHATASE 65 U/L (38-126); ANION GAP 15.1 MEQ/L (5-15); BLOOD UREA NITROGEN 6 mg/dL (9-20); CHLORIDE 100 mmol/L (98-107); Calcium 8.2 mg/dL (8.4-10.2); Carbon Dioxide 17 mmol/L (22-30); Creatinine 1 0.56 mg/dL (0.66-1.25); EST GLOMERULAR FILTRATION RATE > 60.0 ML/MIN; Glucose 116 mg/dL (74-106); Potassium 3.9 mmol/L (3.5-5.1); SGOT/AST 41 U/L (17-59); SGPT/ALT 22 U/L (0-50); SODIUM 128 mmol/L (137-145)
[2023-08-19 05:40] LABS: BASOPHIL % 0.4 % (0.0-0.4); Basophil (Absolute #) 0.04 x10^3/uL (0-0.4); Eosinophil % 1.8 % (0.00-5.0); Hematocrit 41.4 % (42-50); Hemoglobin 13.5 g/dL (12.5-18.0); IMMATURE GRAN # 0.05 x10^3u/L (0.00-0.03); IMMATURE GRAN % 0.5 % (0.00-0.4); Lymphocyte (Absolute #) 1.68 x10^3/uL (1.0-4.6); Lymphocytes % 15.4 % (24.0-44.0); Mean Cell Volume 85.7 fL (78-100); Mean Corpuscular Hgb Concent. 32.6 g/dL (32-36); Mean Platelet Volume 8.9 fL (7.5-11.0); Monocyte (Absolute #) 0.87 x10^3/uL (0.0-1.3); Neutrophil % 73.9 % (36.0-66.0); Platelet Count 230 x10^3/uL (150-450); Red Blood Count 4.83 x10^6/uL (4.1-5.6); Red Cell Distribution Width 14.3 % (11.5-14.0); White Blood Count 10.9 x10^3/uL (4.0-10.5)
[2023-08-19 05:53] LABS: LIPASE 4633 U/L (23-300)
[2023-08-19] MEDS ORDERED: Xylocaine-Mpf 2% 5 Ml Vial ONE (07:03)
[2023-08-19] MEDS ORDERED: Lactated Ringers 1,000 ML IV ONE ×2 (07:17→07:24)
--- NOTE | 2023-08-19 08:12 | XRAY ---
CLINICAL HISTORY:abdominal pain COMPARISON:CT dated 05/24/2023. TECHNIQUE:CT of the abdomen and pelvis was performed in axial plane with sagittal and coronal reconstructed images with intravenous contrast administration. FINDINGS: Compared to the previous study there is mild regression of the previous noted peripancreatic severe fat stranding with residual mild to moderate fat stranding surrounding the head of the pancreas and mild wall thickening of the duodenum. Regressed multiple junito pancreatic lymph nodes are seen , largest is seen medial and inferior to the head and measures 2.5x2 cm compared with 4.5 x 3.5 cm on the prior study , the pancreatic duct is prominent and reaches 4 mm. The visualized lung bases appear unremarkable. Normal size of the liver reflecting diffuse hypodensity suggestive of fatty infiltration, no intrahepatic or extrahepatic bile duct dilation. Unremarkable appearing gallbladder with no stones, wall thickening or pericholecystic inflammatory changes or fluid. Unremarkable appearing spleen. Thickening of the medial limb of the left adrenal gland, would recommend CT with adrenal protocol for further evaluation. The kidneys appear unremarkable with no stones, cysts masses, or hydronephrosis. Perinephric fat stranding is seen , likely related to prior infilammatory process. The ureters are normal with no stones. Unremarkable abdominal aorta without specific evidence of aneurysm or dissection. IVC is normal. The visualized distal esophagus appears unremarkable. The stomach appears unremarkable. Small bowel and colon are non-distended with no abnormality. No free air and no ascites. No free intraperitoneal air is seen. Bladder is unremarkable with no stones. No abdominal wall pathology is seen. Vertebral spondylitic changes. IMPRESSION: Compared to the previous study there is regression in pancreatitis with residual fat stranding around the head of pancreas and mild wall thickening of the duodenum. Regressed peripancreatic lymph nodes , findings could represent reactivation of acute pancreatitis versus regression of prior process, correlation with pancreatic enzymes and clinical correlation is advised. Hepatic steatosis. Thickening of the medial limb of the left adrenal gland, would recommend CT with adrenal protocol for further evaluation. The [facility] ER was called at [phone] at 07:06 AM C[employer] STOCK CLERK, 08/19/2023 and the results are verbally communicated with Dr. Mack. Electronically Signed by: Keshia Conklin MD. (08/19/2023 07:10:21 C[employer]IER [employer] CHECK[employer] STOCK CLERK)
[2023-08-19] MEDS ORDERED: Zofran 4 MG/2 ML VIAL IV PRN (09:14)
[2023-08-19] MEDS ORDERED: VALIUM 10 MG/2 ML SYRINGE IV PRN (09:17)
[2023-08-19] MEDS ORDERED: Calcium Gluconate 10% 1000 MG 1,000 MG in Sodium Chloride 0.9% 100 ML IV ONE (09:30)
[2023-08-19 09:46] LABS: MAGNESIUM 1.7 mg/dL (1.6-2.3)
[2023-08-19] MEDS: PROTONIX 40 MG IV IV SCH (09:57)
[2023-08-19] MEDS: THERAGRAN MULTIVITAMIN PO SCH (10:00)
[2023-08-19] MEDS: FOLATE 1 MG PO SCH (10:00)
[2023-08-19] MEDS: VITAMIN B-1 100 MG PO SCH (10:00)
[2023-08-19] MEDS: Lactated Ringers 1,000 ML IV SCH ×4 (10:02→22:21)
[2023-08-19] MEDS ORDERED: TYLENOL 325 MG PO PRN (10:13)
[2023-08-19] MEDS: Nicoderm CQ 21 MG TOP SCH (10:15)
[2023-08-19] MEDS: NORVASC 5 MG PO SCH (10:44)
[2023-08-19] MEDS: PLAVIX Tablet PO SCH (10:45)
[2023-08-19] MEDS: Cozaar 50 MG PO SCH (10:45)
[2023-08-19] MEDS: Toprol-Xl 25MG Tablets PO SCH (10:45)
[2023-08-19] MEDS: Hydromorphone 1 mg/ml Injection IV PRN ×3 (11:43→20:21)
--- NOTE | 2023-08-19 12:52 | PCM.HP ---
History of Present Illness - Chief Complaint Chief Complaint: Pancreatitis Date: 08/19/23 History of Present Illness: Mr.LEWIS WALLACE is a 53 year old male with PMHX of TIA, CAD, hyperlipidemia, HTN, OA, GERD, Pancreatitis, daily smoker, and social drinker. Pt cme into Er today for further evaluation of abd. pain. Pt reports his pain is worse in the RUQ, RLQ and epigastric region. Pt states the pain started 2hrs prior to coming in and has been worsening since, despite taking a norco. Pt also endorses nausea but denies any vomiting, cp, soa, diarrhea. Pt reports last BM was 3hrs ago. Pt states he drank 4-5 beers today, denies eating greasy/fatty foods. Pt reports th is feels like his like flare of pancreatitis. Pt states his last BM was approx 0230 this am. In the ER he was given dilaudid, zofran, and IVF bolus. Will cOntinue meds and LR at 250 ml/hr. Pt NPO except meds. Will start nicotine patch. - Review of Systems Constitutional: No Fever, No Chills Eyes: No Symptoms Ears, Nose, & Throat: No Symptoms Respiratory: No Cough, No Short Of Breath Cardiac: No Chest Pain, No Edema, No Syncope Abdominal/Gastrointestinal: Abdominal Pain (RUQ, RLQ and epigastric regions), Nausea, No Vomiting, No Diarrhea Genitourinary Symptoms: No Dysuria Musculoskeletal: No Back Pain, No Neck Pain Skin: No Rash Neurological: No Dizziness, No Focal Weakness, No Sensory Changes Psychological: No Symptoms Endocrine: No Symptoms Hematologic/Lymphatic: No Symptoms Immunological/Allergic: No Symptoms Medications & Allergies Home Medications: Home Medication List Clopidogrel Bisulfate [Plavix] 75 mg PO DAILY 04/15/21 [History Confirmed 08/19/23] Omeprazole Magnesium [Prilosec Otc] 20 mg PO DAILY 04/15/21 [History Confirmed 08/19/23] Amlodipine Besylate 5 mg PO DAILY 10/02/22 [History Confirmed 08/19/23] Losartan Potassium 50 mg [Cozaar 50 MG] 50 mg PO DAILY 10/02/22 [History Confirmed 08/19/23] Metoprolol Succinate 25 mg Xl* [Toprol-Xl 25MG Tablets] 50 mg PO DAILY 10/02/22 [History Confirmed 08/19/23] Acetaminophen 325 mg [Tylenol 325 mg] 650 mg PO Q4H PRN PRN tablet 10/03/22 [Rx Confirmed 08/19/23] Allergies/Adverse Reactions: Allergies Allergy/AdvReac Type Severity Reaction Status Date / Time No Known Drug Allergies Allergy Verified 08/19/23 03:40 - Past Medical History Past Medical History: Yes Neurological History: TIA ENT History: No Pertinent History Cardiac History: Coronary Artery Disease, High Cholesterol, Hypertension Respiratory History: Asthma Endocrine Medical History: No Pertinent History Musculoskelatal History: Arthritis GI Medical History: GERD, Pancreatitis History: No Pertinent History Pyscho-Social History: Other Male Reproductive Disorders: No Pertinent History Comment: PTSD - Past Surgical History Past Surgical History: Yes Neuro Surgical History: No Pertinent History Cardiac History: No Pertinent History Respiratory Surgery: No Pertinent History GI Surgical History: No Pertinent History Genitourinary Surgical Hx: No Pertinent History Musculskeletal Surgical Hx: No Pertinent History Male Surgical History: Vasectomy - Social History Smoking Status: Current every day smoker How long have you smoked: 30+ Exposure to second hand smoke: No Alcohol: Occasionally Drug Use: none Significant Family History: no pertinent family hx - Physical Exam Vital Signs: Vital Signs - 24 hr Temp Pulse Resp BP BP Pulse Ox 08/19/23 12:00 16 08/19/23 11:41 97.3 F 75 16 137/74 97 08/19/23 09:17 68 08/19/23 09:14 97.6 F 71 16 146/70 88 L 08/19/23 08:55 97.6 F 71 16 146/70 96 08/19/23 08:02 130/78 96 08/19/23 08:00 76 20 130/78 96 08/19/23 07:01 67 11 L 94 L 08/19/23 06:30 68 12 107/61 94 L 08/19/23 06:25 94 L 08/19/23 06:00 71 15 103/66 92 L 08/19/23 05:45 65 14 109/61 94 L 08/19/23 04:00 64 27 H 96/64 98 08/19/23 03:46 61 17 110/68 94 L 08/19/23 03:40 97.1 F 57 L 15 110/68 95 General Appearance: no apparent distress, alert Neurologic Exam: alert, oriented x 3, cooperative, normal mood/affect, nml cerebellar function, nml station & gait, sensation nml, No motor deficits Eye Exam: PERRL/EOMI, eyes nml inspection Ears, Nose, Throat Exam: normal ENT inspection, TMs normal, pharynx normal, moist mucous membranes Neck Exam: normal inspection, non-tender, supple, full range of motion Respiratory Exam: normal breath sounds, lungs clear, No respiratory distress Cardiovascular Exam: regular rate/rhythm, normal heart sounds, normal peripheral pulses Gastrointestinal/Abdomen Exam: soft, normal bowel sounds, tenderness (RUQ, RLQ, and epigastric regions iwth palpation), No mass Back Exam: normal inspection, normal range of motion, No CVA tenderness, No vertebral tenderness Extremity Exam: normal inspection, normal range of motion, pelvis stable Skin Exam: normal color, warm, dry, No rash Lymphatic Exam: No adenopathy Results - Labs Lab/Micro Results: Lab Results-Last 24 Hours 08/19/23 08/19/23 08/19/23 Range/Units 05:28 05:28 05:39 WBC 10.9 H (4.0-10.5) x10^3/uL RBC 4.83 (4.1-5.6) x10^6/uL Hgb 13.5 (12.5-18.0) g/dL Hct 41.4 L (42-50) % MCV 85.7 (78-100) fL MCH 28.0 (26-32) pg MCHC 32.6 (32-36) g/dL RDW 14.3 H (11.5-14.0) % Plt Count 230 (150-450) x10^3/uL MPV 8.9 (7.5-11.0) fL Gran % 73.9 H (36.0-66.0) % Immature Gran % (Auto) 0.5 H (0.00-0.4) % Nucleat RBC Rel Count 0.0 (0.00-0.1) % Eos # (Auto) 0.20 (0-0.5) x10^3/uL Immature Gran # (Auto) 0.05 H (0.00-0.03) x10^3u/L Absolute Lymphs (auto) 1.68 (1.0-4.6) x10^3/uL Absolute Monos (auto) 0.87 (0.0-1.3) x10^3/uL Absolute Nucleated RBC 0.00 (0.00-0.01) x10^3u/L Lymphocytes % 15.4 L (24.0-44.0) % Monocytes % 8.0 (0.0-12.0) % Eosinophils % 1.8 (0.00-5.0) % Basophils % 0.4 (0.0-0.4) % Absolute Granulocytes 8.10 H (1.4-6.9) x10^3/uL Basophils # 0.04 (0-0.4) x10^3/uL Sodium 128 L (137-145) mmol/L Potassium 3.9 (3.5-5.1) mmol/L Chloride 100 (98-107) mmol/L Carbon Dioxide 17 L (22-30) mmol/L Anion Gap 15.1 H (5-15) MEQ/L BUN 6 L (9-20) mg/dL Creatinine 0.56 L (0.66-1.25) mg/dL Estimated GFR > 60.0 ML/MIN Glucose 116 H (74-106) mg/dL Calcium 8.2 L (8.4-10.2) mg/dL Magnesium (1.6-2.3) mg/dL Total Bilirubin 0.40 (0.2-1.3) mg/dL AST 41 (17-59) U/L ALT 22 (0-50) U/L Alkaline Phosphatase 65 (38-126) U/L Troponin I < 0.012 (0.000-0.034) ng/mL Serum Total Protein 7.0 (6.3-8.2) g/dL Albumin 3.9 (3.5-5.0) g/dL Lipase 4633 H (23-300) U/L Ethyl Alcohol (0-10) mg/dL 08/19/23 08/19/23 Range/Units 08:20 08:20 WBC (4.0-10.5) x10^3/uL RBC (4.1-5.6) x10^6/uL Hgb (12.5-18.0) g/dL Hct (42-50) % MCV (78-100) fL MCH (26-32) pg MCHC (32-36) g/dL RDW (11.5-14.0) % Plt Count (150-450) x10^3/uL MPV (7.5-11.0) fL Gran % (36.0-66.0) % Immature Gran % (Auto) (0.00-0.4) % Nucleat RBC Rel Count (0.00-0.1) % Eos # (Auto) (0-0.5) x10^3/uL Immature Gran # (Auto) (0.00-0.03) x10^3u/L Absolute Lymphs (auto) (1.0-4.6) x10^3/uL Absolute Monos (auto) (0.0-1.3) x10^3/uL Absolute Nucleated RBC (0.00-0.01) x10^3u/L Lymphocytes % (24.0-44.0) % Monocytes % (0.0-12.0) % Eosinophils % (0.00-5.0) % Basophils % (0.0-0.4) % Absolute Granulocytes (1.4-6.9) x10^3/uL Basophils # (0-0.4) x10^3/uL Sodium (137-145) mmol/L Potassium (3.5-5.1) mmol/L Chloride (98-107) mmol/L Carbon Dioxide (22-30) mmol/L Anion Gap (5-15) MEQ/L BUN (9-20) mg/dL Creatinine (0.66-1.25) mg/dL Estimated GFR ML/MIN Glucose (74-106) mg/dL Calcium (8.4-10.2) mg/dL Magnesium 1.7 (1.6-2.3) mg/dL Total Bilirubin (0.2-1.3) mg/dL AST (17-59) U/L ALT (0-50) U/L Alkaline Phosphatase (38-126) U/L Troponin I < 0.012 (0.000-0.034) ng/mL Serum Total Protein (6.3-8.2) g/dL Albumin (3.5-5.0) g/dL Lipase (23-300) U/L Ethyl Alcohol 46 H (0-10) mg/dL - Radiology Impressions Radiology Exams & Impressions: Radiology Procedures Category Date Time Status ABDOMEN AND PELVIS W CONTRAST [CT] Stat Exams 08/19/23 03:54 Completed Assessment/Plan (1) Pancreatitis Current Visit: Yes Status: Acute Assessment & Plan: - LR at 250ml/hr - NPO - Dialudid for pain, zofran for nausea - Pt follows at the [facility], explained he will need OP f/u with GI at [facility] Code(s): K85.90 - ACUTE PANCREATITIS WITHOUT NECROSIS OR INFECTION, UNSP (2) Alcohol intoxication Current Visit: No Status: Acute Assessment & Plan: - advised cessation - lab confirms, and pt admits to ETOH use - alcohol withdrawal protocol (3) Oxygen desaturation during sleep Current Visit: Yes Status: Chronic Assessment & Plan: -2LNC Code(s): G47.34 - IDIO SLEEP RELATED NONOBSTRUCTIVE ALVEOLAR HYPOVENTILATION (4) GERD (gastroesophageal reflux disease) Current Visit: No Status: Chronic Assessment & Plan: - Continue protonix Code(s): K21.9 - GASTRO-ESOPHAGEAL REFLUX DISEASE WITHOUT ESOPHAGITIS (5) HTN (hypertension) Current Visit: No Status: Chronic Qualifiers: Hypertension type: primary hypertension Qualified Code(s): I10 - Essential (primary) hypertension Assessment & Plan: - stable- continue home meds Code(s): I10 - ESSENTIAL (PRIMARY) HYPERTENSION (6) History of TIA (transient ischemic attack) Current Visit: No Status: Chronic Assessment & Plan: - Continue plavix Code(s): Z86.73 - PRSNL HX OF TIA (TIA), AND CEREB INFRC W/O RESID DEFICITS (7) Hyperlipidemia Current Visit: No Status: Chronic Assessment & Plan: - continue statin Code(s): E78.5 - HYPERLIPIDEMIA, UNSPECIFIED (8) Tobacco dependence Current Visit: No Status: Chronic Assessment & Plan: - advised cessation - nicotine patch PPI: Protonix Code status: Full Next of Kin: Spouse, Debora Trotter, Code(s): F17.200 - NICOTINE DEPENDENCE, UNSPECIFIED, UNCOMPLICATED
[2023-08-20] MEDS: Hydromorphone 1 mg/ml Injection IV PRN (00:39)
[2023-08-20] MEDS ORDERED: Lactated Ringers 1,000 ML IV ONE (02:27)
[2023-08-20] MEDS: Lactated Ringers 1,000 ML IV SCH ×3 (02:44→09:40)
[2023-08-20 05:20] LABS: Risk Ratio 4.5
--- NOTE | 2023-08-20 05:35 | PCM.NOTE ---
Date and Time: 08/20/23532 Subjective Assessment: HPI: Mr.LEWIS WALLACE is a 53 year old male with PMHX of TIA, CAD, hyperlipidemia, HTN, OA, GERD, Pancreatitis, daily smoker, and social drinker. Pt cme into Er today for further evaluation of abd. pain. Pt reports his pain is worse in the RUQ, RLQ and epigastric region. Pt states the pain started 2hrs prior to coming in and has been worsening since, despite taking a norco. Pt also endorses nausea but denies any vomiting, cp, soa, diarrhea. Pt reports last BM was 3hrs ago. Pt states he drank 4-5 beers today, denies eating greasy/fatty foods. Pt reports this feels like his like flare of pancreatitis. Pt states his last BM was approx 0230 this am. In the ER he was given dilaudid, zofran, and IVF bolus. Will cOntinue meds and LR at 250 ml/hr. Pt NPO except meds. Will start nicotine patch. 08/20: OBJECTIVE DATA Vital Signs: Vital Signs - 24 hr Temp Pulse Resp BP BP Pulse Ox 08/20/23 04:00 99.8 F 89 17 134/79 96 08/20/23 00:15 99 F 84 18 155/95 97 08/20/23 00:00 99 F 84 18 155/95 97 08/19/23 20:00 97.7 F 80 18 120/66 95 08/19/23 19:45 96 08/19/23 16:00 97.7 F 85 16 134/79 93 L 08/19/23 15:32 96 08/19/23 12:00 16 08/19/23 11:41 97.3 F 75 16 137/74 97 08/19/23 09:17 68 08/19/23 09:14 97.6 F 71 16 146/70 88 L 08/19/23 08:55 97.6 F 71 16 146/70 96 08/19/23 08:02 130/78 96 08/19/23 08:00 76 20 130/78 96 08/19/23 07:01 67 11 L 94 L 08/19/23 06:30 68 12 107/61 94 L 08/19/23 06:25 94 L 08/19/23 06:00 71 15 103/66 92 L 08/19/23 05:45 65 14 109/61 94 L Pain Assessment - Last Documented Pain Intensity 0 Pain Scale Used [facility] Intake and Output: Intake & Output 08/17/23 08/18/23 08/19/23 08/20/23 11:59 11:59 11:59 11:59 Intake Total 0 1599 Balance 0 1599 Weight 92.5 kg Lab Results: Lab Results-Last 24 Hours 08/19/23 08/19/23 08/19/23 Range/Units 05:28 05:28 05:39 WBC 10.9 H (4.0-10.5) x10^3/uL RBC 4.83 (4.1-5.6) x10^6/uL Hgb 13.5 (12.5-18.0) g/dL Hct 41.4 L (42-50) % MCV 85.7 (78-100) fL MCH 28.0 (26-32) pg MCHC 32.6 (32-36) g/dL RDW 14.3 H (11.5-14.0) % Plt Count 230 (150-450) x10^3/uL MPV 8.9 (7.5-11.0) fL Gran % 73.9 H (36.0-66.0) % Immature Gran % (Auto) 0.5 H (0.00-0.4) % Nucleat RBC Rel Count 0.0 (0.00-0.1) % Eos # (Auto) 0.20 (0-0.5) x10^3/uL Immature Gran # (Auto) 0.05 H (0.00-0.03) x10^3u/L Absolute Lymphs (auto) 1.68 (1.0-4.6) x10^3/uL Absolute Monos (auto) 0.87 (0.0-1.3) x10^3/uL Absolute Nucleated RBC 0.00 (0.00-0.01) x10^3u/L Lymphocytes % 15.4 L (24.0-44.0) % Monocytes % 8.0 (0.0-12.0) % Eosinophils % 1.8 (0.00-5.0) % Basophils % 0.4 (0.0-0.4) % Absolute Granulocytes 8.10 H (1.4-6.9) x10^3/uL Basophils # 0.04 (0-0.4) x10^3/uL Sodium 128 L (137-145) mmol/L Potassium 3.9 (3.5-5.1) mmol/L Chloride 100 (98-107) mmol/L Carbon Dioxide 17 L (22-30) mmol/L Anion Gap 15.1 H (5-15) MEQ/L BUN 6 L (9-20) mg/dL Creatinine 0.56 L (0.66-1.25) mg/dL Estimated GFR > 60.0 ML/MIN Glucose 116 H (74-106) mg/dL Calcium 8.2 L (8.4-10.2) mg/dL Magnesium (1.6-2.3) mg/dL Total Bilirubin 0.40 (0.2-1.3) mg/dL AST 41 (17-59) U/L ALT 22 (0-50) U/L Alkaline Phosphatase 65 (38-126) U/L Troponin I < 0.012 (0.000-0.034) ng/mL Serum Total Protein 7.0 (6.3-8.2) g/dL Albumin 3.9 (3.5-5.0) g/dL Lipase 4633 H (23-300) U/L Ethyl Alcohol (0-10) mg/dL 08/19/23 08/19/23 08/19/23 Range/Units 08:20 08:20 13:00 WBC (4.0-10.5) x10^3/uL RBC (4.1-5.6) x10^6/uL Hgb (12.5-18.0) g/dL Hct (42-50) % MCV (78-100) fL MCH (26-32) pg MCHC (32-36) g/dL RDW (11.5-14.0) % Plt Count (150-450) x10^3/uL MPV (7.5-11.0) fL Gran % (36.0-66.0) % Immature Gran % (Auto) (0.00-0.4) % Nucleat RBC Rel Count (0.00-0.1) % Eos # (Auto) (0-0.5) x10^3/uL Immature Gran # (Auto) (0.00-0.03) x10^3u/L Absolute Lymphs (auto) (1.0-4.6) x10^3/uL Absolute Monos (auto) (0.0-1.3) x10^3/uL Absolute Nucleated RBC (0.00-0.01) x10^3u/L Lymphocytes % (24.0-44.0) % Monocytes % (0.0-12.0) % Eosinophils % (0.00-5.0) % Basophils % (0.0-0.4) % Absolute Granulocytes (1.4-6.9) x10^3/uL Basophils # (0-0.4) x10^3/uL Sodium (137-145) mmol/L Potassium (3.5-5.1) mmol/L Chloride (98-107) mmol/L Carbon Dioxide (22-30) mmol/L Anion Gap (5-15) MEQ/L BUN (9-20) mg/dL Creatinine (0.66-1.25) mg/dL Estimated GFR ML/MIN Glucose (74-106) mg/dL Calcium (8.4-10.2) mg/dL Magnesium 1.7 (1.6-2.3) mg/dL Total Bilirubin (0.2-1.3) mg/dL AST (17-59) U/L ALT (0-50) U/L Alkaline Phosphatase (38-126) U/L Troponin I < 0.012 < 0.012 (0.000-0.034) ng/mL Serum Total Protein (6.3-8.2) g/dL Albumin (3.5-5.0) g/dL Lipase (23-300) U/L Ethyl Alcohol 46 H (0-10) mg/dL Radiology Exams: Radiology Procedures Category Date Time Status ABDOMEN AND PELVIS W CONTRAST [CT] Stat Exams 08/19/23 03:54 Completed Assessment/Plan (1) Pancreatitis Current Visit: Yes Status: Acute Assessment & Plan: (1) Pancreatitis Current Visit: Yes Status: Acute Assessment & Plan: - LR at 250ml/hr - NPO - Dialudid for pain, zofran for nausea - Pt follows at the [facility], explained he will need OP f/u with GI at [facility] Code(s): K85.90 - ACUTE PANCREATITIS WITHOUT NECROSIS OR INFECTION, UNSP (2) Alcohol intoxication Current Visit: No Status: Acute Assessment & Plan: - advised cessation - lab confirms, and pt admits to ETOH use - alcohol withdrawal protocol (3) Oxygen desaturation during sleep Current Visit: Yes Status: Chronic Assessment & Plan: -2LNC Code(s): G47.34 - IDIO SLEEP RELATED NONOBSTRUCTIVE ALVEOLAR HYPOVENTILATION (4) GERD (gastroesophageal reflux disease) Current Visit: No Status: Chronic Assessment & Plan: - Continue protonix Code(s): K21.9 - GASTRO-ESOPHAGEAL REFLUX DISEASE WITHOUT ESOPHAGITIS (5) HTN (hypertension) Current Visit: No Status: Chronic Qualifiers: Hypertension type: primary hypertension Qualified Code(s): I10 - Essential (primary) hypertension Assessment & Plan: - stable- continue home meds Code(s): I10 - ESSENTIAL (PRIMARY) HYPERTENSION (6) History of TIA (transient ischemic attack) Current Visit: No Status: Chronic Assessment & Plan: - Continue plavix Code(s): Z86.73 - PRSNL HX OF TIA (TIA), AND CEREB INFRC W/O RESID DEFICITS (7) Hyperlipidemia Current Visit: No Status: Chronic Assessment & Plan: - continue statin Code(s): E78.5 - HYPERLIPIDEMIA, UNSPECIFIED (8) Tobacco dependence Current Visit: No Status: Chronic Assessment & Plan: - advised cessation - nicotine patch PPI: Protonix Code status: Full Next of Kin: Spouse, Debora Trotter, Code(s): K85.90 - ACUTE PANCREATITIS WITHOUT NECROSIS OR INFECTION, UNSP (2) Nausea and vomiting Current Visit: Yes Status: Acute Code(s): R11.2 - NAUSEA WITH VOMITING, UNSPECIFIED (3) Alcohol use Current Visit: Yes Status: Chronic Code(s): Z78.9 - OTHER SPECIFIED HEALTH STATUS (4) Oxygen desaturation during sleep Current Visit: Yes Status: Chronic Code(s): G47.34 - IDIO SLEEP RELATED NONOBSTRUCTIVE ALVEOLAR HYPOVENTILATION (5) Alcohol intoxication Current Visit: No Status: Acute (6) CAD (coronary artery disease) Current Visit: No Status: Chronic Code(s): I25.10 - ATHSCL HEART DISEASE OF [place] CORONARY ARTERY W/O ANG PCTRS (7) GERD (gastroesophageal reflux disease) Current Visit: No Status: Chronic Code(s): K21.9 - GASTRO-ESOPHAGEAL REFLUX DISEASE WITHOUT ESOPHAGITIS (8) HTN (hypertension) Current Visit: No Status: Chronic Qualifiers: Hypertension type: primary hypertension Qualified Code(s): I10 - Essential (primary) hypertension Code(s): I10 - ESSENTIAL (PRIMARY) HYPERTENSION (9) History of TIA (transient ischemic attack) Current Visit: No Status: Chronic Code(s): Z86.73 - PRSNL HX OF TIA (TIA), AND CEREB INFRC W/O RESID DEFICITS (10) Hyperlipidemia Current Visit: No Status: Chronic Code(s): E78.5 - HYPERLIPIDEMIA, UNSPECIFIED (11) Tobacco dependence Current Visit: No Status: Chronic Code(s): F17.200 - NICOTINE DEPENDENCE, UNSPECIFIED, UNCOMPLICATED
[2023-08-20 07:12] VITALS: RESP 18
[2023-08-20 07:45] LABS: Absolute Neutrophil Ct (ANC) 8.91 x10^3/uL (1.4-6.9); BASOPHIL % 0.3 % (0.0-0.4); Basophil (Absolute #) 0.04 x10^3/uL (0-0.4); Eosinophil % 1.3 % (0.00-5.0); Eosinophil (Absolute #) 0.16 x10^3/uL (0-0.5); IMMATURE GRAN # 0.05 x10^3u/L (0.00-0.03); IMMATURE GRAN % 0.4 % (0.00-0.4); Lymphocyte (Absolute #) 2.04 x10^3/uL (1.0-4.6); Lymphocytes % 16.5 % (24.0-44.0); Mean Cell Volume 86.3 fL (78-100); Mean Corpuscular Hemoglobin 27.4 pg (26-32); Mean Corpuscular Hgb Concent. 31.7 g/dL (32-36); Mean Platelet Volume 9.9 fL (7.5-11.0); Monocyte (Absolute #) 1.19 x10^3/uL (0.0-1.3); Monocytes % 9.6 % (0.0-12.0); Neutrophil % 71.9 % (36.0-66.0); Platelet Count 223 x10^3/uL (150-450); Red Blood Count 4.75 x10^6/uL (4.1-5.6); Red Cell Distribution Width 14.5 % (11.5-14.0); White Blood Count 12.4 x10^3/uL (4.0-10.5)
[2023-08-20 08:52] LABS: ALBUMIN 3.5 g/dL (3.5-5.0); ALKALINE PHOSPHATASE 65 U/L (38-126); ANION GAP 6.6 MEQ/L (5-15); BLOOD UREA NITROGEN 5 mg/dL (9-20); CHLORIDE 102 mmol/L (98-107); Calcium 8.6 mg/dL (8.4-10.2); Carbon Dioxide 27 mmol/L (22-30); Creatinine 1 0.47 mg/dL (0.66-1.25); EST GLOMERULAR FILTRATION RATE > 60.0 ML/MIN; Glucose 108 mg/dL (74-106); LIPASE 637 U/L (23-300); Potassium 3.9 mmol/L (3.5-5.1); SGOT/AST 29 U/L (17-59); SGPT/ALT 18 U/L (0-50); SODIUM 132 mmol/L (137-145); Total Protein 6.6 g/dL (6.3-8.2)
[2023-08-20] MEDS: PROTONIX 40 MG IV IV SCH (09:33)
[2023-08-20] MEDS: THERAGRAN MULTIVITAMIN PO SCH (09:33)
[2023-08-20] MEDS: Toprol-Xl 25MG Tablets PO SCH (09:33)
[2023-08-20] MEDS: FOLATE 1 MG PO SCH (09:33)
[2023-08-20] MEDS: PLAVIX Tablet PO SCH (09:33)
[2023-08-20] MEDS: Cozaar 50 MG PO SCH (09:33)
[2023-08-20] MEDS: NORVASC 5 MG PO SCH (09:33)
[2023-08-20] MEDS: VITAMIN B-1 100 MG PO SCH (09:33)
[2023-08-20] MEDS ORDERED: NON-FORMULARY ITEM (Omeprazole Magnesium [Prilosec Otc] 20 MG Tablet.Dr) PO SCH (10:00)
[2023-08-20] MEDS: Nicoderm CQ 21 MG TOP SCH (10:16)
[2023-08-20 11:26] VITALS: BP 135/78; PULSE 65; TEMP 97.1; O2SAT 96
--- NOTE | 2023-08-20 13:04 | PCM.DS ---
Discharge Summary Date of Admission: 08/19/23 08:38 Date of Discharge: 08/20/23 Admitting Physician: AVA BOYER MD Primary Care Provider: [facility] Allergies Allergies No Known Drug Allergies Allergy (Verified 08/19/23 03:40) Hospital Summary - Hospital Course Hospital Course: Mr.LEWIS WALLACE is a 53 year old male with PMHX of TIA, CAD, hyperlipidemia, HTN, OA, GERD, Pancreatitis, daily smoker, and social drinker. Pt cme into Er today for further evaluation of abd. pain. Pt reports his pain is worse in the RUQ, RLQ and epigastric region. Pt states the pain started 2hrs prior to coming in and has been worsening since, despite taking a norco. Pt also endorses nausea but denies any vomiting, cp, soa, diarrhea. Pt reports last BM was 3hrs ago. Pt states he drank 4-5 beers today, denies eating greasy/fatty foods. Pt reports this feels like his like flare of pancreatitis. Pt states his last BM was approx 0230 this am. In the ER he was given dilaudid, zofran, and IVF bolus. Will cOntinue meds and LR at 250 ml/hr. Pt NPO except meds. During hospital course patient endorsing resolution of abdominal pain, nausea, and vomiting. He is tolerating a regular diet and is requesting discharge today. He has been advised to follow up with GI as OP. He is to see his provider [facility] for referral. He has also been advised to stop drinking as this contributes to his recurrent flares of pancreatitis. Patient verbalizes understanding. New Diagnosis: Pancreatitis New Medications: None Follow Up: PCP/GI Latest Assessment & Plan (1) Pancreatitis Current Visit: Yes Status: Acute Assessment & Plan: (1) Pancreatitis Current Visit: Yes Status: Acute Assessment & Plan: - LR at 250ml/hr - NPO - Dialudid for pain, zofran for nausea - Pt follows at the [facility], explained he will need OP f/u with GI at [facility] Code(s): K85.90 - ACUTE PANCREATITIS WITHOUT NECROSIS OR INFECTION, UNSP (2) Alcohol intoxication Current Visit: No Status: Acute Assessment & Plan: - advised cessation - lab confirms, and pt admits to ETOH use - alcohol withdrawal protocol (3) Oxygen desaturation during sleep Current Visit: Yes Status: Chronic Assessment & Plan: -2LNC Code(s): G47.34 - IDIO SLEEP RELATED NONOBSTRUCTIVE ALVEOLAR HYPOVENTILATION (4) GERD (gastroesophageal reflux disease) Current Visit: No Status: Chronic Assessment & Plan: - Continue protonix Code(s): K21.9 - GASTRO-ESOPHAGEAL REFLUX DISEASE WITHOUT ESOPHAGITIS (5) HTN (hypertension) Current Visit: No Status: Chronic Qualifiers: Hypertension type: primary hypertension Qualified Code(s): I10 - Essential (primary) hypertension Assessment & Plan: - stable- continue home meds Code(s): I10 - ESSENTIAL (PRIMARY) HYPERTENSION (6) History of TIA (transient ischemic attack) Current Visit: No Status: Chronic Assessment & Plan: - Continue plavix Code(s): Z86.73 - PRSNL HX OF TIA (TIA), AND CEREB INFRC W/O RESID DEFICITS (7) Hyperlipidemia Current Visit: No Status: Chronic Assessment & Plan: - continue statin Code(s): E78.5 - HYPERLIPIDEMIA, UNSPECIFIED (8) Tobacco dependence Current Visit: No Status: Chronic Assessment & Plan: - advised cessation - nicotine patch I spent 35 minutes [id number] with the patient on the day of discharge performing discharge exam, discussing hospital stay and discharge instructions with patient and caregivers, preparation of discharge records, prescriptions & referral forms and addressing any questions/concerns the patient had as documented above. - Vitals & Intake/Output Vital Signs: Vital Signs Temperature 97.1 F 08/20/23 11:00 Pulse Rate 65 08/20/23 11:00 Respiratory Rate 18 08/20/23 12:00 Blood Pressure 135/78 08/20/23 11:00 O2 Sat by Pulse Oximetry 96 08/20/23 11:00 Intake & Output: Intake & Output 08/18/23 08/19/23 08/20/23 08/21/23 11:59 11:59 11:59 11:59 Intake Total 0 5077 360 Balance 0 5077 360 Weight 92.5 kg - Lab Result Diagrams: 08/20/23 04:43 08/20/23 04:43 Lab Results-Last 24 Hrs: Lab Results-Last 24 Hours 08/19/23 08/20/23 08/20/23 Range/Units 13:00 04:32 04:43 WBC 12.4 H (4.0-10.5) x10^3/uL RBC 4.75 (4.1-5.6) x10^6/uL Hgb 13.0 (12.5-18.0) g/dL Hct 41.0 L (42-50) % MCV 86.3 (78-100) fL MCH 27.4 (26-32) pg MCHC 31.7 L (32-36) g/dL RDW 14.5 H (11.5-14.0) % Plt Count 223 (150-450) x10^3/uL MPV 9.9 (7.5-11.0) fL Gran % 71.9 H (36.0-66.0) % Immature Gran % (Auto) 0.4 (0.00-0.4) % Nucleat RBC Rel Count 0.0 (0.00-0.1) % Eos # (Auto) 0.16 (0-0.5) x10^3/uL Immature Gran # (Auto) 0.05 H (0.00-0.03) x10^3u/L Absolute Lymphs (auto) 2.04 (1.0-4.6) x10^3/uL Absolute Monos (auto) 1.19 (0.0-1.3) x10^3/uL Absolute Nucleated RBC 0.00 (0.00-0.01) x10^3u/L Lymphocytes % 16.5 L (24.0-44.0) % Monocytes % 9.6 (0.0-12.0) % Eosinophils % 1.3 (0.00-5.0) % Basophils % 0.3 (0.0-0.4) % Absolute Granulocytes 8.91 H (1.4-6.9) x10^3/uL Basophils # 0.04 (0-0.4) x10^3/uL Sodium (137-145) mmol/L Potassium (3.5-5.1) mmol/L Chloride (98-107) mmol/L Carbon Dioxide (22-30) mmol/L Anion Gap (5-15) MEQ/L BUN (9-20) mg/dL Creatinine (0.66-1.25) mg/dL Estimated GFR ML/MIN Glucose (74-106) mg/dL Calcium (8.4-10.2) mg/dL Total Bilirubin (0.2-1.3) mg/dL AST (17-59) U/L ALT (0-50) U/L Alkaline Phosphatase (38-126) U/L Troponin I < 0.012 (0.000-0.034) ng/mL Serum Total Protein (6.3-8.2) g/dL Albumin (3.5-5.0) g/dL Triglycerides 124 (30-150) mg/dL Cholesterol 175 (50-200) mg/dL LDL Cholesterol 113 H (30-100) mg/dL HDL Cholesterol 39 L (40-60) mg/dL Heart Disease Risk Ratio 4.5 Lipase (23-300) U/L 08/20/23 Range/Units 04:43 WBC (4.0-10.5) x10^3/uL RBC (4.1-5.6) x10^6/uL Hgb (12.5-18.0) g/dL Hct (42-50) % MCV (78-100) fL MCH (26-32) pg MCHC (32-36) g/dL RDW (11.5-14.0) % Plt Count (150-450) x10^3/uL MPV (7.5-11.0) fL Gran % (36.0-66.0) % Immature Gran % (Auto) (0.00-0.4) % Nucleat RBC Rel Count (0.00-0.1) % Eos # (Auto) (0-0.5) x10^3/uL Immature Gran # (Auto) (0.00-0.03) x10^3u/L Absolute Lymphs (auto) (1.0-4.6) x10^3/uL Absolute Monos (auto) (0.0-1.3) x10^3/uL Absolute Nucleated RBC (0.00-0.01) x10^3u/L Lymphocytes % (24.0-44.0) % Monocytes % (0.0-12.0) % Eosinophils % (0.00-5.0) % Basophils % (0.0-0.4) % Absolute Granulocytes (1.4-6.9) x10^3/uL Basophils # (0-0.4) x10^3/uL Sodium 132 L (137-145) mmol/L Potassium 3.9 (3.5-5.1) mmol/L Chloride 102 (98-107) mmol/L Carbon Dioxide 27 (22-30) mmol/L Anion Gap 6.6 (5-15) MEQ/L BUN 5 L (9-20) mg/dL Creatinine 0.47 L (0.66-1.25) mg/dL Estimated GFR > 60.0 ML/MIN Glucose 108 H (74-106) mg/dL Calcium 8.6 (8.4-10.2) mg/dL Total Bilirubin 0.60 (0.2-1.3) mg/dL AST 29 (17-59) U/L ALT 18 (0-50) U/L Alkaline Phosphatase 65 (38-126) U/L Troponin I (0.000-0.034) ng/mL Serum Total Protein 6.6 (6.3-8.2) g/dL Albumin 3.5 (3.5-5.0) g/dL Triglycerides (30-150) mg/dL Cholesterol (50-200) mg/dL LDL Cholesterol (30-100) mg/dL HDL Cholesterol (40-60) mg/dL Heart Disease Risk Ratio Lipase 637 H (23-300) U/L - Radiology Exams Ordered Rad Exams-Entire Visit: Radiology Procedures Category Date Time Status ABDOMEN AND PELVIS W CONTRAST [CT] Stat Exams 08/19/23 03:54 Completed - Procedures and Test Procedures and Tests throughout Hospitalization: Therapy Orders & Screens 08/19/23 15:32 Oxygen Nasal Cannula 2 lpm Comment: Diagnosis: Pancreatitis Discharge Exam General Appearance: no apparent distress Neurologic Exam: alert, oriented x 3, cooperative Eye Exam: PERRL Ears, Nose, Throat Exam: normal ENT inspection Neck Exam: normal inspection Respiratory Exam: crackles/rales Cardiovascular Exam: regular rate/rhythm, normal heart sounds Gastrointestinal/Abdomen Exam: soft, normal bowel sounds Male Genitalia Exam: deferred Rectal Exam: deferred Back Exam: normal inspection Extremity Exam: normal inspection Skin Exam: normal color Final Diagnosis/Problem List - Final Discharge Diagnosis/Problem (1) Pancreatitis Current Visit: Yes Status: Acute Code(s): K85.90 - ACUTE PANCREATITIS WITHOUT NECROSIS OR INFECTION, UNSP (2) Nausea and vomiting Current Visit: Yes Status: Acute Code(s): R11.2 - NAUSEA WITH VOMITING, UNSPECIFIED (3) Alcohol use Current Visit: Yes Status: Chronic Code(s): Z78.9 - OTHER SPECIFIED HEALTH STATUS (4) Oxygen desaturation during sleep Current Visit: Yes Status: Chronic Code(s): G47.34 - IDIO SLEEP RELATED NONOBSTRUCTIVE ALVEOLAR HYPOVENTILATION (5) Alcohol intoxication Current Visit: No Status: Acute (6) CAD (coronary artery disease) Current Visit: No Status: Chronic Code(s): I25.10 - ATHSCL HEART DISEASE OF [place] CORONARY ARTERY W/O ANG PCTRS (7) GERD (gastroesophageal reflux disease) Current Visit: No Status: Chronic Code(s): K21.9 - GASTRO-ESOPHAGEAL REFLUX DISEASE WITHOUT ESOPHAGITIS (8) HTN (hypertension) Current Visit: No Status: Chronic Code(s): I10 - ESSENTIAL (PRIMARY) HYPERTENSION (9) History of TIA (transient ischemic attack) Current Visit: No Status: Chronic Code(s): Z86.73 - PRSNL HX OF TIA (TIA), AND CEREB INFRC W/O RESID DEFICITS (10) Hyperlipidemia Current Visit: No Status: Chronic Code(s): E78.5 - HYPERLIPIDEMIA, UNSPECIF IED (11) Tobacco dependence Current Visit: No Status: Chronic Code(s): F17.200 - NICOTINE DEPENDENCE, UN SPECIFIED, UNCOMPLICATED - Discharge Disposition: Home, Self-Care Condition: Good Prescriptions: Continue Omeprazole Magnesium [Prilosec Otc] 20 mg PO DAILY Clopidogrel Bisulfate [Plavix] 75 mg PO DAILY Amlodipine Besylate 5 mg PO DAILY Metoprolol Succinate 25 mg Xl* [Toprol-Xl 25MG Tablets] 50 mg PO DAILY Losartan Potassium 50 mg [Cozaar 50 MG] 50 mg PO DAILY Acetaminophen 325 mg [Tylenol 325 mg] 650 mg PO Q4H PRN PRN tablet PRN Reason: Pain, Fever, Headache Instructions: Pancreatitis ([facility]) Follow up with: HOSPITAL,'S [Primary Care Provider] - ([place] [id number] , [place] [address] PHONE NUMBER [phone])
== END 2023-08-20 13:36 | disposition home or self-care (01) ==
LOC: ED 03:38 → MED SURG 08:38
PROVIDERS: ADMIT Internal Medicine; ATTEND Internal Medicine
DX: K85.90 Acute pancreatitis without necrosis or infection, unspecified (principal); R11.2 Nausea with vomiting, unspecified; F10.129 Alcohol abuse with intoxication, unspecified; G47.34 Idiopathic sleep related nonobstructive alveolar hypoventilation; Z86.73 Personal history of transient ischemic attack (TIA), and cerebral infarction without residual deficits; I25.10 Atherosclerotic heart disease of native coronary artery without angina pectoris; F17.200 Nicotine dependence, unspecified, uncomplicated; E78.5 Hyperlipidemia, unspecified; I10 Essential (primary) hypertension; K21.9 Gastro-esophageal reflux disease without esophagitis; Z79.01 Long term (current) use of anticoagulants; Z79.899 Other long term (current) drug therapy; Z20.828 Contact with and (suspected) exposure to other viral communicable diseases
CPT/HCPCS: 36000; 36140; 36415; 74177; 80053; 80061; 82077; 83690; 83721; 83735; 84484; 85025; 93005; 93268; 94760; 96372; 99285; G0378; Q3014; 96374; J0612; J1170; J2405; Q0162; A9270-GY